=== PATIENT | female | born 1940 | race Caucasian/White ===

== ENCOUNTER 2023-12-06 11:36 | Emergency (ER) | payer MEDICARE, SELFPAY ==
--- NOTE | ~2023-12-06 | CT_ITS ---
EXAMINATION: CT HEAD WITHOUT CONTRAST CT CERVICAL SPINE WITHOUT CONTRAST CLINICAL INFORMATION: Head trauma. COMPARISON: None. TECHNIQUE: Contiguous axial imaging was performed from the skull base to vertex without intravenous administration of contrast. Contiguous axial imaging was performed from the upper chest through the skull base without intravenous administration of contrast. Coronal and sagittal reformats were obtained at the acquisition workstation. This CT examination was performed using dose optimization techniques as appropriate, variously including the following: *Automated exposure control *Adjustment of mA and/or kV according to patient size (this includes techniques or standardized protocols for targeted exams where dose is matched to indication/reason for exam; i.e. extremities or head) *Use of iterative reconstruction technique DLP: 879 mGy-cm FINDINGS: Head: There is no evidence of acute intracranial hemorrhage or edematous territorial infarction. Scattered hypoattenuation in the periventricular and deep white matter are consistent with moderate microangiopathy. [place]-white matter differentiation is preserved. Proportional prominence of the ventricles and sulcal spaces. No evidence for obstructive hydrocephalus. No abnormal mass effect or midline shift. No extra-axial fluid collections. Occipital scalp hematoma. No displaced calvarial fracture. The mastoid air cells and paranasal sinuses are clear.. Bilateral lens extraction Cervical Spine: The atlantooccipital and atlantoaxial articulations remain well aligned. No evidence of acute compression deformity or traumatic subluxation. Severe multilevel cervical spondylosis with intervertebral disc height loss, osteophyte complexes and facet/uncal hypertrophy leading to various degrees of neural foraminal encroachment and central canal stenosis. 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 Very prominent posterior longitudinal ligament calcifications leading to anterior spinal canal indentation. Of note, CT is insensitive for evaluation of the central spinal canal in the absence of intrathecal contrast. No prevertebral soft tissue thickening. The thyroid gland and remaining cervical soft tissues are normal in appearance. Few upper lobe nodule as, largest measuring 5 mm in the right apex with internal cystic changes (11:206). CT/CT cervical spine wo IV con IMPRESSION: 1. Occipital scalp hematoma without evidence of acute intracranial hemorrhage or edematous territorial infarction. 2. No acute cervical spinal fractures or malalignment. 3. 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 Consider further evaluation with an MRI of the cervical spine to correlate for myelopathy as clinically warranted. 4. Few upper lobe pulmonary nodules, largest measuring 5 mm. According to the UPDATED 2017 Fleischner Society recommendations, the advised follow-up imaging for multiple solid nodules measuring up to 6-8 mm is follow-up CT at 3 to 6 months.
[2023-12-06 11:44] VITALS: BP 137/78; BP 142/69; PULSE 57; PULSE 75; RESP 16; TEMP 36.8; O2SAT 97; O2SAT 98; BMI 22.9
--- NOTE | 2023-12-06 11:50 | PC.NURSE ---
biba from home d/t unwitnessed fall. pt was ambulating w/o use of assistive device and slipped on a wooden floor. +headstrike, -loc +coumadin. EMS noticed large hematoma to occipital region but not witnessed by this RN at this time d/t pt being in c-collar and spine immobilization needs to be in place at this time. pt alert and oriented x 3 - unaware on what year it is. states the year is 2013. otherwise pt has no complaints aside from 5/10 BULLARD. denies dizziness/lightheadedness/change in vision. pt seems to be in no apparent distress. no sob/wob noted. respirations even/unlabored. plan of care ongoing. call nielsen placed within reach.
[2023-12-06 12:07] LABS: MANUAL DIFF FLAG NO
--- NOTE | 2023-12-06 12:09 | ED_ITS ---
HPI - Fall General Chief Complaint: Fall Stated Complaint: FALL,HEMATOME ON FACE,ON COUMADIN PER EMS Time Seen by Provider: 12/06/23 11:42 Source: patient and EMS Mode of arrival: EMS Limitations: no limitations History of Present Illness ED Provider: WERO GALLAGHER Narrative: 83 yo female with PMH of DM, afib on coumadin who lives with her presents with c/o trip and fall at home hitting back of head on side of tub. States she slipped had no preceding symptoms and did not have LOC. She got right up. Patient on arrival knows it is November but initially confused on but corrected, knows where she is and who the president is. She denies any injury other than contusion to the head MD complaint: fall Onset (ago): minute(s) ([employer] ENGINE[employer]) Fall from: standing Fall witnessed: no Place fall occurred: home Loss of consciousness: none Prolonged down time: no Symptoms prior to fall: none Context: tripped/slipped Location of injury: head Severity: mild Quality: aching Associated symptoms (after fall): headache Related Data Allergies Allergy/AdvReac Type Severity Reaction Status Date / Time Iodinated Contrast Media AdvReac Abdominal Verified 12/06/23 11:45 [Contrast Dye] Pain Review of Systems 2 Review of Systems: Constitutional : No Fever, No Chills, No Fatigue ENT/Mouth : No sore throat, No Rhinorrhea Eyes: No Eye Pain, No Swelling, No Redness Cardiovascular : No Chest Pain, No SOB, No Dyspnea on Exertion Respiratory : No Cough, No Sputum Gastrointestinal : No Nausea, No Vomiting, No Diarrhea, No abdominal Pain Genitourinary : No Dysuria, No Urinary Frequency, No Hematuria, Musculoskeletal : No joint pain, No Myalgias, No Joint Swelling Skin : No Skin Lesions, No rash Neuro : No Weakness, No Numbness, No Dizziness, positive Headache Psych : No Anxiety/Panic, No Depression Heme/Lymph: No Bruising, No Bleeding,No Lymphadenopathy All other systems reviewed and are negative [facility] Past Medical History Attestation statement: The following information was validated with the patient. Source: old records reviewed Medical History Diabetes Afib Social History Social History (Updated 12/06/23 @ 12:15 by Gwendolyn Kramer DO) Patient Tobacco Use Status: Never used Tobacco Smoked in Last 30 Days: No Use of substances other than those prescribed or required for medical reasons: No Advance Directives: No Advance Directives Information Provided: No Do you have a plan to hurt others: No Plan Physical Exam 2 Vital Signs: Vital Signs: Last Vital Signs Temp 97.6 F 12/06/23 12:54 Pulse 60 12/06/23 12:54 Resp 16 12/06/23 12:54 BP 117/57 L 12/06/23 12:54 Pulse Ox 98 12/06/23 12:54 O2 Del Method Room Air 12/06/23 12:54 BMI result Body Mass Index 22.9 Appearance: Alert. Oriented X3 initially confused on year. No acute distress. Eyes: Pupils equal, round and reactive to light. ENT: Pharynx normal. no blood in nose or ears, hematoma to occiput Neck: Normal inspection. Neck supple. CVS: Normal heart rate and rhythm. Pulses normal. Respiratory: No respiratory distress. Breath sounds normal. Abdomen: Soft and nontender. Skin: Skin warm and dry. Normal skin color. Normal skin turgor. Extremities: No lower extremity edema. No calf ttp Neuro: Oriented X 3. No motor deficit. No sensory deficit. Course Course Course Narrative: also notes trip and fall Medical Decision Making Medical Decision Making [facility] Narrative: 83 yo female with PMH of DM and afib on coumadin here with c/o mechanical trip and fall at this time denies LOC states she got right up will need basic labs, CT head/cspine. Will continue to monitor and evaluate for any signs of neuro decompensation and work up for ICH. She denies prodrome and states this was a trip and fall Differential Diagnosis Differential Diagnoses: The differential diagnosis associated with the presentation includes head injury, ICH, fall Admission/Observation Consideration of admission/observation: Escalation of care including admission/observation considered at baseline per has early dementia and dates are hard for her labs reassuring mild bump in glucose INR 1.6 no myelopathy symptoms Lab Data [facility] Lab Attestation statement: I reviewed the patient's lab results. 12/06/23 12:04 12/06/23 12:04 Labs: Lab Results 12/06/23 Range/Units 12:04 WBC 6.2 (4.8-10.8) X10*3/uL RBC 3.76 L (4.20-5.50) X10*6/uL Hgb 12.0 (12.0-16.0) g/dl Hct 34.4 L (37.0-47.0) % MCV 91.5 (80.0-98.0) fL MCH 31.9 (27.0-33.0) pg MCHC 34.9 (31.0-35.0) g/dl RDW 12.3 (11.0-16.0) % Plt Count 182 (160-400) X10*3/uL MPV 9.1 L (9.4-12.3) fL Immature Gran % (Auto) 0.3 (0.0-0.4) % Neut % (Auto) 76.0 H (45-73) % Lymph % (Auto) 14.2 L (20-40) % [place] % (Auto) 8.2 (2-11) % Eos % (Auto) 0.8 (0-4) % Baso % (Auto) 0.5 (0-2) % Lymph # (Auto) 0.9 L (1.2-4.9) X10*3/uL [place] # (Auto) 0.5 (0.1-1.2) X10*3/uL Eos # (Auto) 0.1 (0.0-0.4) X10*3/uL Baso # (Auto) 0.0 (0.0-0.2) X10*3/uL Abs Immat Gran (auto) 0.02 (0.00-0.03) X10*3/uL Absolute Neuts (auto) 4.7 (2.0-8.3) x10*3/uL Absolute Nucleated RBC 0.000 (0.0-0.012) X10*3/uL Nucleated RBC % (auto) 0.0 (0.0-0.2) /100WBC PT 19.1 H (11.1-13.3) SEC INR 1.6 H (0.9-1.1) Sodium 140 (135-145) mmol/L Potassium 4.3 (3.3-5.1) mmol/L Chloride 103 (96-108) mmol/L Carbon Dioxide 28 (22-29) mmol/L Anion Gap 13 (12-20) BUN 25 H (9-16) mg/dL Creatinine 0.88 (0.5-1.4) mg/dL Estim Creat Clear Calc 39.6 Estimated GFR > 60 Random Glucose 326 H (60-115) mg/dL Calcium 9.0 (8.4-10.2) mg/dL Independent Interpretation I performed an independent interpretation of an: CT Scan (no trauma) Radiology Impression Discussion of test interpretation with radiology: I have reviewed the radiologist's reading. Independent Historian Clinical information obtained from an independent historian. History obtained from or confirmed by: EMS Discharge Plan Discharge Clinical Impression: Head injury Qualifiers: Encounter type: initial encounter Qualified Code(s): S09.90XA - Unspecified injury of head, initial encounter Hematoma of scalp Qualifiers: Encounter type: initial encounter Qualified Code(s): S00.03XA - Contusion of scalp, initial encounter Patient Disposition: Home, Self-Care Instructions: Head Injury (ED), Contusion in Adults (ED) Additional Instructions: INR 1.6 touch base with doctor tomorrow about coumadin level nonspecific nodules seen on CT scan of lung repeat CT scan of lung in 3 to 6 months notify your doctor no skull fracture or bleeding in the brain noted on exam return for worsening pain, confusion, vomiting or any other concerns. CT/CT cervical spine wo IV con IMPRESSION: 1. Occipital scalp hematoma without evidence of acute intracranial hemorrhage or edematous territorial infarction. 2. No acute cervical spinal fractures or malalignment. 3. 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 Consider further evaluation with an MRI of the cervical spine to correlate for myelopathy as clinically warranted. 4. Few upper lobe pulmonary nodules, largest measuring 5 mm. According to the UPDATED 2017 Fleischner Society recommendations, the advised follow-up imaging for multiple solid nodules measuring up to 6-8 mm is follow-up CT at 3 to 6 months. Print Language: Italian
[2023-12-06 12:10] LABS: Basophils Percent Auto 0.5 % (0-2); Eosinophils Absolute Auto 0.1 X10*3/uL (0.0-0.4); Eosinophils Percent Auto 0.8 % (0-4); Hematocrit 34.4 % (37.0-47.0); Imm Gran Abs Auto 0.02 X10*3/uL (0.00-0.03); Imm Gran Pct Auto 0.3 % (0.0-0.4); Lymphocytes Absolute Auto 0.9 X10*3/uL (1.2-4.9); Lymphocytes Percent Auto 14.2 % (20-40); Mean Corpuscular HGB Conc 34.9 g/dl (31.0-35.0); Mean Corpuscular Hemoglobin 31.9 pg (27.0-33.0); Mean Corpuscular Volume 91.5 fL (80.0-98.0); Mean Platelet Volume 9.1 fL (9.4-12.3); Monocytes Absolute Auto 0.5 X10*3/uL (0.1-1.2); Monocytes Percent Auto 8.2 % (2-11); Neutrophils Absolute Auto 4.7 x10*3/uL (2.0-8.3); Platelet Count 182 X10*3/uL (160-400); Red Blood Count 3.76 X10*6/uL (4.20-5.50); Red Cell Distribution Width 12.3 % (11.0-16.0); White Blood Count 6.2 X10*3/uL (4.8-10.8)
[2023-12-06 12:21] LABS: INTERNATIONAL NORM RATIO 1.6 (0.9-1.1); Prothrombin Time 19.1 SEC (11.1-13.3)
[2023-12-06 12:23] LABS: Anion Gap 13 (12-20); Blood Urea Nitrogen 25 mg/dL (9-16); Carbon Dioxide 28 mmol/L (22-29); Chloride 103 mmol/L (96-108); Creatinine Clr Calc Pharmacy 39.6; Estimated Glomerular Filt Rate > 60; Glucose Random 326 mg/dL (60-115); Potassium 4.3 mmol/L (3.3-5.1); Sodium 140 mmol/L (135-145)
[2023-12-06 12:54] VITALS: BP 117/57; PULSE 60; RESP 16; TEMP 36.4; O2SAT 98
[2023-12-06 14:15] VITALS: BP 130/87; PULSE 60; RESP 14; O2SAT 98
[2023-12-06 14:28] VITALS: BP 130/87; PULSE 60; RESP 14; TEMP 36.4; O2SAT 98
== END 2023-12-06 14:29 | disposition home or self-care (01) ==
PROVIDERS: Emergency Provider Emergency Medicine
DX: S00.03XA Contusion of scalp, initial encounter (principal); R51.9 Headache, unspecified; M54.2 Cervicalgia; W01.10XA Fall on same level from slipping, tripping and stumbling with subsequent striking against unspecified object, initial encounter; Y93.9 Activity, unspecified; Y92.002 Bathroom of unspecified non-institutional (private) residence as the place of occurrence of the external cause; Y99.8 Other external cause status; Z79.899 Other long term (current) drug therapy
CPT/HCPCS: 36415; 70450; 72125; 80048; 85025; 85610; 99284

== ENCOUNTER 2024-04-22 10:02 | Emergency (ER) | payer MEDICARE, SELFPAY ==
--- NOTE | 2024-04-22 10:29 | ECG_ITS ---
Test Reason : TACHY Blood Pressure : / mmHG Vent. Rate : 069 BPM Atrial Rate : 107 BPM P-R Int : 000 ms QRS Dur : 170 ms QT Int : 470 ms P-R-T Axes : 000 270 082 degrees QTc Int : 503 ms Ventricular-paced rhythm with premature ventricular or aberrantly conducted complexes Abnormal ECG No previous ECGs available Referred By: Generic ED Physician Electronically Signed By:CHON LIZARRAGA MD
[2024-04-22 10:30] VITALS: BP 144/73; BP 156/87; PULSE 69; PULSE 71; RESP 14; TEMP 36.8; O2SAT 100; O2SAT 99; BMI 29.4
[2024-04-22 10:34] VITALS: BP 144/73; PULSE 69; RESP 14; TEMP 36.8; O2SAT 99
--- NOTE | 2024-04-22 10:37 | MHC.EDTECH ---
EKG complete. Patient tolerated very well. Patient resting. Patient states she is comfortable. Call nielsen placed within reach.
[2024-04-22 10:53] LABS: MANUAL DIFF FLAG NO
[2024-04-22 10:59] LABS: Basophils Percent Auto 0.6 % (0-2); Eosinophils Absolute Auto 0.1 X10*3/uL (0.0-0.4); Eosinophils Percent Auto 1.3 % (0-4); Hematocrit 34.8 % (37.0-47.0); Hemoglobin 11.7 g/dl (12.0-16.0); Imm Gran Abs Auto 0.04 X10*3/uL (0.00-0.03); Imm Gran Pct Auto 0.6 % (0.0-0.4); Lymphocytes Absolute Auto 0.9 X10*3/uL (1.2-4.9); Lymphocytes Percent Auto 12.3 % (20-40); Mean Corpuscular HGB Conc 33.6 g/dl (31.0-35.0); Mean Corpuscular Hemoglobin 31.4 pg (27.0-33.0); Mean Corpuscular Volume 93.3 fL (80.0-98.0); Mean Platelet Volume 8.8 fL (9.4-12.3); Monocytes Absolute Auto 0.4 X10*3/uL (0.1-1.2); Monocytes Percent Auto 6.1 % (2-11); Neutrophils Absolute Auto 5.6 x10*3/uL (2.0-8.3); Neutrophils Percent Auto 79.1 % (45-73); Platelet Count 182 X10*3/uL (160-400); Red Blood Count 3.73 X10*6/uL (4.20-5.50); Red Cell Distribution Width 13.2 % (11.0-16.0)
--- NOTE | 2024-04-22 11:10 | ED.ARRPALP ---
HPI - Arrhythmia/Palpitations General Chief Complaint: Arrhythmia/Palpitations Stated Complaint: TACHY/BULLARD/N PER EMS Time Seen by Provider: 04/22/24 11:08 Source: EMS Mode of arrival: EMS Limitations: other History of Present Illness HPI narrative: 84-year-old with advanced dementia very limited historian had a pacemaker placed on March 28 who presents emergency department after noted to have a burning sensation in her chest and a blood pressure that was elevated. Patient was also reported to have a heart rate in the 110s patient's heart rate has been in the 70s for AMS and here patient is a very poor historian has no complaints on arrival was sent for x-ray and labs which have all resulted and are normal. Related Data Allergies Allergy/AdvReac Type Severity Reaction Status Date / Time Iodinated Contrast Media AdvReac Abdominal Verified 04/22/24 10:32 [Contrast Dye] Pain Review of Systems Review of Systems: Review of systems: General: Patient denies any fever chills recent illness or falls Musculoskeletal: Denies back pain or body aches or other injuries HEENT: denies headache, runny nose, ear pain Respiratory: denies shortness of breath, cough Cardiovascular: no chest pain or palpitations : denies dysuria, frequency Abdomen: no nausea vomiting denies abdominal pain Extremities: no swelling, no pain Skin: no diaphoresis Yes all other systems are reviewed and are negative [facility] Past Medical History Medical History Diabetes Afib Social History Social History (Updated 12/06/23 @ 12:15 by Gwendolyn Kramer DO) Patient Tobacco Use Status: Never used Tobacco Smoked in Last 30 Days: No Use of substances other than those prescribed or required for medical reasons: No Advance Directives: No Advance Directives Information Provided: Yes Do you have a plan to hurt others: No Plan Physical Exam Vital Signs: Vital Signs: Last Vital Signs Temp 98 F 04/22/24 13:06 Pulse 70 04/22/24 13:06 Resp 10 L 04/22/24 13:06 BP 116/68 04/22/24 13:06 Pulse Ox 98 04/22/24 13:06 O2 Del Method Room Air 04/22/24 13:06 BMI result Body Mass Index 29.4 General: Well-appearing well-nourished in no signs of distress HEENT: Normocephalic atraumatic Neck: No signs of JVD, no masses no tenderness or lymphadenopathy Cardiovascular: Regular rate and rhythm Respiratory: Clear to auscultation bilaterally Abdomen: Soft nontender no masses Extremities: Normal pedal pulses no signs of edema Skin: Dry warm no rashes Back: No tenderness full ROM Course Course Course Narrative: The pacer was interrogated by [employer] rep. Apparently was under since the patient's settings were changed x-ray and labs all look okay we are still waiting on the 2nd troponin at this time I do feel the patient will be able to go home. Reevaluation(s) Reevaluation #1: 1351 Labs are okay I will send home. Medical Decision Making Medical Decision Making [facility] Narrative: We will check labs and XR Differential Diagnosis Differential Diagnoses: The differential diagnosis associated with the presentation includes Arrhythmia dyspnea weakness dehydration electrolyte abnormality Lab Data 04/22/24 10:50 04/22/24 10:50 Labs: Lab Results 04/22/24 04/22/24 Range/Units 10:50 13:05 WBC 7.0 (4.8-10.8) X10*3/uL RBC 3.73 L (4.20-5.50) X10*6/uL Hgb 11.7 L (12.0-16.0) g/dl Hct 34.8 L (37.0-47.0) % MCV 93.3 (80.0-98.0) fL MCH 31.4 (27.0-33.0) pg MCHC 33.6 (31.0-35.0) g/dl RDW 13.2 (11.0-16.0) % Plt Count 182 (160-400) X10*3/uL MPV 8.8 L (9.4-12.3) fL Immature Gran % (Auto) 0.6 H (0.0-0.4) % Neut % (Auto) 79.1 H (45-73) % Lymph % (Auto) 12.3 L (20-40) % [place] % (Auto) 6.1 (2-11) % Eos % (Auto) 1.3 (0-4) % Baso % (Auto) 0.6 (0-2) % Lymph # (Auto) 0.9 L (1.2-4.9) X10*3/uL [place] # (Auto) 0.4 (0.1-1.2) X10*3/uL Eos # (Auto) 0.1 (0.0-0.4) X10*3/uL Baso # (Auto) 0.0 (0.0-0.2) X10*3/uL Abs Immat Gran (auto) 0.04 H (0.00-0.03) X10*3/uL Absolute Neuts (auto) 5.6 (2.0-8.3) x10*3/uL Absolute Nucleated RBC 0.000 (0.0-0.012) X10*3/uL Nucleated RBC % (auto) 0.0 (0.0-0.2) /100WBC Sodium 140 (135-145) mmol/L Potassium 4.4 (3.3-5.1) mmol/L Chloride 105 (96-108) mmol/L Carbon Dioxide 24 (22-29) mmol/L Anion Gap 15 (12-20) BUN 25 H (9-16) mg/dL Creatinine 0.84 (0.5-1.4) mg/dL Estim Creat Clear Calc 40.8 Estimated GFR > 60 Random Glucose 175 H (60-115) mg/dL Calcium 9.2 (8.4-10.2) mg/dL Troponin I High Sens 10.8 14.0 (<3.5-17.0) ng/L Discharge Plan Discharge Clinical Impression: Palpitations Patient Disposition: Home, Self-Care Instructions: Heart Palpitations (DC) Additional Instructions: You were seen today for palpitations. The setting on your pacemaker were changed. You also had XR and labs checked. Please call to follow up with your doctor Print Language: Mozambican
--- NOTE | 2024-04-22 11:29 | PC.NURSE ---
Pt. needs a pacemaker interrogation. Pacemaker is the [employer] brand. Call was made to customer service for the company. They took the pt.'s information, [facility] [place] and said that a rep. will be in touch to come out for an interrogation.
[2024-04-22 12:05] LABS: Anion Gap 15 (12-20); Blood Urea Nitrogen 25 mg/dL (9-16); Calcium 9.2 mg/dL (8.4-10.2); Carbon Dioxide 24 mmol/L (22-29); Chloride 105 mmol/L (96-108); Creatinine Clr Calc Pharmacy 40.8; Estimated Glomerular Filt Rate > 60; Glucose Random 175 mg/dL (60-115); Potassium 4.4 mmol/L (3.3-5.1); Sodium 140 mmol/L (135-145)
[2024-04-22 12:10] LABS: Troponin-I High Sensitivity 10.8 ng/L (<3.5-17.0)
--- NOTE | 2024-04-22 12:40 | PC.NURSE ---
Sha from [employer] called. States that he will be at [facility] by 1:30 to interrogate pt.'s pacemaker.
[2024-04-22 13:06] VITALS: BP 116/68; PULSE 70; RESP 10; TEMP 36.6; O2SAT 98
[2024-04-22 14:28] VITALS: BP 125/66; PULSE 71; RESP 15; TEMP 36.8; O2SAT 98
== END 2024-04-22 14:38 | disposition home or self-care (01) ==
PROVIDERS: Emergency Provider Student in an Organized Health Care Education/Training Program; PCP Internal Medicine Geriatric Medicine
DX: R00.2 Palpitations (principal); R00.0 Tachycardia, unspecified; E11.9 Type 2 diabetes mellitus without complications; I48.91 Unspecified atrial fibrillation; Z95.0 Presence of cardiac pacemaker
CPT/HCPCS: 36415; 80048; 84484; 85025; 93005; 99284; 99285

== ENCOUNTER → 2024-04-22 10:29 | Outpatient (BNV) | payer MEDICARE, MEDICAID, SELFPAY | PROVIDERS: Emergency Provider Student in an Organized Health Care Education/Training Program; PCP Internal Medicine Geriatric Medicine; Visit Provider Internal Medicine Cardiovascular Disease | DX: R94.31 Abnormal electrocardiogram [ECG] [EKG] (principal) | CPT/HCPCS: 93010 ==

== ENCOUNTER 2025-01-29 23:42 | Emergency (ER) | payer MEDICARE, SELFPAY ==
--- NOTE | 2025-01-29 | ECG_ITS ---
Test Reason : CP Blood Pressure : */* mmHG Vent. Rate : 65 BPM Atrial Rate : 65 BPM P-R Int : 176 ms QRS Dur : 182 ms QT Int : 482 ms P-R-T Axes : * 254 85 degrees QTcB Int : 501 ms AV dual-paced rhythm Abnormal ECG When compared with ECG of 22-Apr-2024 10:24, No significant changes seen Referred By: Generic ED Physician Electronically Signed By: Abelino Joaquin
[2025-01-29 23:50] VITALS: BP 136/70; BP 137/70; PULSE 69; PULSE 98; RESP 19; TEMP 37.1; O2SAT 96; O2SAT 98; BMI 25.4
[2025-01-30] VITALS: BP 140/67; PULSE 69; RESP 15; O2SAT 97
--- NOTE | 2025-01-30 | PC.NURSE ---
pt biba from home c/o left sided chest pain radiating to left side of back x 1 hr [employer]. pt reports associated nausea. denies any episodes of vomiting/sob/diaphoresis. hx afib (+warfarin), pacemaker in place. 324 ASA and 0.4mg sublingual nitro administered w/ some effectiveness. hx dementia. upon ED arrival - pt mostly alert and oriented. confused at times. pleasant. vss and up to date. nsr - a-paced on the air sampling and monitoring. 20gIV in the left AC via EMS - patent/intact. additional 18gIV placed in the right AC - labs obtained/sent to lab. ekg obtained by tech. pt also reports feeling unwell and extra sleepy x 4 days. denies any urinary sx/fevers/chills. pt on RA w/o difficulty. no sob/wob noted. respirations even/unlabored. plan of care ongoing. call nielsen placed within reach.
[2025-01-30 00:04] LABS: MANUAL DIFF FLAG NO
[2025-01-30 00:07] LABS: Hematocrit 30.2 % (37.0-47.0); Hemoglobin 10.2 g/dl (12.0-16.0); Imm Gran Abs Auto 0.03 X10*3/uL (0.00-0.03); Imm Gran Pct Auto 0.4 % (0.0-0.4); Lymphocytes Absolute Auto 0.5 X10*3/uL (1.2-4.9); Mean Corpuscular HGB Conc 33.8 g/dl (31.0-35.0); Mean Corpuscular Hemoglobin 31.1 pg (27.0-33.0); Mean Corpuscular Volume 92.1 fL (80.0-98.0); NRBC Abs Auto 0.000 X10*3/uL (0.0-0.012); NRBC Pct Auto 0.0 /100WBC (0.0-0.2); Platelet Count 181 X10*3/uL (160-400); Red Blood Count 3.28 X10*6/uL (4.20-5.50); White Blood Count 7.0 X10*3/uL (4.8-10.8)
[2025-01-30 00:14] LABS: INTERNATIONAL NORM RATIO 4.3 (0.9-1.1); Prothrombin Time 48.9 SEC (10.9-12.4)
--- NOTE | 2025-01-30 00:14 | ED.CHESTPAIN ---
HPI - Chest Pain General Chief Complaint: Chest Pain Stated Complaint: Chest Pain radiate to the back Time Seen by Provider: 01/30/25 00:14 Source: patient Mode of arrival: ambulatory Limitations: no limitations History of Present Illness ED Provider: HPI narrative: Patient's history of atrial fibrillation status post pacemaker which was placed about 10 years ago your just got the battery change in 07/13 been having discomfort at the pacemaker site for last few days got worse earlier today feeling the pain at around the pacemaker going to the back no syncope episode no palpitation for last 4 days patient is also not feeling well no fever no chills does have some nausea no vomiting no urinary symptom no abdominal pain Related Data Allergies Allergy/AdvReac Type Severity Reaction Status Date / Time Iodinated Contrast Media AdvReac Abdominal Verified 01/29/25 23:51 (Contrast Dye) Pain Review of Systems Review of Systems: Yes all other systems are reviewed and are negative [facility] Past Medical History Medical History Diabetes Afib Social History Social History Patient Tobacco Use Status: Never used Tobacco Smoked in Last 30 Days: No Use of substances other than those prescribed or required for medical reasons: No Advance Directives: No Advance Directives Information Provided: Yes Do you have a plan to hurt others: No Plan Physical Exam Vital Signs: Vital Signs: Last Vital Signs Temp 99.2 F 01/30/25 00:37 Pulse 69 01/30/25 00:37 Resp 17 01/30/25 00:37 BP 140/67 H 01/30/25 00:37 Pulse Ox 97 01/30/25 00:37 O2 Del Method Room Air 01/30/25 00:37 BMI result Body Mass Index 25.4 Appearance: Alert. Oriented X3. No acute distress. Eyes: No pallor or icterus ENT: Pharynx normal. Oral Mucosa moist Neck: Normal inspection. Neck supple. CVS: Normal heart rate and rhythm. Pulses normal. No murmur rub or gallop tenderness at the pacemaker site Respiratory: No respiratory distress. Equal air entry bilateral, no wheezing/rales/rhonchi Abdomen: Soft and nontender. Bowel sounds are present, no mass palpable, no CVA tenderness Skin: Skin warm and dry. Normal skin color. Normal skin turgor. Extremities: No lower extremity edema. No calf tenderness Neuro: Oriented X 3. No motor deficit. 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 01/29/25 23:59 01/29/25 23:59 Labs: Lab Results 01/29/25 01/30/25 01/30/25 Range/Units 23:59 00:41 01:43 WBC 7.0 (4.8-10.8) X10*3/uL RBC 3.28 L (4.20-5.50) X10*6/uL Hgb 10.2 L (12.0-16.0) g/dl Hct 30.2 L (37.0-47.0) % MCV 92.1 (80.0-98.0) fL MCH 31.1 (27.0-33.0) pg MCHC 33.8 (31.0-35.0) g/dl RDW 14.6 (11.0-16.0) % Plt Count 181 (160-400) X10*3/uL MPV 9.0 L (9.4-12.3) fL Immature Gran % (Auto) 0.4 (0.0-0.4) % Neut % (Auto) 79.6 H (45-73) % Lymph % (Auto) 7.1 L (20-40) % [place] % (Auto) 11.4 H (2-11) % Eos % (Auto) 1.1 (0-4) % Baso % (Auto) 0.4 (0-2) % Lymph # (Auto) 0.5 L (1.2-4.9) X10*3/uL [place] # (Auto) 0.8 (0.1-1.2) X10*3/uL Eos # (Auto) 0.1 (0.0-0.4) X10*3/uL Baso # (Auto) 0.0 (0.0-0.2) X10*3/uL Abs Immat Gran (auto) 0.03 (0.00-0.03) X10*3/uL Absolute Neuts (auto) 5.6 (2.0-8.3) x10*3/uL Absolute Nucleated RBC 0.000 (0.0-0.012) X10*3/uL Nucleated RBC % (auto) 0.0 (0.0-0.2) /100WBC PT 48.9 H (10.9-12.4) SEC INR 4.3 H D (0.9-1.1) APTT 51.5 H (26.7-34.1) SEC Sodium 142 (135-145) mmol/L Potassium 4.0 (3.3-5.1) mmol/L Chloride 105 (96-108) mmol/L Carbon Dioxide 27 (22-29) mmol/L Anion Gap 14 (12-20) BUN 24 H (9-16) mg/dL Creatinine 0.94 (0.5-1.4) mg/dL Estim Creat Clear Calc 40.2 Estimated GFR 57 Random Glucose 190 H (60-115) mg/dL Calcium 9.0 (8.4-10.2) mg/dL Magnesium 1.6 (1.6-2.6) mg/dL Total Bilirubin 0.6 (0.0-1.0) mg/dL AST 34 H (5-31) U/L ALT 22 (0-31) U/L Alkaline Phosphatase 94 (39-117) U/L Troponin I High Sens 30.1 H D 28.6 H (<3.5-17.0) ng/L B-Natriuretic Peptide 243 H (<100) pg/mL Total Protein 6.6 (6.5-8.0) g/dL Albumin 4.3 (3.5-5.0) g/dL Urine Color Yellow Urine Appearance Clear Urine pH 5.5 (5.0-9.0) Ur Specific [place] 1.015 (1.005-1.025) Urine Protein 100 (2+) H (Neg-Trace) mg/dL Urine Glucose (UA) Negative (Negative) mg/dL Urine Ketones Negative (Negative) mg/dL Urine Blood Trace H (Negative) Urine Nitrite Negative (Negative) Ur Leukocyte Esterase Trace H (Negative) Urine RBC 6-10 H (0-2) /HPF Urine WBC 0-5 (0-5) /HPF Ur Squamous Epith Cells 0-2 (0-2) /HPF Urine Bacteria None Seen (None Seen) Hyaline Casts 0-2 (0-2) /LPF Independent Interpretation I performed an independent interpretation of an: EKG Interpretation: Pacemaker beats ventricular rate of 65 beats per minute no acute ST-T changes no acute ischemia Discharge Plan Discharge Clinical Impression: Pacemaker syndrome Patient Disposition: Home, Self-Care Instructions: Chest Wall Pain (ED), Pacemaker (DC) Additional Instructions: Your pain in the left side of the chest is from the pacemaker Take Tylenol for pain as needed Follow up with your PCP/cardiogram Print Language: Serbian
[2025-01-30 00:17] LABS: Partial Thromboplastin Time 51.5 SEC (26.7-34.1)
[2025-01-30 00:19] LABS: Alanine Aminotransferase 22 U/L (0-31); Albumin Level 4.3 g/dL (3.5-5.0); Alkaline Phosphatase 94 U/L (39-117); Anion Gap 14 (12-20); Aspartate Amino Transferase 34 U/L (5-31); Blood Urea Nitrogen 24 mg/dL (9-16); Calcium 9.0 mg/dL (8.4-10.2); Carbon Dioxide 27 mmol/L (22-29); Chloride 105 mmol/L (96-108); Creatinine Clr Calc Pharmacy 40.2; Estimated Glomerular Filt Rate 57; Magnesium 1.6 mg/dL (1.6-2.6); Potassium 4.0 mmol/L (3.3-5.1); Sodium 142 mmol/L (135-145); Total Protein 6.6 g/dL (6.5-8.0)
[2025-01-30 00:24] LABS: B Type Natriuretic Peptide 243 pg/mL (<100); Troponin-I High Sensitivity 30.1 ng/L (<3.5-17.0)
[2025-01-30 00:37] VITALS: BP 140/67; PULSE 69; RESP 17; TEMP 37.3; O2SAT 97
--- NOTE | 2025-01-30 00:41 | PC.NURSE ---
1:1 assist OOB d/t unsteady gait. pt assisted to the restroom. urine specimen utilized/sent to lab. pt seemingly warm to the touch - rectal temp obtained displaying 99.2. otherwise vss and up to date. nsr on the residential monitor - a-paced. pt remains on RA w/o difficulty. no sob/wob noted. respirations even/unlabored. remains bedside for support. plan of care ongoing. call nielsen placed within reach.
[2025-01-30 00:48] LABS: Appearance Urine Clear; Glucose Urine UA Negative (Negative); PH 5.5 (5.0-9.0); Specific Gravity - Urine 1.015 (1.005-1.025); UMIC TRIGGER UACC YES
[2025-01-30 02:06] LABS: Troponin-I High Sensitivity 28.6 ng/L (<3.5-17.0)
[2025-01-30 02:26] VITALS: BP 117/58; PULSE 70; RESP 13; TEMP 36.9; O2SAT 95
[2025-01-30 02:28] VITALS: BP 117/58; PULSE 70; RESP 13; TEMP 36.9; O2SAT 95
== END 2025-01-30 02:42 | disposition home or self-care (01) ==
PROVIDERS: Emergency Provider Internal Medicine
DX: R07.9 Chest pain, unspecified (principal); Z95.0 Presence of cardiac pacemaker; I48.91 Unspecified atrial fibrillation
CPT/HCPCS: 36415; 80053; 81001; 83735; 83880; 84484; 85025; 85610; 85730; 93005; 99283; 99285

== ENCOUNTER → 2025-01-29 23:53 | Outpatient (BNV) | payer MEDICARE, SELFPAY | PROVIDERS: Emergency Provider Internal Medicine; Visit Provider Internal Medicine Cardiovascular Disease | DX: R94.31 Abnormal electrocardiogram [ECG] [EKG] (principal); R07.9 Chest pain, unspecified | CPT/HCPCS: 93010 ==

== ENCOUNTER 2025-06-02 18:42 | Emergency (ER) | payer MEDICARE, MEDICAID, SELFPAY ==
--- OUTSIDE RECORDS SUMMARY | 2024-09-30 06:10 | XMS_ITS ---
Author Organization - [facility] Address [address] [place] [address] Care Team Providers Care Java Analyst Name Role Phone Danni Rodgers Unavailable [phone] BLADE LOPEZ Unavailable [phone] REASON FOR VISIT *Initial Care Plan Encounters Encounter Location Date Provider Diagnosis - [facility] [address] [place] [address] 09/30/2024 BLADE LOPEZ Plan Of Treatment No Information Procedure Notes * Category Sub-Category Detail Notes RN Interventions Initial RN intervent ions via MICROBIOLOGY DIRECTOR onboarding note Onboarding visit documentation reviewed to form today's care plan: . Based on chart review, the following iss ues were identified:: . Care Plan established for ea ch focus issues outlined in the MICROBIOLOGY DIRECTOR onboarding note:: . Community Providers PCP information updated in D MARBELLA, as needed: . Specialist information updated in DASH, as needed: . Pharmacy information updated in eCW and DASH, as needed: . RPM Did MICROBIOLOGY DIRECTOR order RPM?: . DME/Supplies Did MICROBIOLOGY DIRECTOR order DME/Supplies?: . ACP Forms Did MICROBIOLOGY DIRECTOR request ACP forms?: . Care Coordination Did MICROBIOLOGY DIRECTOR request any other care coordination?: . PERS Did MICROBIOLOGY DIRECTOR order PERS?: . RN Summary/Recommendations: General:Heal th Twist Packer:MICROBIOLOGY DIRECTOR:PEC:[place]:RN: License Verification Did you verify that you are licensed to practice in the member's state?: . Progress Notes * Jessica WORKMANDOB:1940 ( 85 yo F)Acc No.[id number]:09/30/2024 Patient: Jessica STEPHENSON Provider: JEFFREY CASTAÑEDA :1940 A ge:84 Y S ex:Female Date:09/30/2024 Address:[address], [address] , [id number] Subjective: * Chief Complaints: * 1 . *Initial Care Plan. * Medical History: Objective: * Vitals: Assessment: Plan: * Treatment: * Procedures: * *RN Interventions: Initial RN interventions via MICROBIOLOGY DIRECTOR onboarding note O nboarding visit documentation reviewed to form today's care plan . B ased on chart review, the following issues were identified: . C are Plan established for each focus issues outlined in the MICROBIOLOGY DIRECTOR onboarding note: . Community Providers P CP information updated in DASH, as needed?. S pecialist information updated in DASH, as needed . P harmacy information updated in eCW and DASH, as needed . RPM D id MICROBIOLOGY DIRECTOR order RPM? . DME/Supplies D id MICROBIOLOGY DIRECTOR order DME/Supplies? . ACP Forms D id MICROBIOLOGY DIRECTOR request ACP forms? . Care Coordination D id MICROBIOLOGY DIRECTOR request any other care coordination??. PERS D id MICROBIOLOGY DIRECTOR order PERS? . RN Summary/Recommendations: General: Health Twist Packer: MICROBIOLOGY DIRECTOR: PEC: [place]: RN:. License Verification D id you verify that you are licensed to practice in the member's state? . Care Plan: * Problems: * Billing Information: * Visit Code: * Procedure Codes: Care Plan Details* * Electronic signature of JEFFREY DUMONT RA on 06/02/2025 at 10:54 PM EST Sign off status: Pending * Provider: JEFFREY CASTAÑEDA Date: 0 09/30/2024 Generated for Branden ramirez/Norman/Edil on: 1 08/03/2024 10:54 PM EST
--- OUTSIDE RECORDS SUMMARY | 2025-05-28 23:59 | XMS_ITS | Continuity of Care Document ---
Author Organization [facility] Address [address] [place] [address]- Care Team Providers Care Strategic Partnership Manager Name Role Phone Dagoberto VALENCIA, Michaela Pulido Primary Care Physician [phone] Encounter [facility] Date(s): 04/28/25 - 05/28/25 [facility] [place] [address] [place] [address]- Encounter Type: Triage Allergies, Adverse Reactions, Alerts Substance Criticality Severity Reaction Reaction Severity Status clindamycin diarrhea and c. diff Active penicillin V potassium 1 Unable to assess criticality Persistent Moderate Tongue swelling Active donepezil Diarrhea Active iodinated radiocontrast dyes Allergy to IVP dye. Allergy to IVP dye. Active Demerol HCl Active Adhesive Bandage Act alex Latex Active 1swollen tongue Immunizations Given and Recorded Vaccine Date Status Refusal Reason influenza virus vaccine, inactivated 04/11/25 Heriberto rded influenza virus vaccine, inactivated 03/16/22 Heriberto rded influenza virus vaccine, inactivated 02/26/20 Heriberto rded influenza virus vaccine, inactivated 03/27/19 Heriberto rded influenza virus vaccine, inactivated 04/30/18 Give n influenza virus vaccine, inactivated 1 04/05/17 Re corded influenza virus vaccine, inactivated 9/14/16 Heriberto rded influenza virus vaccine, inactivated 03/10/11 Heriberto rded influenza virus vaccine, inactivated 04/26/10 Heriberto rded influenza virus vaccine, inactivated 02/06/09 Heriberto rded tetanus-diphtheria toxoids (Td) 12/18/23 Given SARS-CoV-2(COVID-19)mRNA-LNP vac([id number]) 05/24/23 Recorded RSV vaccine preF3, recombinant 2 05/09/23 Recorded RSV vaccine preF3, recombinant 05/09/23 Recorded [id number] 12y+ bivalent booster vax 03/16/22 Recorded SARS-CoV-2 mRNA ([id number]) vax 10/06/21 Recorded SARS-CoV-2 (COVID-19) mRNA BNT-162b2 vac 04/13/21 Recorded SARS-CoV-2 (COVID-19) mRNA BNT-162b2 vac 07/29/20 Recorded SARS-CoV-2 (COVID-19) mRNA BNT-162b2 vac 07/08/20 Recorded zoster vaccine, inactivated 12/22/20 Recorded zoster vaccine, inactivated 04/06/20 Recorded pneumococcal 13-valent vaccine 08/28/14 Recorded tetanus/diphtheria/pertussis, acel(Tdap) 08/27/13 Recorded Pneumovax 23 (oldterm) 06/19/08 Recorded 1Result Comment: [05/02/2017] [facility] 2Result Comment: done at [facility] Johny Zhong Medications acetaminophen 325 mg oral tablet 650 mg, 2, tablet, By Mouth, 2 times a day, # 112 tablet, Refills 2, Tot. Refills 2, Maintenance, 04/04/25 10:33:00 AM EDT, Route to Pharmacy Electronically, [facility], Partial fill upon patient request if the prescription is for a schedule II opioid drug., 172, cm, 03/20/25 13:27:00 EDT, Height, 66.8, kg, 03/03/25 17:00:00 EDT, Dry Weight Start Date: 04/04/25 Status: Ordered Medication Dispense Status: Completed Quantity: 112.0 Unit: tablet Total Allowed Fills: 3 Fills Dispensed: 0 Acidophilus Probiotic Blend oral capsule 1 capsule, By Mouth, Daily, # 28 capsule, 9 Refills, Maintenance, 03/04/25 10:14:00 PM EDT, [facility]; [facility], Partial fill upon patient request if the prescription is for a schedule II opioid drug., 1 capsule By Mouth Daily, 172, cm, 03/03/25 17:00:00 EDT, Height, 66.8, kg, 03/03/25 17:00:00 EDT, Dry Weight Start Date: 03/04/25 Status: Ordered Medication Dispense Status: Completed Quantity: 28.0 Unit: capsule Total Allowed Fills: 10 Fills Dispensed: 0 amiodarone 200 mg oral tablet 200 mg, 1, tablet, By Mouth, Daily, # 30 tablet, Refills 11, Tot. Refills 11, Maintenance, 09/18/24 3:33:00 PM EDT, Route to Pharmacy Electronically, [facility], replaces sotalol, 148, cm, 09/18/24 11:37:00 EDT, Height, 55, kg, 09/05/23 22:24:00 EDT, Dry Weight Start Date: 09/18/24 Status: Ordered Medication Dispense Status: Completed Quantity: 30.0 Unit: tablet Total Allowed Fills: 12 Fills Dispensed: 0 bifidobacterium-lactobacillus oral capsule 1 capsule, By Mouth, Daily, # 28 capsule, 5 Refills, Maintenance, 09/09/24 9:06:00 AM EDT, Capsule, [facility], Partial fill upon patient request if the prescription is for a schedule II opioid drug., 1 capsule By Mouth Daily, 148, cm, 07/03/24 14:04:00 EST, Height, 55, kg, 09/05/23 22:24:00 EDT, Dry Weight Start Date: 09/09/24 Status: Ordered Medication Dispense Status: Completed Quantity: 28.0 Unit: capsule Total Allowed Fills: 6 Fills Dispensed: 0 bumetanide 1 mg oral tablet 0.5 mg, 0.5, tablet, By Mouth, Daily, for 30 days, # 90 tablet, Refills 3, Tot. Refills 3, Physician Stop 12/08/25 4:11:00 PM EDT, 08/10/25 4:11:00 PM EST, Route to Pharmacy Electronically, [facility]/pharmacy #[id number], 152, cm, 02/15/25 0:36:00 EDT, Height, 68.14, kg, 02/15/25 0:36:00 EDT, Dry Weight Start Date: 08/10/25 Stop Date: 12/08/25 Status: Ordered Medication Dispense Status: Completed Quantity: 90.0 Unit: tablet Total Allowed Fills: 4 Fills Dispensed: 0 buPROPion 300 mg/24 hours (XL) oral tablet, extended release 1 tablet, By Mouth, Daily, # 28 tablet, 5 Refills, Maintenance, 02/28/25 9:54:00 AM EDT, [facility]/pharmacy #[id number], 152, cm, 02/24/25 9:38:00 EDT, Height, 68.14, kg, 02/15/25 0:36:00 EDT, Dry Weight Start Date: 02/28/25 Status: Ordered Medication Dispense Status: Completed Quantity: 28.0 Unit: tablet Total Allowed Fills: 6 Fills Dispensed: 0 busPIRone 5 mg oral tablet 1, tablet, By Mouth, 2 times a day, # 56 tablet, Refills 5, Tot. Refills 5, Maintenance, 02/28/25 9:54:00 AM EDT, Route to Pharmacy Electronically, [facility]/pharmacy #[id number], 152, cm, 02/24/25 9:38:00 EDT, Height, 68.14, kg, 02/15/25 0:36:00 EDT, Dry Weight Start Date: 02/28/25 Status: Ordered Medication Dispense Status: Completed Quantity: 56.0 Unit: tablet Total Allowed Fills: 6 Fills Dispensed: 0 diclofenac 1% topical gel See Instructions, APPLY 2 GRAMS TOPICALLY 4 TIMES A DAY DO NOT EXCEED 8 GRAMS/DAY/SINGLE JOINT OF UPPER EXTREMITIES, # 100 Gm, 1 Refills, [id number], 13, APPLY 2 GRAMS TOPICALLY 4 TIMES A DAY DONOT EXCEED 8 GRAMS/DAY/SINGLE JOINT OF UPPER EXTREMITIES, 152, cm, 05/19/21 11:27:00 EST, Height, 64.1, kg, 07/03/20 17:25:00 EST, Dry Weight Start Date: 07/02/21 Status: Ordered Medication Dispense Status: Completed Quantity: 100.0 Unit: g Total Allowed Fills: 1 Fills Dispensed: 0 escitalopram 10 mg oral tablet 1 tablet = 10 mg, By Mouth, Daily, # 28 tablet, 3 Refills, Maintenance, 05/27/25 10:57:00 PM EST, Tablet, [facility], Partial fill upon patient request if the prescription is for a schedule II opioid drug., 172, cm, 03/20/25 13:27:00 EDT, Height, 66.8, kg, 03/03/25 17:00:00 EDT, Dry Weight Start Date: 05/27/25 Status: Ordered Medication Dispense Status: Completed Quantity: 28.0 Unit: tablet Total Allowed Fills: 4 Fills Dispensed: 0 Feraheme 30 mg/mL intravenous solution = 510 mg, IV Infusion, Every 7 days, infused over at least 15 minutes, second dose in 3 to 8 days. To be given in Infusion., # 17 mL, 1 Refills, Maintenance, 02/04/25 2:55:00 AM EDT, Partial fill uponpatient request if the prescription is for a schedule II opioid drug. Start Date: 02/04/25 Status: Ordered Medication Dispense Status: Completed Quantity: 17.0 Unit: mL Total Allowed Fills: 2 Fills Dispensed: 0 ferrous sulfate (as elemental iron) 45 mg oral tablet, extended release 1 tablet = 45 mg, By Mouth, Daily, No refills, # 28 tablet, 9 Refills, Maintenance, 03/04/25 10:14:00 PM EDT, ER Tablet, [facility], Partial fill upon patient request if the prescription is for a schedule II opioid drug., 172, cm, 03/03/25 17:00:00 EDT, Height, 66.8, kg, 03/03/25 17:00:00 EDT, Dry Weight Start Date: 03/04/25 Status: Ordered Medication Dispense Status: Completed Quantity: 28.0 Unit: tablet Total Allowed Fills: 10 Fills Dispensed: 0 Fish Oil 1000 mg oral capsule See Instructions, TAKE 1 CAPSULE BY MOUTH 2 TIMES DAILY BEFORE BREAKFAST AND DINNER., # 56 capsule,5 Refills, Maintenance, 04/04/25 10:33:00 AM EDT, [facility], 172, cm, 03/20/25 13:27:00 EDT, Height, 66.8, kg, 03/03/25 17:00:00 EDT, Dry Weight Start Date: 04/04/25 Status: Ordered Medication Dispense Status: Completed Quantity: 56.0 Unit: capsule Total Allowed Fills: 6 Fills Dispensed: 0 glimepiride 1 mg oral tablet 1 tablet, By Mouth, Daily, # 30 tablet, 5 Refills, Maintenance, 05/26/25 12:25:00 PM [facility], 172, cm, 03/20/25 13:27:00 EDT, Height, 66.8, kg, 03/03/25 17:00:00 EDT, Dry Weight Start Date: 05/26/25 Status: Ordered Medication Dispense Status: Completed Quantity: 30.0 Unit: tablet Total Allowed Fills: 6 Fills Dispensed: 0 lidocaine 5% topical film PLEASE SEE ATTACHED FOR DETAILED DIRECTIONS Start Date: 03/18/25 Status: Ordered Medication Dispense Status: Completed Total Allowed Fills: 1 Fills Dispensed: 0 memantine 21 mg oral capsule, extended release See Instructions, TAKE (1) CAPSULE BY MOUTH EVERY DAY, # 28 capsule, 5 Refills, Maintenance, 01/03/25 11:46:00 AM EDT, [facility], 148, cm, 12/25/24 15:14:00 EDT, Height, 55, kg, 09/05/23 22:24:00 EDT, Dry Weight Start Date: 01/03/25 Status: Ordered Medication Dispense Status: Completed Quantity: 28.0 Unit: capsule Total Allowed Fills: 6 Fills Dispensed: 0 metFORMIN 1000 mg oral tablet See Instructions, 1/2 tablet every monring and 1 tablet By Mouth Daily with supper, # 42 tablet, 5 Refills, Maintenance, 05/26/25 12:25:00 PM [facility], 172, cm, 03/20/25 13:27:00 EDT, Height, 66.8, kg, 03/03/25 17:00:00 EDT, Dry Weight Start Date: 05/26/25 Status: Ordered Medication Dispense Status: Completed Quantity: 42.0 Unit: tablet Total Allowed Fills: 6 Fills Dispensed: 0 Nitrostat 0.4 mg sublingual tablet 1 tablet = 0.4 mg, Sublingual, Every 5 minutes, PRN for chest pain, # 100 tablet, 11 Refills, Maintenance, 05/13/24 1:46:00 PM EST, Tablet, [facility]/pharmacy #[id number], Partial fill upon patient request if the prescription is for a schedule II opioid drug., 148, cm, 05/13/24 12:58:00 EST, Height, 55, kg, 09/05/23 22:24:00 EDT, Dry Weight Start Date: 05/13/24 Status: Ordered Medication Dispense Status: Completed Quantity: 100.0 Unit: tablet Total Allowed Fills: 12 Fills Dispensed: 0 omeprazole 40 mg oral enteric coated capsule 1 capsule = 40 mg, By Mouth, Daily, PRN Control of Stomach Acid, for delivery in bubble pack, # 28 capsule, 5 Refills, Maintenance, 02/10/23 2:24:00 PM EDT, EC Capsule, [facility], Partial fill upon patient request if the prescription is for a schedule II opioid drug., 152, cm, 02/09/23 9:50:00 EDT, Height Start Date: 02/10/23 Status: Ordered Medication Dispense Status: Completed Quantity: 28.0 Unit: capsule Total Allowed Fills: 6 Fills Dispensed: 0 One Touch Delica Lancets See Instructions, # 100 each, Refills 3, Tot. Refills 3, Maintenance, 1 box = 100 lancets Sig: Use to test once daily and as needed for type 2 diabetes mellitus. E11.9, 02/14/22 3:28:00 PM EDT, Supply, 152, cm, 11/25/21 11:21:00 EDT, Height, 64.1, kg, 07/03/20 17:25:00 EST, Dry Weight Start Date: 02/14/22 Status: Ordered Medication Dispense Status: Completed Quantity: 100.0 Unit: each Total Allowed Fills: 4 Fills Dispensed: 0 One Touch Ultra 2 Glucose Meter See Instructions, # 1 each, Refills 1, Tot. Refills 1, Maintenance, DX E11.9 . Test BS 2 x a day, 12/13/21 5:26:00 PM EDT, Supply, 152, cm, 11/25/21 11:21:00 EDT, Height, 64.1, kg, 07/03/20 17:25:00 EST, Dry Weight Start Date: 12/13/21 Status: Ordered Medication Dispense Status: Completed Quantity: 1.0 Unit: each Total Allowed Fills: 2 Fills Dispensed: 0 ONE TOUCH ULTRA BLUE TEST STRP ONE TOUCH ULTRA BLUE TEST STRP, See Instructions, # 100 Unknown, 1 Refills, Maintenance, TEST BLOODGLUCOSE DAILY DX: E 11.9:, 10/08/24 7:12:00 PM EDT, 148, cm, 09/18/24 11:37:00 EDT, Height, 55, kg, 09/05/23 22:24:00 EDT, Dry Weight Start Date: 10/08/24 Status: Ordered Medication Dispense Status: Completed Quantity: 100.0 Unit: Unknown Total Allowed Fills: 1 Fills Dispensed: 0 rivastigmine 9.5 mg/24 hr transdermal film, extended release 1 patch, Topically, Daily, # 30 patch, 5 Refills, Maintenance, 08/06/24 2:50:00 PM EST, [facility]/pharmacy#[id number], 0, 1 patch Topically Daily, 148, cm, 07/03/24 14:04:00 EST, Height, 55, kg, 09/05/23 22:24:00 EDT, Dry Weight Start Date: 08/06/24 Status: Ordered Medication Dispense Status: Completed Quantity: 30.0 Unit: patch Total Allowed Fills: 6 Fills Dispensed: 0 Senior women's multivitamin Senior women's multivitamin, 1, tablet, By Mouth, Daily, # 28 tablet, Refills 5, Tot. Refills 5, Maintenance, Cancel vitamin B complex, 09/22/23 5:16:00 AM EDT, Supply, 144, cm, 09/21/23 9:51:00 EDT, Height, 55, kg, 09/05/23 22:24:00 EDT, Dry Weight Start Date: 09/22/23 Status: Ordered Medication Dispense Status: Completed Quantity: 28.0 Unit: tablet Total Allowed Fills: 6 Fills Dispensed: 0 simvastatin 10 mg oral tablet 1, tablet, By Mouth, Daily at bedtime, # 28 Unknown, Refills 9, Tot. Refills 9, Maintenance, 03/04/25 10:14:00 PM EDT, Route to Pharmacy Electronically, [facility], 172, cm, 03/03/25 17:00:00 EDT, Height, 66.8, kg, 03/03/25 17:00:00 EDT, Dry Weight Start Date: 03/04/25 Status: Ordered Medication Dispense Status: Completed Quantity: 28.0 Unit: Unknown Total Allowed Fills: 10 Fills Dispensed: 0 triamcinolone 0.1% topical cream 1 application, Topically, 2 times a day, PRN Rash, apply a thin film to affected area, # 60 Gm, 1 Refills, Maintenance, 07/03/24 3:04:00 PM EST, Cream, [facility]/pharmacy #[id number], Partial fill upon patient request if the prescription is for a schedule II opioid drug., 1 application Topically 2 times a day,[place] N:Rash,Instr:apply a thin film ; to affected area, 148, cm, 07/03/24 14:04:00 EST, Height, 55, kg, 09/05/23 22:24:00 EDT, Dry Weight Start Date: 07/03/24 Status: Ordered Medication Dispense Status: Completed Quantity: 60.0 Unit: g Total Allowed Fills: 2 Fills Dispensed: 0 Vitamin C 250 mg oral tablet 1 tablet, By Mouth, Daily, # 28 tablet, 9 Refills, Maintenance, 03/04/25 10:14:00 PM EDT, [facility], 172, cm, 03/03/25 17:00:00 EDT, Height, 66.8, kg, 03/03/25 17:00:00 EDT, Dry Weight Start Date: 03/04/25 Status: Ordered Medication Dispense Status: Completed Quantity: 28.0 Unit: tablet Total Allowed Fills: 10 Fills Dispensed: 0 Vitamin D3 1000 unit soft gel Vitamin D3 1000 unit soft gel, See Instructions, # 8 capsule, Refills 5, Tot. Refills 5, Maintenance, take 1 cap leonila Monday and , 02/28/25 9:54:00 AM EDT, Supply, 152, cm, 02/24/25 9:38:00 EDT, Height, 68.14, kg, 02/15/25 0:36:00 EDT, Dry Weight Start Date: 02/28/25 Status: Ordered Medication Dispense Status: Completed Quantity: 8.0 Unit: capsule Total Allowed Fills: 6 Fills Dispensed: 0 warfarin 2.5 mg oral tablet See Instructions, take 1/2 to 1 tablet By Mouth Daily as directed by the coumadin clinic (replaces 5 mg tabs), # 30 tablet, 5 Refills, Maintenance, 05/09/25 3:15:00 PM EST, Tablet, [facility], Partial fill upon patient request if the prescription is for a schedule II opioid drug., 172, cm, 03/20/25 13:27:00 EDT, Height, 66.8, kg, 03/03/25 17:00:00 EDT, Dry Weight Start Date: 05/09/25 Status: Ordered Medication Dispense Status: Completed Quantity: 30.0 Unit: tablet Total Allowed Fills: 6 Fills Dispensed: 0 warfarin 5 mg oral tablet 1.5 tablet, By Mouth, Daily, DIRECTED BY CLINIC AND INR LEVEL., # 45 tablet, 5 Refills, Maintenance, 12/27/24 11:56:00 PM EDT, [facility], 148, cm, 12/25/24 15:14:00 EDT, Height, 55, kg, 09/05/23 22:24:00 EDT, Dry Weight Start Date: 12/27/24 Status: Ordered Medication Dispense Status: Completed Quantity: 45.0 Unit: tablet Total Allowed Fills: 1 Fills Dispensed: 0 Problem List Condition Confirmation Course Effective Dates Status H ealth Status Informant Anemia Confirmed Active Generalized weakness Confirmed Active Atrial flutter Confirmed Active Basal cell carcinoma of skin of trunk Confirmed Active Cholelithiasis Confirmed Active Cardiomyopathy Confirmed Active Carpal tunnel syndrome Confirmed Active Chronic kidney disease, stage III (moderate) Confirmed Active Diarrhea Confirmed Active Diabetic nephropathy Confirmed Active Diverticulosis Confirmed Active Anticoagulated Confirmed Active Requires assistance with activities of daily living (ADL) Confirmed Active Frail elderly Confirmed Active Esophageal reflux Confirmed Active Generalized anxiety disorder Confirmed Active Heart failure with mildly reduced ejection fraction Confirmed Active (HFpEF) heart failure with preserved ejection fraction Confirmed Active Hypertension Confirmed Active Hypomagnesemia Confirmed Active Iron deficiency anemia Confirmed Active Nephrolithiasis Confirmed Active Low back pain Confirmed Active Depression, major, in remission Confirmed Active Obstructive sleep apnea Confirmed Active Onychomycosis Confirmed Active Osteopenia of hip Confirmed Active Atrial fibrillation Confirmed Active Hyperlipidemia Confirmed Active Scoliosis of thoracolumbar spine Confirmed Active SSS s/p PPM Confirmed Active Tricuspid regurgitation Confirmed Active Type 2 diabetes with nephropathy Confirmed Active Vascular dementia Confirmed Active Social History Social History Type Response Smoking Status Never smoker entered on: 03/09/15 Sexual Orientation Self described orien tation: ; Straight or heterosexual Sex Female Sex Representation Female (finding) Implantable Device List Procedure Provider Procedure Date Device Type Site Battery Change Pacemaker Single/Dual/Biv Dylon Turner MD 03/28/24 Unknown Chest Device Identifier Serial Number Lot or Batch Number Manufacturing Date Expiration Date Distinct Identification Code MRI Safety Implantable Status Assigning Authority Unknown [id number] Unknown Unknown 03/18/25 Unknown Unknown Active Unknown Patient Care team information Care Team Personnel Name: Sally Rodriguez RN Position: [facility] RN Member Role: Primary Care Nurse Name: Earlene Mclain RN Position: [facility] SN RN Member Role: Primary Care Nurse Name: Michaela Arenas MD Position: [facility] Physician - Primary Care Member Role: PCP Address: [address] [place] [address] Telecom: Name: Jared Negrete RN Position: [facility] RN Member Role: Primary Care Nurse Care Team Related Persons Name: LAMONT WORKMAN Name: TAMIKA WORKMAN Insurance Providers Guarantor name: JUVENAL WORKMAN Health Plan Information #: 1 Payer: MEDICARE B Payer Identifier: Member Number: [id number] Group Number: Subscriber Identifier: NA Relationship to Subscriber: self Coverage Type: NA Coverage Verification Date: NA Telecom: Address: Health Plan Information #: 2 Payer: [employer] SECONDARY ONLY Payer Identifier: NA Member Number: [id number] Group Number: Subscriber Identifier: NA Relationship to Subscriber: self Coverage Type: Medicare Other Coverage Verification Date: Telecom: Address:
--- NOTE | ~2025-06-02 | CT_ITS ---
CLINICAL HISTORY: biliary obstruction, pain, elevated bili CT abdomen and pelvis with contrast Comparison: None provided Findings: There is a partially visualized gyxav-gt-wtakrvmx sized right pleural effusion. There is a small left pleural effusion. There is mild bibasilar atelectasis. There is mild cardiomegaly and small pericardial effusion. There is cholelithiasis. Gallbladder appears otherwise normal. There is no biliary duct dilation. No focal hepatic lesion is seen. The pancreas, spleen, and adrenal glands are unremarkable. There are bilateral nonobstructing renal stones measuring up to 10 mm in the right kidney. There are a few bilateral renal cysts. There is a small amount of ascites. There is diffuse body wall edema. There is edema in the mesentery and retroperitoneal fat. There is diverticulosis in the left hemicolon. There is a moderate amount of stool in the colon. The gastrointestinal tract is otherwise unremarkable. The aorta is normal in diameter. No enlarged lymph nodes are seen. The uterus and ovaries are atrophic as expected. The psoas muscles appear enlarged hwyx-pbwjhno-hxbt-right. There are several small hyperdense foci within both iliopsoas muscles suspicious for foci of contrast extravasation. There is a small left retroperitoneal hematoma posterolateral to the left psoas. There is a small hematoma in the distal left iliopsoas muscle with active extravasation anterior to the left hip. There are few small curvilinear hyperdensities in the distal right iliopsoas possibly also active extravasation. There is no acute fracture or suspicious lytic or sclerotic lesion. There are degenerative changes throughout the lumbar spine. The bones appear demineralized. IMPRESSION: 1. Small hematoma with active extravasation in the distal left iliopsoas anterior to the left hip. There are also possible small foci of active extravasation in the distal right iliopsoas. 2. Enlargement of the psoas muscles bilaterally with several small hyperdense foci suspicious for intramuscular hematomas with foci of contrast extravasation. There is a small retroperitoneal hematoma posterolateral to the left psoas. 3. Small amount of ascites and diffuse body wall and mesenteric edema. 4. Partially visualized npvas-aa-gkjxnked right pleural effusion and small left pleural effusion. 5. Cholelithiasis. 6. Bilateral nonobstructing renal stones. 7. Additional findings as above. This document has been electronically signed by: Juan David Ritchie MD on 06/02/2025 23:01:12
--- NOTE | ~2025-06-02 | XR_ITS ---
CLINICAL HISTORY: trauma 3 views left knee Comparison: None provided Findings: There is no fracture or dislocation. Evaluation for an effusion is limited by obliquity of the lateral view. 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 There appears to be subcutaneous edema. There is arterial calcification. Impression: No acute findings. This document has been electronically signed by: Juan David Ritchie MD on 06/02/2025 21:53:15
--- NOTE | ~2025-06-02 | XR_ITS ---
CLINICAL HISTORY: effusion captured on CT cervical spine 1 view chest x-ray. Comparison: CT/SR - ABDOMEN ABD_PELVIS_IV_CONTRAST (ADULT) - 06/02/25 22:[address]/SR - CT CERVICAL SPINE WO IV CON - 06/02/25 20:42 EST Findings: Hazy opacity in the right lower lung is due to a memyf-hi-fvhqlbha sized layering effusion in correlation with the CTs. The small left pleural effusion seen on the CT of the abdomen and pelvis is not visualized on the AP radiograph. There is mild right basilar atelectasis. There appears to be pulmonary vascular congestion. Enlargement of the cardiac silhouette is due to mild cardiomegaly and small pericardial effusion in correlation with the CT. Pacemaker leads are in the right atrium and right ventricle. IMPRESSION: Findings as above. This document has been electronically signed by: Juan David Ritchie MD on 06/02/2025 22:47:03
--- NOTE | ~2025-06-02 | CT_ITS ---
CLINICAL HISTORY: trauma CT cervical spine without contrast Comparison: None provided Findings: The alignment of the cervical spine is normal. There is no fracture. There is multilevel degenerative disc disease. 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 There is multilevel facet and uncovertebral joint osteoarthritis with associated neuroforaminal stenoses. There is a partially visualized layering right pleural effusion. IMPRESSION: 1. No evidence of cervical spine injury. 2. Cervical spondylosis. 3. Partially visualized right pleural effusion. This document has been electronically signed by: Juan David Ritchie MD on 06/02/2025 21:58:17
--- NOTE | ~2025-06-02 | XR_ITS ---
CLINICAL HISTORY: trauma 5 view, pelvis and left hip Comparison: None provided Findings: There is no fracture or dislocation. Hip joint spaces are preserved. There are degenerative changes in the lower lumbar spine. There is arterial calcification. IMPRESSION: No acute findings. This document has been electronically signed by: Juan David Ritchie MD on 06/02/2025 21:55:24
--- NOTE | ~2025-06-02 | CT_ITS ---
CLINICAL HISTORY: trauma, AMS CT head without contrast Comparison: CT/HI/SR - CT HEAD WITHOUT IV CONTRAST - 12/06/23 12:30 EDT Findings: Streak artifact from dental restorations obscure a portion of the cerebellum and brainstem. There is no acute intracranial hemorrhage. Ventricles are within normal limits in size. No mass effect or midline shift is present. The jackson-white matter differentiation appears normal. There is generalized cerebral atrophy. Hypoattenuation in the periventricular white matter is consistent with chronic small vessel ischemic disease. The visualized portions of the orbits, paranasal sinuses, and mastoids are unremarkable. No fractures are identified. IMPRESSION: No acute intracranial abnormality. This document has been electronically signed by: Juan David Ritchie MD on 06/02/2025 22:01:23
[2025-06-02 18:52] VITALS: BP 150/82; BP 159/77; PULSE 100; PULSE 76; RESP 18; TEMP 36.4; O2SAT 100; O2SAT 97; BMI 28.6
--- NOTE | 2025-06-02 19:37 | PC.NURSE ---
Pts reporting pt c/o suddenly today, also reports pt has had multiple falls just one last wk Pt reporting severe left hip and leg pain Pt changed into gown, purewick placed on pt Due to pain and pt ok with the cutting of pants. Boosted in bed for comfort Plan of care ongoing.
--- NOTE | 2025-06-02 20:41 | PC.NURSE ---
Pt with radiology Plan of care ongoing.
--- NOTE | 2025-06-02 21:01 | ED.GENADULT ---
HPI - General Adult General Chief complaint: General Medical Stated complaint: L Hip pain, unkn origin 03/28, fall x1wk, -thinner Time Seen by Provider: 06/02/25 20:05 Source: family Limitations: other ( dementia) History of Present Illness ED Provider: Martien Marshall PA-C HPI narrative: 85-year-old female with a history of advanced dementia, DM, hypertension, hyperlipidemia, afib status post pacer placement greater than 10 years ago, with recent replacement June of 2024 on Coumadin, iron deficiency anemia who presents after a fall 9 days ago. Per patient's she fell, this is her 1st medical assessment. They do have VNA services to the home that 10 to a chronic wound she has on the right lower extremity. The patient has become unable to ambulate, she seems to be complaining of primarily left hip to distal thigh pain. The patient did strike her head at the time of the fall. The states she seems more distraught since the fall. Related Data Home Medications ?Medication ?Instructions ?Recorded ?Confirmed Lactobacillus acidophilus 500 500 mmu cells PO DAILY 06/03/25 06/03/25 million cell tablet acetaminophen 325 mg tablet 650 mg PO BID 06/03/25 06/03/25 amiodarone 200 mg tablet 200 mg PO DAILY 06/03/25 06/03/25 ascorbic acid (vitamin C) 250 mg 250 mg PO DAILY 06/03/25 06/03/25 tablet (Vitamin C) bumetanide 0.5 mg tablet 0.5 mg PO DAILY 06/03/25 06/03/25 bupropion HCl 300 mg 24 hr tablet, 300 mg PO DAILY 06/03/25 06/03/25 extended release buspirone 5 mg tablet 5 mg PO BID 06/03/25 06/03/25 escitalopram oxalate 5 mg tablet 5 mg PO DAILY 06/03/25 06/03/25 glimepiride 1 mg tablet 1 mg PO DAILY 06/03/25 06/03/25 memantine 21 mg capsule 21 mg PO DAILY 06/03/25 06/03/25 sprinkle,extended release 24hr metformin 1,000 mg tablet 1,000 mg PO DIRECTED 06/03/25 06/03/25 metformin 500 mg tablet 500 mg PO DIRECTED 06/03/25 06/03/25 omega 5-gez-psj-fish oil 1,000 mg 1 cap PO BID 06/03/25 06/03/25 (120 mg-180 mg) capsule (Fish Oil) simvastatin 10 mg tablet 10 mg PO BEDTIME 06/03/25 06/03/25 Allergies Allergy/AdvReac Type Severity Reaction Status Date / Time Latex, Natural Rubber Allergy Unknown Verified 06/02/25 18:56 Iodinated Contrast Media AdvReac Abdominal Verified 06/02/25 18:56 (Contrast Dye) Pain Review of Systems Review of Systems: Unable to of obtain secondary to advanced dementia Yes all other systems are reviewed and are negative [facility] Past Medical History Attestation statement: The following information was validated with the patient. Medical History Diabetes Afib Social History Social History Patient Tobacco Use Status: Never used Tobacco Smoked in Last 30 Days: No Use of substances other than those prescribed or required for medical reasons: No Advance Directives: Yes Advance Directives Information Provided: No Advance Directives on File: No Physical Exam ED Vital Signs: Vital Signs - 24 hr 06/02/25 18:52 06/02/25 21:39 06/02/25 22:27 Temperature 97.6 F 97.8 F Pulse Rate 76 69 Respiratory Rate 18 20 18 Blood Pressure 159/77 H 102/53 L Pulse Oximetry 97 92 Oxygen Delivery Method Room Air Room Air 06/03/25 00:01 06/03/25 04:57 Temperature 98.1 F Pulse Rate 70 60 Respiratory Rate 18 12 Blood Pressure 119/64 117/65 Pulse Oximetry 97 97 Oxygen Delivery Method Room Air BMI result Body Mass Index 28.6 Const Other: awake Orientation/consciousness: oriented to person Resp Effort & Inspection: normal respiratory effort Cardio Other: pitting edema noted GI Other: ventral hernia noted on exam, abdomen is soft, nontender no guarding Back/Spine/Pelvis Other: no ecchymosis over the back or the left flank Skin Other: warm dry no rash Neuro General: oriented to person, no focal motor deficits and CN's II-XI intact bilaterally Extrem Other: old ecchymosis noted along lateral aspect of distal thigh in relation to the knee, she is unwilling to flex or extend either knee, I can do so actively. There was no bruising in relation to the left hip or flank region. she is also not having palpable pain over the left hip. Psych Other: cooperative, Course Reevaluation(s) Reevaluation #1: initial imaging and labs ordered are returning, they are capturing a partial right pleural effusion on the cervical spine imaging, we will obtain a dedicated chest x-ray., and the patient has a an elevation in her total bilirubin, I will fractionate. The patient's denies that she has been actively vomiting or complaining of belly pain, although she has had poor oral intake. Her abdominal exam is benign, she is not a reliable historian, I am scanning her abdomen and pelvis as well........ Reevaluation #2: evidence of active bleeding left iliopsoas, she also has a small left retroperitoneal hematoma in relation to the iliopsoas, she also has bleeding on the right, I am assuming she will likely be a trauma consult, I will reach out to Dr. Gregory who is the surgeon on-call. Reevaluation #3: Time: 02:38 Date: 06/03/25 Provider: BRYAN Park Patient in physician observation for case management needs. No acute events reported overnight.? No current issues or complaints. VS stable. Patient is pending placement at facility/pending PT/CM eval. Will continue to monitor. Time: 02:38 Consultations Consultation #1: Per Dr. Gregory..... he advises that I reach out to vascular Dr. Calvillo Time: 23:30 Consultation #2: per Dr. Calvillo ..... He reviewed the imaging and the case, he feels there was no active extravasation, that it is an over-read on radiology's part. He thinks it does not make sense given her fall occurred 9 days ago. He does not feel she requires hospital admission. He verbalized that I should be relayed this information to my attending, which of course I have had discussion with them. My attending and I have decided to reverse the patient, she will be held for PT case management, I am going to repeat her H&H at around 5:00 a.m., if anything changes, I will admit her and reach back out to Dr. Calvillo...we are also reversing her warfarin, givivng kcentra and vitK Time: 23:45 Consultation #3: per Dr. Calvillo..... She will be transferred given this is trauma in origin, as we expected earlier on in the evening.... Reaching out to [facility] trauma Per Dr. Vegas [facility] trauma...... I actually spoke with Dr. Pritchett from the ED, the patient will be an ED to ED transfer with trauma consulting upon arrival Time: 05:01 Medications Administered Discontinued Medications Generic Name Dose Route Start Last Admin Trade Name Freq PRN Reason Stop Dose Admin Acetaminophen 1,000 mg in 100 mls @ 400 mls/hr 06/02/25 21:34 06/02/25 22:00 Ofirmev IV 06/02/25 21:48 Infused ONCE ONE Infusion Magnesium Sulfate 2 gm in 50 mls @ 150 mls/hr 06/02/25 21:35 06/02/25 23:11 Magnesium Sulfate/H2o IV 06/02/25 21:54 Infused ONCE ONE Infusion Prothrombin Complex Concent ( 60 mls @ 480 mls/hr 06/03/25 01:09 06/03/25 02:06 Human) 1,500 unit/ IV IV 06/03/25 01:16 Infused Miscellaneous Supplies .Q8M ONE Infusion Phytonadione 10 mg/ Sodium 51 mls @ 51 mls/hr 06/03/25 01:09 06/03/25 02:14 Chloride IV 06/03/25 02:08 51 mls/hr ONCE ONE Administration Iohexol 85 ml 06/02/25 22:06 06/02/25 22:19 Iohexol 350 Mg/Ml 100 Ml Infus..Btl IV 06/02/25 22:07 85 ml ONCE ONE Administration Morphine Sulfate 4 mg 06/02/25 21:34 06/02/25 21:39 Morphine Sulfate 4 Mg/Ml Cartridge IVPUSH 06/02/25 21:35 4 mg ONCE ONE Administration Protocol Morphine Sulfate 4 mg 06/02/25 23:39 06/03/25 00:05 Morphine Sulfate 4 Mg/Ml Cartridge IVPUSH 06/02/25 23:40 4 mg ONCE ONE Administration Protocol Medical Decision Making Medical Decision Making MDM Narrative: 85-year-old female with a history of advanced dementia, DM, hypertension, hyperlipidemia, afib status post pacer placement greater than 10 years ago, with recent replacement June of 2024 on Coumadin, iron deficiency anemia who presents after a fall 9 days ago. Per patient's she fell, this is her 1st medical assessment. They do have VNA services to the home that 10 to a chronic wound she has on the right lower extremity. The patient has become unable to ambulate, she seems to be complaining of primarily left hip to distal thigh pain. The patient did strike her head at the time of the fall. The states she seems more distraught since the fall. problem: Advanced dementia, diabetes, anticoagulation History: Per patient's I have considered the following differential diagnoses: Fracture, dislocation, intracranial hemorrhage, cervical spine injury, contusion Plan: The patient is anticoagulated never had imaging, I am most concerned for potential hip or femoral fracture given distribution of her discomfort. We will be scanning her head and neck, hip pelvis and knee. Giving Tylenol and morphine for her pain. If there was no acute injury, she likely we will be held for PT case management given inability to ambulate secondary to her pain. We will screen basic labs in the event that she did sustain an acute injury and requires further intervention. I have independently reviewed the following tests: Labs: No leukocytosis, trending anemia but is stable, we will obtain a guaiac, H&H 10.2 and 30.2 January of this year, it is now 9.5 and 29.5, new elevation in bilirubin T bili 1.7 we will fractionate, direct bili 0.9, magnesium subtly low at 1.5, alkaline phosphatase 176 no additional electrolyte abnormalities.... INR 3.0........... repeat H&H 8.5 and 26.4, X-ray hip pelvis:Findings: There is no fracture or dislocation. Hip joint spaces are preserved. There are degenerative changes in the lower lumbar spine. There is arterial calcification. IMPRESSION: No acute findings. X-ray left knee:Findings: There is no fracture or dislocation. Evaluation for an effusion is limited by obliquity of the lateral view. 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 There appears to be subcutaneous edema. There is arterial calcification. Impression: No acute findings. CT brain:Findings: Streak artifact from dental restorations obscure a portion of the cerebellum and brainstem. There is no acute intracranial hemorrhage. Ventricles are within normal limits in size. No mass effect or midline shift is present. The jackson-white matter differentiation appears normal. There is generalized cerebral atrophy. Hypoattenuation in the periventricular white matter is consistent with chronic small vessel ischemic disease. The visualized portions of the orbits, paranasal sinuses, and mastoids are unremarkable. No fractures are identified. IMPRESSION: No acute intracranial abnormality. CT cervical spine:IMPRESSION: 1. No evidence of cervical spine injury. 2. Cervical spondylosis. 3. Partially visualized right pleural effusion. Adding dedicated chest x-ray chest x-ray:Findings: Hazy opacity in the right lower lung is due to a [id number]-zh-[id number] sized layering effusion in correlation with the CTs. The small left pleural effusion seen on the CT of the abdomen and pelvis is not visualized on the AP radiograph. There is mild right basilar atelectasis. There appears to be pulmonary vascular congestion. Enlargement of the cardiac silhouette is due to mild cardiomegaly and small pericardial effusion in correlation with the CT. Pacemaker leads are in the right atrium and right ventricle. IMPRESSION: Findings as above. CT abdomen and pelvis:IMPRESSION: 1. Small hematoma with active extravasation in the distal left iliopsoas anterior to the left hip. There are also possible small foci of active extravasation in the distal right iliopsoas. 2. Enlargement of the psoas muscles bilaterally with several small hyperdense foci suspicious for intramuscular hematomas with foci of contrast extravasation. There is a small retroperitoneal hematoma posterolateral to the left psoas. 3. Small amount of ascites and diffuse body wall and mesenteric edema. 4. Partially visualized putfm-nu-nusmplsh right pleural effusion and small left pleural effusion. 5. Cholelithiasis. 6. Bilateral nonobstructing renal stones. 7. Additional findings as above....... Adding INR reaching out to surgery Differential Diagnosis Differential Diagnoses: The differential diagnosis associated with the presentation includes see MDM Admission/Observation Consideration of admission/observation: Escalation of care including admission/observation considered likely transfer for trauma consult Consult Healthcare Provider Management of the patient was discussed with: [employer] Lab Data [facility] Lab Attestation statement: I reviewed the patient's lab results. 06/03/25 04:46 06/02/25 21:12 Labs: Lab Results 06/02/25 06/02/25 06/02/25 Range/Units 21:12 21:20 23:09 WBC 6.2 (4.8-10.8) X10*3/uL RBC 3.04 L (4.20-5.50) X10*6/uL Hgb 9.5 L (12.0-16.0) g/dl Hct 29.5 L (37.0-47.0) % MCV 97.0 (80.0-98.0) fL MCH 31.3 (27.0-33.0) pg MCHC 32.2 (31.0-35.0) g/dl RDW 15.2 (11.0-16.0) % Plt Count 146 L (160-400) X10*3/uL MPV 9.5 (9.4-12.3) fL Immature Gran % (Auto) 0.5 H (0.0-0.4) % Neut % (Auto) 84.8 H (45-73) % Lymph % (Auto) 7.1 L (20-40) % [place] % (Auto) 6.8 (2-11) % Eos % (Auto) 0.3 (0-4) % Baso % (Auto) 0.5 (0-2) % Lymph # (Auto) 0.4 L (1.2-4.9) X10*3/uL [place] # (Auto) 0.4 (0.1-1.2) X10*3/uL Eos # (Auto) 0.0 (0.0-0.4) X10*3/uL Baso # (Auto) 0.0 (0.0-0.2) X10*3/uL Abs Immat Gran (auto) 0.03 (0.00-0.03) X10*3/uL Absolute Neuts (auto) 5.3 (2.0-8.3) x10*3/uL Absolute Nucleated RBC 0.000 (0.0-0.012) X10*3/uL Nucleated RBC % (auto) 0.0 (0.0-0.2) /100WBC PT (11.2-13.5) SEC INR (0.9-1.1) Sodium 141 (135-145) mmol/L Potassium 4.1 (3.3-5.1) mmol/L Chloride 104 (96-108) mmol/L Carbon Dioxide 24 (22-29) mmol/L Anion Gap 17 (12-20) BUN 34 H (9-16) mg/dL Creatinine 0.91 (0.5-1.4) mg/dL Estim Creat Clear Calc 36.5 Estimated GFR 59 Random Glucose 171 H (60-115) mg/dL Calcium 9.1 (8.4-10.2) mg/dL Magnesium 1.5 L (1.6-2.6) mg/dL Total Bilirubin 1.7 H (0.0-1.0) mg/dL Direct Bilirubin 0.9 H (0.0-0.5) mg/dL AST 30 (5-31) U/L ALT 12 (0-31) U/L Alkaline Phosphatase 176 H (39-117) U/L Total Protein 6.5 (6.5-8.0) g/dL Albumin 4.2 (3.5-5.0) g/dL Urine Color Yellow Urine Appearance Clear Urine pH 7.0 (5.0-9.0) Ur Specific Isabella 1.015 (1.005-1.025) Urine Protein 30 (1+) H (Neg-Trace) mg/dL Urine Glucose (UA) Negative (Negative) mg/dL Urine Ketones Trace (Negative) mg/dL Urine Blood Small (1+) H (Negative) Urine Nitrite Negative (Negative) Ur Leukocyte Esterase Trace H (Negative) Urine RBC 11-20 H (0-2) /HPF Urine WBC 0-5 (0-5) /HPF Ur Squamous Epith Cells 0-2 (0-2) /HPF Urine Bacteria None Seen (None Seen) Hyaline Casts 0-2 (0-2) /LPF Stool Occult Blood NEGATIVE (NEGATIVE) 06/02/25 06/03/25 Range/Units 23:43 04:46 WBC (4.8-10.8) X10*3/uL RBC (4.20-5.50) X10*6/uL Hgb 8.5 L (12.0-16.0) g/dl Hct 26.4 L (37.0-47.0) % MCV (80.0-98.0) fL MCH (27.0-33.0) pg MCHC (31.0-35.0) g/dl RDW (11.0-16.0) % Plt Count (160-400) X10*3/uL MPV (9.4-12.3) fL Immature Gran % (Auto) (0.0-0.4) % Neut % (Auto) (45-73) % Lymph % (Auto) (20-40) % [place] % (Auto) (2-11) % Eos % (Auto) (0-4) % Baso % (Auto) (0-2) % Lymph # (Auto) (1.2-4.9) X10*3/uL [place] # (Auto) (0.1-1.2) X10*3/uL Eos # (Auto) (0.0-0.4) X10*3/uL Baso # (Auto) (0.0-0.2) X10*3/uL Abs Immat Gran (auto) (0.00-0.03) X10*3/uL Absolute Neuts (auto) (2.0-8.3) x10*3/uL Absolute Nucleated RBC (0.0-0.012) X10*3/uL Nucleated RBC % (auto) (0.0-0.2) /100WBC PT 36.0 H (11.2-13.5) SEC INR 3.0 H (0.9-1.1) Sodium (135-145) mmol/L Potassium (3.3-5.1) mmol/L Chloride (96-108) mmol/L Carbon Dioxide (22-29) mmol/L Anion Gap (12-20) BUN (9-16) mg/dL Creatinine (0.5-1.4) mg/dL Estim Creat Clear Calc Estimated GFR Random Glucose (60-115) mg/dL Calcium (8.4-10.2) mg/dL Magnesium (1.6-2.6) mg/dL Total Bilirubin (0.0-1.0) mg/dL Direct Bilirubin (0.0-0.5) mg/dL AST (5-31) U/L ALT (0-31) U/L Alkaline Phosphatase (39-117) U/L Total Protein (6.5-8.0) g/dL Albumin (3.5-5.0) g/dL Urine Color Urine Appearance Urine pH (5.0-9.0) Ur Specific Isabella (1.005-1.025) Urine Protein (Neg-Trace) mg/dL Urine Glucose (UA) (Negative) mg/dL Urine Ketones (Negative) mg/dL Urine Blood (Negative) Urine Nitrite (Negative) Ur Leukocyte Esterase (Negative) Urine RBC (0-2) /HPF Urine WBC (0-5) /HPF Ur Squamous Epith Cells (0-2) /HPF Urine Bacteria (None Seen) Hyaline Casts (0-2) /LPF Stool Occult Blood (NEGATIVE) Radiology Impression Discussion of test interpretation with radiology: I have reviewed the radiologist's reading. Critical Care Time Critical Care Time Critical Care Time: Yes Total Critical Care Time: 45 Attestation: I Martine Marshall PA-C have personally performed 45 minutes of critical care time not including lines and procedures; concern for active extravasation need to reverse anticoagulation, hypomagnesemia need for IV magnesium repletion, consults to surgery and vascular surgery Discharge Plan Discharge Clinical Impression: Hematoma of left iliopsoas muscle, Hematoma of right iliopsoas muscle, Traumatic retroperitoneal hematoma, Anemia Patient Disposition: er [facility] Hospital Transfer Details: Need for trauma consult, and advanced level of care Prescriptions: No Action buspirone 5 mg Tablet 5 mg PO BID metformin 500 mg Tablet 500 mg PO DIRECTED Rx Instructions: daily with breakfast acetaminophen 325 mg Tablet 650 mg PO BID amiodarone 200 mg Tablet 200 mg PO DAILY simvastatin 10 mg Tablet 10 mg PO BEDTIME glimepiride 1 mg Tablet 1 mg PO DAILY ascorbic acid (vitamin C) [Vitamin C] 250 mg Tablet 250 mg PO DAILY metformin 1,000 mg Tablet 1,000 mg PO DIRECTED Rx Instructions: daily with dinner bumetanide 0.5 mg Tablet 0.5 mg PO DAILY bupropion HCl 300 mg Tablet Extended Release 24 Hr 300 mg PO DAILY escitalopram oxalate 5 mg Tablet 5 mg PO DAILY Lactobacillus acidophilus [Acidophilus] 500 million cell Tablet 500 mmu cells PO DAILY omega 2-wkb-bye-fish oil [Fish Oil] 1,000 (120-180) mg Capsule 1 cap PO BID memantine 21 mg Capsule,Sprinkle,Er 24hr 21 mg PO DAILY Referrals: Michaela Arenas MD [Primary Care Provider, Internal Medicine] Print Language: Iranian
[2025-06-02 21:18] LABS: Hematocrit 29.5 % (37.0-47.0); Hemoglobin 9.5 g/dl (12.0-16.0); Imm Gran Abs Auto 0.03 X10*3/uL (0.00-0.03); Imm Gran Pct Auto 0.5 % (0.0-0.4); Lymphocytes Absolute Auto 0.4 X10*3/uL (1.2-4.9); MANUAL DIFF FLAG NO; Mean Corpuscular HGB Conc 32.2 g/dl (31.0-35.0); Mean Corpuscular Hemoglobin 31.3 pg (27.0-33.0); Mean Corpuscular Volume 97.0 fL (80.0-98.0); NRBC Abs Auto 0.000 X10*3/uL (0.0-0.012); NRBC Pct Auto 0.0 /100WBC (0.0-0.2); Platelet Count 146 X10*3/uL (160-400); Red Blood Count 3.04 X10*6/uL (4.20-5.50); White Blood Count 6.2 X10*3/uL (4.8-10.8)
--- NOTE | 2025-06-02 21:22 | PC.NURSE ---
Pt back from radiology Pt straight cath, UA sent. Dieter placed on pt Plan of care ongoing.
[2025-06-02 21:29] LABS: Appearance Urine Clear; Glucose Urine UA Negative (Negative); PH 7.0 (5.0-9.0); Specific Gravity - Urine 1.015 (1.005-1.025); UMIC TRIGGER UACC YES
[2025-06-02 21:32] LABS: Alanine Aminotransferase 12 U/L (0-31); Albumin Level 4.2 g/dL (3.5-5.0); Alkaline Phosphatase 176 U/L (39-117); Anion Gap 17 (12-20); Aspartate Amino Transferase 30 U/L (5-31); Blood Urea Nitrogen 34 mg/dL (9-16); Calcium 9.1 mg/dL (8.4-10.2); Carbon Dioxide 24 mmol/L (22-29); Chloride 104 mmol/L (96-108); Creatinine Clr Calc Pharmacy 36.5; Estimated Glomerular Filt Rate 59; Magnesium 1.5 mg/dL (1.6-2.6); Potassium 4.1 mmol/L (3.3-5.1); Sodium 141 mmol/L (135-145); Total Protein 6.5 g/dL (6.5-8.0)
[2025-06-02 21:39] VITALS: RESP 20
[2025-06-02] MEDS: Magnesium Sulfate/H2O 2 GM/50 ML PIGGYBACK IV (21:44)
--- NOTE | 2025-06-02 21:46 | PC.NURSE ---
Pt medicated per aug Pt with radiology Plan of care ongoing
[2025-06-02] MEDS: iohexoL 350 MG/ML 100 ML INFUS..BTL 85 ML IV (22:19)
[2025-06-02 22:27] VITALS: BP 102/53; PULSE 69; RESP 18; TEMP 36.6; O2SAT 92
--- OUTSIDE RECORDS SUMMARY | 2025-06-02 22:54 | XMS_ITS | Patient Health Record ---
[facility] Organization [facility] Address [address] [place] [address] Care Team Providers Care Programmer Analyst Consultant Name Role Phone Michaela Arenas Primary Care Provider Lou Mccracken Unavailable [phone] Allergies Allergen (clinical drug ingredient) Drug/Non Drug Allergy documented on EMR Reaction Allergy Type Onset Date Status amoxicillin Amoxicillin Unknown Drug Allergy Act alex aspirin Aspirin Unknown Drug Allergy Active Adhesive Unknown Allergy Active Iodine Unknown Drug Allergy Active Results Component Value Reference Range Notes HEMOGLOBIN A1C (GLYCOHEMOGLO BIN) Reviewed date:11/21/2024 02:51:06 PM Interpretation: Performing Lab: Notes/Report: HEMOGLOBIN A1C % (HH) 7.0 Reason For Referral No Information Medications Medication SIG (Take, Route, Frequency, Duration) Notes Start Date End Date Status Bumetanide Active Furosemide 40 MG 1 tablet Orally Once a day; Duration: 30 day(s) Active Nitrofurantoin Activ e Warfarin Sodium 7.5 MG 1 tablet Orally Once a day; Duration: 30 day(s) Active dilTIAZem HCl 120 MG as directed Orally Not-Taking Glimepiride 4 MG 1/2 tablet with breakfast or the first main meal of the day Orally Once a day Active metFORMIN HCl 500 MG 1 tablet with a meal Orally twice a day Active Sotalol HCl 100mg twice daily Active Melatonin 5 MG 1 tablet in the evening Orally Once a day; Duration: 30 day(s) Active Simvastatin 10 MG Orally Once a day Active Super B Complex Acti ve Memory Maikel alhzeimers med pt unsure of name Active Fish Oil 2 tab Once a day Act alex Vitamin D Not-Taking Losartan Potassium 25 MG 1 tablet Orally Once a day; Duration: 30 day(s) Active Omeprazole 40 MG 1 capsule 30 minutes before morning meal Orally Once a day; Duration: 30 day(s) Not-Taking Immunizations Vaccine Route Administration Date Status Comme nts Influenza Unknown 02/18/2019 Administered Influenza Unknown 02/18/2020 Administered Influenza Unknown 03/19/2021 Administered Influenza Unknown 03/20/2023 Administered Influenza Unknown 02/18/2024 Administered Influenza Unknown 02/17/2025 Administered COVID-19 Pfizer BioNTech Vaccine Unknown 04/13/2021 Administered First Dose: 07/08/2020 Second Dose: 07/29/2020 Social History Tobacco Use: Social History Observation Description Date Details (start date - stop date) Never Smoker NA - NA Tobacco use other than smoking: Question Answer Notes Are you an other tobacco user? No Tobacco Control (Standard) Question Answer Notes Tobacco use: Nonsmoker Additional Findings: Tobacco non-user Current no nsmoker AUDIT-C (Standard) Question Answer Notes Did you have a drink containing alcohol in the p ast year? No Points 0 Interpretation Negative Problems Problem Type SNOMED Code ICD Code Onset Dates Problem Status W/U Status Risk Notes Problem Type II diabetes mellitus without complication (899491894) Type 2 diabetes mellitus without complication, without long-term current use of insulin (E11.9) Active confirmed Vital Signs Heart Rate 69 /min 06/07/2024 Blood pressure diastolic 76 mm Hg 04/09/2025 Height 2bz66rq in 04/09/2025 Blood pressure systolic 130 mm Hg 04/09/2025 Weight 124 lbs 04/09/2025 BMI 25.04 kg/m2 04/09/2025 Encounters Encounter Location Date Provider Diagnosis [facility] [address] 06/07/2024 Lou Perica Tinea unguium B35.1 ; Pain in left toe(s) M79.675 ; Pain in right toe(s) M79.674 and Type 2 diabetes mellitus without complication, without long-term current use of insulin E11.9 [facility] [address] 08/21/2024 Lou Perica Tinea unguium B35.1 ; Ingrown nail L60.0 ; Pain in left toe(s) M79.675 ; Pain in right toe(s) M79.674 and Type 2 diabetes mellitus without complication, without long-term current use of insulin E11.[address] [address] 11/08/2024 Lou Perica Tinea unguium B35.1 ; Pain in left toe(s) M79.675 ; Pain in right toe(s) M79.674 and Type 2 diabetes mellitus without complication, without long-term current use of insulin E11.[address] [address] 01/24/2025 Lou Perica Tinea unguium B35.1 ; Pain in left toe(s) M79.675 ; Pain in right toe(s) M79.674 and Type 2 diabetes mellitus without complication, without long-term current use of insulin E11.[address] [address] 04/09/2025 Lou Perica Tinea unguium B35.1 ; Pain in left toe(s) M79.675 ; Pain in right toe(s) M79.674 and Type 2 diabetes mellitus without complication, without long-term current use of insulin E11.[address] [address] 11/08/2024 Lou Perica Assessments Encounter Date Diagnosis (ICD Code) Assessment Notes Treatment Notes Treatment Clinical Notes Section Notes 06/07/2024 Tinea unguium (ICD-10 - B35.1) 08/21/2024 Tinea unguium (ICD-10 - B35.1) 08/21/2024 Ingrown nail (ICD-10 - L60.0) 11/08/2024 Tinea unguium (ICD-10 - B35.1) 11/08/2024 Pain in left toe(s) (ICD-10 - M79.675) 01/24/2025 Tinea unguium (ICD-10 - B35.1) 04/09/2025 Tinea unguium (ICD-10 - B35.1) 01/24/2025 Pain in left toe(s) (ICD-10 - M79.675) 04/09/2025 Pain in left toe(s) (ICD-10 - M79.675) 11/08/2024 Pain in right toe(s) (ICD-10 - M79.674) 08/21/2024 Pain in left toe(s) (ICD-10 - M79.675) 06/07/2024 Pain in left toe(s) (ICD-10 - M79.675) 06/07/2024 Pain in right toe(s) (ICD-10 - M79.674) 08/21/2024 Pain in right toe(s) (ICD-10 - M79.674) 04/09/2025 Pain in right toe(s) (ICD-10 - M79.674) 01/24/2025 Pain in right toe(s) (ICD-10 - M79.674) 11/08/2024 Type 2 diabetes mellitus without complication, without long-term current use of insulin (ICD-10 - E11.9) 01/24/2025 Type 2 diabetes mellitus without complication, without long-term current use of insulin (ICD-10 - E11.9) 04/09/2025 Type 2 diabetes mellitus without complication, without long-term current use of insulin (ICD-10 - E11.9) 08/21/2024 Type 2 diabetes mellitus without complication, without long-term current use of insulin (ICD-10 - E11.9) 06/07/2024 Type 2 diabetes mellitus without complication, without long-term current use of insulin (ICD-10 - E11.9) Plan Of Treatment Next Appt Details Provider Name:Lou covarrubias, 06/17/2025 01:30:00 PM, [address] [place], [address], Insurance Providers Payer Name Payer Address Payer Phone Subscriber Number Group Number Insured Name Patient Relationship to Insured Coverage Start Date Coverage End Date Medicare [employer] [address] [place] [address] [id number] Jessica Hubbard Self - patient is the insured [employer] [address] [place] [address] [id number] Jessica Hubbard Self - patient is the insured Medical (General) History Medical History History ICD Code Angina Anxiety Back,Hip,and Knee pain Cataracts Diabetic Heart disease High blood pressure Reflux ( GERD) Scarlet fever Stroke Warts Measles Chicken pox Bone implants/screws Transfusions Pacemaker dementia Alzheimers disease Surgical History Surgery Date(Month/Year) section 4 cardiac pacemeker 06/2020 Pacemaker replacement 03/25/24 Hospitalization History Reason Date(Month/Year) fell hit head 04/12 [facility]- heart- pacemaker needed to be check ed out
--- OUTSIDE RECORDS SUMMARY | 2025-06-02 22:55 | XMS_ITS | Patient Health Record ---
Author Organization - [facility] Practice Address [address] [place] [address] Care Team Providers Care Continuous Improvement Consultant Name Role Phone Danin Rodgers Unavailable [phone] JUSTO WATSON Unavailable [phone] BLADE LOPEZ Unavailable [phone] Ni Tanner Unavailable [phone] Allergies No Known Allergies Reason For Referral No Information Medications Medication SIG (Take, Route, Frequency, Duration) Notes Start Date End Date Status Memantine HCl ER 21 MG 1 capsule Orally Once a day Dementia Active Fish Oil 1000 MG 1 capsule Orally twice per day HLD Active Vitamin C 250 MG 1 tablet Orally Once a day supplement Active buPROPion HCl ER (XL) 300 MG 1 tablet in the morning Orally Once a day; Duration: 28 days Anxiety Active busPIRone HCl 5 MG 1 tablet Orally Twice a day; Duration: 28 days Anxiety Active Warfarin Sodium 7.5 MG 1 tablet Orally Once a day; Duration: [address] A. Fib. Active Bumetanide 1 MG Half Orally Once a day on Monday, Monday and Monday; Duration: 28 days HTN Active MiraLax 17 GM/SCOOP 1 scoop mixed with 8 ounces of fluid Orally Once a day As needed Constipation Active Simvastatin 10 MG 1 tablet in the evening Orally Once a day; Duration: 28 days HLD Active Vitamin D3 25 MCG (1000 UT) 1 tablet Orally Once a day on Mondays and Supplement Active Rivastigmine 9.5 MG/24HR APPLY 1 PATCH TOPICALLY DAILY Transdermal Once a day; Duration: 90 days Dementia Active Glimepiride 1 MG 1 tablet with breakfast or the first main meal of the day Orally Once a day; Duration: 28 days DM Active metFORMIN HCl 1000 MG 1 tablet with a meal Orally Once a day; Duration: 28 days DM Active Nitroglycerin 0.4 MG 1 tablet under the tongue and allow to dissolve as needed. Take every 5 minutes up to 3 times if chest pain persists Sublingual Three times a day; Duration: 30 days As needed chest pain Active Amiodarone HCl 200 MG 1 tablet Orally Once a day; Duration: 13 days Atrial Fibrillation Active Social History Tobacco Use: Social History Observation Description Date Details (start date - stop date) Never Smoker NA - NA Tobacco Control (Standard) Question Answer Notes Tobacco use: Nonsmoker AUDIT-C (Standard) Question Answer Notes Did you have a drink containing alcohol in the p ast year? 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 behavioral disturbance, psychotic disturbance, mood disturbance, or anxiety, unspecified dementia type (F03.A0) Active confirmed Problem History of cerebrovascular accident without residual deficits (202062052) History of CVA (cerebrovascular accident) (Z86.73) Active confirmed Problem Atrial fibrillation (41806322) Atrial fibrillation, unspecified type (I48.91) Active confirmed Problem Anxiety (77005558) Anxiety (F41.9) Active confi rmed Problem History of fall (865691257) History of fall (Z91.81) Active confirmed Problem Type II diabetes mellitus without complication (300167806) Type 2 diabetes mellitus without complication, without long-term current use of insulin (E11.9) Active confirmed Problem Essential hypertension (30570854) Essential hypertension (I10) Active confirmed Vital Signs Height-cm 152.4 cm 09/27/2024 BP = checks daily, stable results, SBPs 120-130's. BS = checks daily, today 186, yesterday 119, usually less than 200. Last A1C unknown. Weight-kg 54.43 kg 09/27/2024 BP = checks daily, stable results, SBPs 120-130's. BS = checks daily, today 186, yesterday 119, usually less than 200. Last A1C unknown. Height 5'0 in 09/27/2024 BP = checks daily, stable results, SBPs 120-130's. BS = checks daily, today 186, yesterday 119, usually less than 200. Last A1C unknown. Weight 120 lbs 09/27/2024 BP = checks daily, stable results, SBPs 120-130's. BS = checks daily, today 186, yesterday 119, usually less than 200. Last A1C unknown. BMI 23.43 kg/m2 09/27/2024 BP = checks daily, stable results, SBPs 120-130's. BS = checks daily, today 186, yesterday 119, usually less than 200. Last A1C unknown. Encounters Encounter Location Date Provider Diagnosis - [address] [address] 09/27/2024 BLADE LOPEZ Essential hypertensi on I10 ; Atrial fibrillation, unspecified type I48.91 ; Cardiac pacemaker Z95.0 ; Type 2 diabetes mellitus without complication, without long-term current use of insulin E11.9 ; Mild dementia without behavioral disturbance, psychotic disturbance, mood disturbance, or anxiety, unspecified dementia type F03.A0 ; History of CVA (cerebrovascular accident) Z86.73 ; Dyslipidemia E78.5 ; Anxiety F41.9 ; History of fall Z91.81 ; Mixed stress and urge urinary incontinence N39.46 and Primary osteoarthritis involving multiple joints M15.0 - [address] [address] 10/01/2024 BLADE LOPEZ - [address] [address] 01/01/2025 JUSTO WATSON [address] [address] 02/18/2025 JUSTO WATSON [facility] [address] [address] 10/01/2024 Ni Tanner Assessments Encounter Date Diagnosis (ICD Code) Assessment Notes Treatment Notes Treatment Clinical Notes Section Notes 09/27/2024 Essential hypertension (ICD-10 - I10) Patient condition is stable. Member reports checking her blood pressure daily with stable results. Advised member to avoid salty foods and dark sodas to prevent blood pressure elevations. Patient will continue current medications as listed above in verified medication list and continue care with prescribing provider. RN please inquire about BP RPM at next monthly call. Member prognosis related to the multiple diagnoses is good. 09/27/2024 Atrial fibrillation, unspecified type (ICD-10 - I48.91) Patient condition is stable. Member has pacemaker in place since about 11 years ago with recent battery replacement a few weeks ago. Reports pending evaluation with Specialist due to recent onset of pacemaker frequent firing episodes but denies any serious malfunction. Patient will continue current medications as listed above in verified medication list and continue care with prescribing provider Member prognosis related to the multiple diagnoses is good. 09/27/2024 Cardiac pacemaker (ICD-10 - Z95.0) Patient condition is stable. Member has pacemaker in place since about 11 years ago with recent battery replacement a few weeks ago. Reports pending evaluation with Specialist due to recent onset of pacemaker frequent firing episodes but denies any serious malfunction. Patient will continue current medications as listed above in verified medication list and continue care with prescribing provider Member prognosis related to the multiple diagnoses is good. 09/27/2024 Type 2 diabetes mellitus without complication, without long-term current use of insulin (ICD-10 - E11.9) Patient condition is stable. Member reports checking her sugars daily with stable results, most below 200 on a daily basis. Does not know her last A1C result. Advised member to continue monitoring and avoid carbohydrate foods like: Bread, potatoes, pasta and rice; which can increase sugars significantly. Patient will continue current medications as listed above in verified medication list and continue care with prescribing provider Member prognosis related to the multiple diagnoses is good. 09/27/2024 Mild dementia without behavioral disturbance, psychotic disturbance, mood disturbance, or anxiety, unspecified dementia type (ICD-10 - F03.A0) Patient condition is stable. Member is able to have a normal converstation and answer questions normally at this time. Reports occassional forgetfulness. Advised member and to maintain same daily routines and avoid new places or events to prevent severe confusion. Patient will continue current medications as listed above in verified medication list and continue care with prescribing provider Member prognosis related to the multiple diagnoses is good. 09/27/2024 History of CVA (cerebrovascular accident) (ICD-10 - Z86.73) Member prognosis related to the multiple diagnoses is good. 09/27/2024 Dyslipidemia (ICD-10 - E78.5) Patient condition is stable. Recommended to avoid fatty/processed foods in daily diet. Patient will continue current medications as listed above in verified medication list and continue care with prescribing provider Member prognosis related to the multiple diagnoses is good. 09/27/2024 Anxiety (ICD-10 - F41.9) Patient condition is stable on current regimen. Advised member on ways to reduce anxiety episodes using breathing techniques or other distractions. Patient will continue current medications as listed above in verified medication list and continue care with prescribing provider Member prognosis related to the multiple diagnoses is good. 09/27/2024 History of fall (ICD-10 - Z91.81) Fall risk precautions reviewed: Including wearing closed toe shoes with supportive shrimp peeling machine tender, removing rugs from walkways in home, turning lights on at night when waking to use bathroom, use of assistive devices. Member prognosis related to the multiple diagnoses is good. 09/27/2024 Mixed stress and urge urinary incontinence (ICD-10 - N39.46) Patient condition is stable. Patient will continue current medications as listed above in verified medication list and continue care with prescribing provider Member prognosis related to the multiple diagnoses is good. 09/27/2024 Primary osteoarthritis involving multiple joints (ICD-10 - M15.0) Patient condition is stable. Recommended alternating warm and cool compresses to affected joints as needed for pain. Patient will continue current medications as listed above in verified medication list and continue care with prescribing provider Member prognosis related to the multiple diagnoses is good. 01/01/2025 - Educated on 2 objectives based on the GUEST SERVICE AIDE/RN Care Plan - Caregiver/Membe r voiced understanding for the call and the support. 09/01 line reinforced. Plan Of Treatment No Information Insurance Providers Payer Name Payer Address Payer Phone Subscriber Number Group Number Insured Name Patient Relationship to Insured Coverage Start Date Coverage End Date Medicare of [employer] [address] [id number] Jessica Hubbard Self - patient is the insured Medical (General) History Medical History History ICD Code Essential hypertension I10 Atrial fibrillation, unspecified type I4 8.91 Cardiac pacemaker Z95.0 Type 2 diabetes mellitus wit hout complication, without long-term current use of insulin E11.9 Mild dementia without behavi oral disturbance, psychotic disturbance, mood disturbance, or anxiety, unspecified dementia type F03.A0 History of CVA (cerebrovascular accident ) Z86.73 Dyslipidemia E78.5 Anxiety F41.9 Chronic constipation K59.09 History of fall Z91.81 Mixed stress and urge urinary incontinen ce N39.46 Primary osteoarthritis involving multipl e joints M15.0 Surgical History Surgery Date(Month/Year) Pacemaker placement about 11 years ago Right knee replacement about 14 years ag o. Hospitalization History Reason Date(Month/Year) Palpitations due to pacemaker malfunctio n 02/2024
[2025-06-02 23:19] LABS: OBS Int Ctl Valid YES; OBS1 NEGATIVE (NEGATIVE)
[2025-06-03 00:01] VITALS: BP 119/64; PULSE 70; RESP 18; O2SAT 97
[2025-06-03 00:01] LABS: INTERNATIONAL NORM RATIO 3.0 (0.9-1.1); Prothrombin Time 36.0 SEC (11.2-13.5)
--- NOTE | 2025-06-03 01:19 | PC.NURSE ---
MD Linder at bedside speaking with and patient regarding new medication orders and risk vs benefit of discontinuing the pt's warfarin s/t increased falls. does not seem to fully understand the conversation and/or purpose of concern r/t use of warfarin. RN to medicate per MAR. Pt appears to be comfortable and is quiet with eyes closed when left alone, intermittently will cry out when RN at bedside. Comfort measures provided including but not limited to warm blanket and repositioning. PA reviewed plan with this RN; medication admin now and then repeat labs in the AM.
[2025-06-03 04:54] LABS: Hematocrit 26.4 % (37.0-47.0); Hemoglobin 8.5 g/dl (12.0-16.0)
[2025-06-03 04:57] VITALS: BP 117/65; PULSE 60; RESP 12; TEMP 36.7; O2SAT 97
[2025-06-03 06:40] VITALS: BP 124/61; PULSE 60; RESP 18; O2SAT 97
--- NOTE | 2025-06-03 07:06 | PC.NURSE ---
RN attempted to call [facility] to give nurse to nurse report on this patient however the nurse who answered the phone stated I just don't know who to give you to because we are in the middle of report . RN provided report to mariah castillo and aleksandar in order for them to attempt to outreach [facility] at a later time and/or if they call.
--- OUTSIDE RECORDS SUMMARY | 2025-07-21 19:00 | XMS_ITS | Clinical Summary ---
Author Organization Unknown Care Team Providers Care Supervisor [employer] Name Role Phone CARL FERMIN, RAMOS Unavailable Jo vailable PENDTAD INDUSTRIAL WORKERS, LARISA Unavailable Unavailable FECTEAU TEACHER INSTRUMENTAL, PEPITO Unavailable Unavailable MULU RN, RADHA Unavailable Unavailab salvador MCCLAIN PT, HERBIE Unavailable Unavail able READING OT, RANDALL Unavailable Unavailable SIGRID PT, GAIL Unavailable Unavailable Payers Payer Name Policy Type Policy Number Effective Date Expira tion Date MEDICARE.NGS.PDGM [id number] Problems Condition Name Condition Details Condition Category Status Onset Date Resolution Date Last Treatment Date Treating Clinician Comments VASCULAR DEMENTIA, UNSPECIFIED SEVERITY, WITH ANXIETY Active 03-16 00:00: 00 VASCULAR DEMENTIA, UNSPECIFIED SEVERITY, WITH MOOD DISTURB Active 03-16 00:00: 00 IRON DEFICIENCY ANEMIA, UNSPECIFIED Active 03-16 00:00: 00 PRESSURE ULCER OF RIGHT BUTTOCK, UNSPECIFIED STAGE Active 03-16 00:00: 00 PRESSURE ULCER OF LEFT BUTTOCK, UNSPECIFIED STAGE Active 03-16 00:00: 00 HYP HRT AND [...] OF ANTICOAGULAN TS Active 03-16 00:00: 00 [facility] (CURRENT) USE OF ORAL HYPOGLYCEMIC DRUGS Active [...] 2024-06 00:00: 00 03-25 00:00 :00 No [id number] Per instruc tions Per instructio ns (route: transderma l) Med Classific ation: Cognitive Disorder Therapy warfarin 5 mg tablet 03-11 00:00: 00 Yes [id number] BLOOD THINNER Per instruc tions DAILY Per instructio ns DAILY (route: oral) Med Classific ation: Hematolog ical Agents amiodarone 200 mg tablet 03-10 00:00: 00 Yes [id number] CHF 1 tablet DAILY 1 tablet DAILY (route: oral) Med Classific ation: Cardiovas cular Therapy Agents bupropion HCl XL 300 mg 24 hr tablet, extended release 03-10 00:00: 00 Yes [id number] DEMENTIA 1 tablet DAILY 1 tablet DAILY (route: oral) Med Classific ation: Central Nervous System Agents buspirone 5 mg tablet 03-10 00:00: 00 Yes [id number] ANXIETY 1 tablet 2 TIMES DAILY 1 tablet 2 TIMES DAILY (route: oral) Med Classific ation: Central Nervous System Agents glimepiride 1 mg tablet 03-10 00:00: 00 Yes [id number] DM 1 tablet DAILY 1 tablet DAILY (route: oral) Med Classific ation: Endocrine memantine 21 mg capsule sprinkle,ex tended release 24hr 03-10 00:00: 00 Yes [id number] DEMENTIA 1 capsule DAILY 1 capsule DAILY (route: oral) Med Classific ation: Cognitive Disorder Therapy metformin 1,000 mg tablet 03-10 00:00: 00 Yes [id number] DM 0.5 tablet DAILY 0.5 tablet DAILY (route: oral) Med Classific ation: Endocrine simvastatin 10 mg tablet 03-10 00:00: 00 Yes [id number] HIGH CHOLESTEROL 1 tablet DAILY 1 tablet DAILY (route: oral) Med Classific ation: Cardiovas cular Therapy Agents bumetanide 1 mg tablet 2024-06 00:00: 00 Yes [id number] FLUID RETENTION 0.5 mg DAILY 0.5 mg DAILY (route: oral) Med Classific ation: Cardiovas cular Therapy Agents Fish Oil 1,000 mg (120 mg-180 mg) capsule 2024-06 00:00: 00 Yes [id number] HEART 1 capsule 2 TIMES DAILY 1 capsule 2 TIMES DAILY (route: oral) Med Classific ation: Cardiovas cular Therapy Agents acetaminoph en 325 mg tablet 2024-06 00:00: 00 Yes [id number] pain 2 tablet EVERY 6 HOURS 2 [...] CONSULTING PHYSICIANS. RN TO OBSERVE AND ASSESS, INDUSTRIAL WORKERS/PARAMEDIC INSTRUCTOR TO OBSERVE FOR RISK FOR FALLS AND INSTRUCT IN FALL PREVENTION, HOME SAFETY, MEDICATION MANAGEMENT, INFECTION PREVENTION, AND NUTRITION MANAGEMENT. RN/INDUSTRIAL WORKERS/PARAMEDIC INSTRUCTOR NURSE MAY PERFORM O2 SATURATION LEVEL ON ADMISSION AND PRN FOR RN TO ASSESS/INDUSTRIAL WORKERS TO OBSERVE PATIENT, WITH NOTIFICATION TO THE PHYSICIAN IF SATURATION IS 90% IN THE ABSENCE OF MORE SPECIFIC PARAMETERS FROM THE PHYSICIAN. AGENCY MAY PERFORM A RESUMPTION OF CARE VISIT FOLLOWING ANY HOSPITAL ADMISSION. RN/INDUSTRIAL WORKERS/PARAMEDIC INSTRUCTOR TO MONITOR CO-MORBID CONDITIONS LISTED ON THE PLAN OF CARE AND ANY NEW CONDITIONS THAT PRESENT THEMSELVES DURING THIS EPISODE TO IDENTIFY CHANGES AND INTERVENE TO MINIMIZE COMPLICATIONS. [code = RN TO OBSERVE, ASSESS, EVALUATE, AND DEVELOP AN INDIVIDUALIZED PLAN OF CARE. AGENCY MAY ACCEPT ORDERS FROM CONSULTING PHYSICIANS. RN TO OBSERVE AND ASSESS, INDUSTRIAL WORKERS/PARAMEDIC INSTRUCTOR TO OBSERVE FOR RISK FOR FALLS AND INSTRUCT IN FALL PREVENTION, HOME SAFETY, MEDICATION MANAGEMENT, INFECTION PREVENTION, AND NUTRITION MANAGEMENT. RN/INDUSTRIAL WORKERS/PARAMEDIC INSTRUCTOR NURSE MAY PERFORM O2 SATURATION LEVEL ON ADMISSION AND PRN FOR RN TO ASSESS/INDUSTRIAL WORKERS TO OBSERVE PATIENT, WITH NOTIFICATION TO THE PHYSICIAN IF SATURATION IS 90% IN THE ABSENCE OF MORE SPECIFIC PARAMETERS FROM THE PHYSICIAN. AGENCY MAY PERFORM A RESUMPTION OF CARE VISIT FOLLOWING ANY HOSPITAL ADMISSION. RN/INDUSTRIAL WORKERS/PARAMEDIC INSTRUCTOR TO MONITOR CO-MORBID CONDITIONS LISTED ON THE PLAN OF CARE AND ANY NEW CONDITIONS THAT PRESENT THEMSELVES DURING THIS EPISODE TO IDENTIFY CHANGES AND INTERVENE TO MINIMIZE COMPLICATIONS.] Future Scheduled Test MEDICATION MANAGEMENT; RN/INDUSTRIAL WORKERS/PARAMEDIC INSTRUCTOR TO REVIEW MEDICATIONS FOR INTERACTIONS, EFFECTIVENESS OF DRUG THERAPY, AND SIGNS/SYMPTOMS OF ADVERSE REACTIONS. MAY INSTRUCT AND REINFORCE MEDICATION TEACHING RELATED TO THE USE OF MEDICATIONS, DOSAGE, FREQUENCY, PURPOSE, SIDE EFFECTS, AND TO REPORT COMPLICATIONS. [code = MEDICATION MANAGEMENT; RN/INDUSTRIAL WORKERS/PARAMEDIC INSTRUCTOR TO REVIEW MEDICATIONS FOR INTERACTIONS, EFFECTIVENESS OF DRUG THERAPY, AND SIGNS/SYMPTOMS OF ADVERSE REACTIONS. MAY INSTRUCT AND REINFORCE MEDICATION TEACHING RELATED TO THE USE OF MEDICATIONS, DOSAGE, FREQUENCY, PURPOSE, SIDE EFFECTS, AND TO REPORT COMPLICATIONS.] Future Scheduled Test RISK FOR H OSPITALIZATION; RN TO ASSESS/TEACH, PARAMEDIC INSTRUCTOR/INDUSTRIAL WORKERS TO OBSERVE/TEACH PATIENT/CAREGIVER ON RISK FOR HOSPITALIZATION/EMERGENCY ROOM VISITS, TEACH SIGNS AND SYMPTOMS THAT PUT PATIENT AT RISK, WHEN TO NOTIFY NURSE/PHYSICIAN OF COMPLICATIONS/DECLINE, AND WHEN TO CALL 911. [code = RISK FOR HOSPITALIZATION; RN TO ASSESS/TEACH, PARAMEDIC INSTRUCTOR/INDUSTRIAL WORKERS TO OBSERVE/TEACH PATIENT/CAREGIVER ON RISK FOR HOSPITALIZATION/EMERGENCY ROOM VISITS, TEACH SIGNS AND SYMPTOMS THAT PUT PATIENT AT RISK, WHEN TO NOTIFY NURSE/PHYSICIAN OF COMPLICATIONS/DECLINE, AND WHEN TO CALL 911.] Future Scheduled Test CARDIOVASC ULAR SYSTEM; RN TO ASSESS/TEACH, INDUSTRIAL WORKERS/PARAMEDIC INSTRUCTOR TO OBSERVE/TEACH RELATED TO ALTERED CARDIOVASCULAR STATUS TO MINIMIZE COMPLICATIONS AND REDUCE HOSPITALIZATION. [code = CARDIOVASCULAR SYSTEM; RN TO ASSESS/TEACH, INDUSTRIAL WORKERS/PARAMEDIC INSTRUCTOR TO OBSERVE/TEACH RELATED TO ALTERED CARDIOVASCULAR STATUS TO MINIMIZE COMPLICATIONS AND REDUCE HOSPITALIZATION.] Future Scheduled Test HEART FAIL URE; RN TO ASSESS/TEACH, INDUSTRIAL WORKERS/PARAMEDIC INSTRUCTOR TO OBSERVE/TEACH CARDIOPULMONARY SYSTEM TO IDENTIFY SIGNS [...] [code = HEART FAILURE; RN TO ASSESS/TEACH, INDUSTRIAL WORKERS/PARAMEDIC INSTRUCTOR TO OBSERVE/TEACH CARDIOPULMONARY SYSTEM TO IDENTIFY SIGNS [...] ARRHYTHMIA MANAGEMENT; RN TO ASSESS AND TEACH, INDUSTRIAL WORKERS/PARAMEDIC INSTRUCTOR TO OBSERVE AND TEACH WARNING SIGNS AND SYMPTOMS TO AVOID HOSPITALIZATION. [code = ARRHYTHMIA MANAGEMENT; RN TO ASSESS AND TEACH, INDUSTRIAL WORKERS/PARAMEDIC INSTRUCTOR TO OBSERVE AND TEACH WARNING SIGNS AND SYMPTOMS TO AVOID HOSPITALIZATION.] Future Scheduled Test SKIN INTEG RITY RN TO ASSESS AND TEACH, INDUSTRIAL WORKERS/PARAMEDIC INSTRUCTOR TO OBSERVE AND TEACH INTEGUMENTARY STATUS TO IDENTIFY CHANGES AND INTERVENE TO MINIMIZE COMPLICATIONS. PROVIDE SKILLED TEACHING OF GENERAL WOUND AND SKIN CARE AND PREVENTION RELATED TO ACTUAL ALTERED SKIN INTEGRITY [code = SKIN INTEGRITY RN TO ASSESS AND TEACH, INDUSTRIAL WORKERS/PARAMEDIC INSTRUCTOR TO OBSERVE AND TEACH INTEGUMENTARY STATUS TO IDENTIFY CHANGES AND INTERVENE TO MINIMIZE COMPLICATIONS. PROVIDE SKILLED TEACHING OF GENERAL WOUND AND SKIN CARE AND PREVENTION RELATED TO ACTUAL ALTERED SKIN INTEGRITY] Future Scheduled Test RN/INDUSTRIAL WORKERS/PARAMEDIC INSTRUCTOR TO PERFORM/TEACH PATIENT/CAREGIVER WOUND CARE TO BLOOD BLISTER TO RIGHT LATERAL CALF: CLEANSE WITH NORMAL SALINE, APPLY PROTECTIVE FOAM DRESSING CHANGE DRESSING WEEKLY AND PRN FOR SOILAGE OR DISPLACEMENT RN/INDUSTRIAL WORKERS/PARAMEDIC INSTRUCTOR TO PERFORM/TEACH PATIENT/CAREGIVER WOUND CARE TO BLOOD BLISTER TO LEFT SCALP CLEANSE WITH NORMAL SALINE, MONITOR FOR CHANGES IN SIZE, COLOR OR TURGOR, REPORT TO PRIMARY CARE [code = RN/INDUSTRIAL WORKERS/PARAMEDIC INSTRUCTOR TO PERFORM/TEACH PATIENT/CAREGIVER WOUND CARE TO BLOOD BLISTER TO RIGHT LATERAL CALF: CLEANSE WITH NORMAL SALINE, APPLY PROTECTIVE FOAM DRESSING CHANGE DRESSING WEEKLY AND PRN FOR SOILAGE OR DISPLACEMENT RN/INDUSTRIAL WORKERS/PARAMEDIC INSTRUCTOR TO PERFORM/TEACH PATIENT/CAREGIVER WOUND CARE TO BLOOD BLISTER TO LEFT SCALP CLEANSE WITH NORMAL SALINE, MONITOR FOR CHANGES IN SIZE, COLOR OR TURGOR, REPORT TO PRIMARY CARE] Future Scheduled Test PAIN MANAG EMENT; RN TO ASSESS AND TEACH, PARAMEDIC INSTRUCTOR/INDUSTRIAL WORKERS TO OBSERVE AND TEACH AND PROVIDE EDUCATION ON PAIN MANAGEMENT TECHNIQUES. [code = PAIN MANAGEMENT; RN TO ASSESS AND TEACH, PARAMEDIC INSTRUCTOR/INDUSTRIAL WORKERS TO OBSERVE AND TEACH AND PROVIDE EDUCATION ON PAIN MANAGEMENT TECHNIQUES.] Future Scheduled Test FALL REDUC TION MANAGEMENT; RN TO ASSESS AND OBSERVE, INDUSTRIAL WORKERS/PARAMEDIC INSTRUCTOR TO OBSERVE FALL RISK FACTORS AND EDUCATE PATIENT/CAREGIVER ON STRATEGIES TO MINIMIZE THE RISK OF FALLING. [code = FALL REDUCTION MANAGEMENT; RN TO ASSESS AND OBSERVE, INDUSTRIAL WORKERS/PARAMEDIC INSTRUCTOR TO OBSERVE FALL RISK FACTORS AND EDUCATE PATIENT/CAREGIVER ON STRATEGIES TO MINIMIZE THE RISK OF FALLING.] Future Scheduled Test DIABETES M ONITORING RN/PARAMEDIC INSTRUCTOR/INDUSTRIAL WORKERS TO MONITOR BLOOD SUGAR LOG FOR BLOOD SUGAR READINGS THAT ARE BEING CHECKED BY CAREGIVER DAILY. PATIENT THERAPEUTIC BLOOD SUGAR PARAMETERS ARE 80 - 200. REPORT BLOOD SUGARS OUT OF RANGE TO PHYSICIAN. NURSE MAY PERFORM FINGER STICK BLOOD GLUCOSE NEEDED FOR SIGNS AND SYMPTOMS OF HYPO AND HYPERGLYCEMIA. RN/PARAMEDIC INSTRUCTOR/INDUSTRIAL WORKERS TO MONITOR ADHERENCE OF CAREGIVER PERFORMING DIABETIC FOOT CARE AND MAY PERFORM DIABETIC FOOT CARE PRN. RN/PARAMEDIC INSTRUCTOR/INDUSTRIAL WORKERS TO MONITOR FOR ADHERENCE TO DIABETIC SELF-CARE AND MANAGEMENT INCLUDING MEDICATIONS. [code = DIABETES MONITORING RN/PARAMEDIC INSTRUCTOR/INDUSTRIAL WORKERS TO MONITOR BLOOD SUGAR LOG FOR BLOOD SUGAR READINGS THAT ARE BEING CHECKED BY CAREGIVER DAILY. PATIENT THERAPEUTIC BLOOD SUGAR PARAMETERS ARE 80 - 200. REPORT BLOOD SUGARS OUT OF RANGE TO PHYSICIAN. NURSE MAY PERFORM FINGER STICK BLOOD GLUCOSE NEEDED FOR SIGNS AND SYMPTOMS OF HYPO AND HYPERGLYCEMIA. RN/PARAMEDIC INSTRUCTOR/INDUSTRIAL WORKERS TO MONITOR ADHERENCE OF CAREGIVER PERFORMING DIABETIC FOOT CARE AND MAY PERFORM DIABETIC FOOT CARE PRN. RN/PARAMEDIC INSTRUCTOR/INDUSTRIAL WORKERS TO MONITOR FOR ADHERENCE TO DIABETIC SELF-CARE AND MANAGEMENT INCLUDING MEDICATIONS.] Future Scheduled Test GENITOURIN MAICOL MANAGEMENT; RN TO ASSESS AND TEACH, INDUSTRIAL WORKERS/PARAMEDIC INSTRUCTOR TO OBSERVE AND TEACH RELATED TO ALTERED GENITOURINARY STATUS TO MINIMIZE COMPLICATIONS AND REDUCE HOSPITALIZATION. [code = GENITOURINARY MANAGEMENT; RN TO ASSESS AND TEACH, INDUSTRIAL WORKERS/PARAMEDIC INSTRUCTOR TO OBSERVE AND TEACH RELATED TO ALTERED GENITOURINARY STATUS TO MINIMIZE COMPLICATIONS AND REDUCE HOSPITALIZATION.] Future Scheduled Test URINARY TR ACT INFECTION MANAGEMENT; RN/PARAMEDIC INSTRUCTOR/INDUSTRIAL WORKERS TO PROVIDE SKILLED TEACHING AND SELF- CARE MANAGEMENT RELATED TO UTI TO MINIMIZE COMPLICATIONS AND REDUCE THE RISK OF HOSPITALIZATION. [code = URINARY TRACT INFECTION MANAGEMENT; RN/PARAMEDIC INSTRUCTOR/INDUSTRIAL WORKERS TO PROVIDE SKILLED TEACHING AND SELF- CARE MANAGEMENT RELATED TO UTI TO MINIMIZE COMPLICATIONS AND REDUCE THE RISK OF HOSPITALIZATION.] Future Scheduled Test URINARY MO LECULAR TESTING PROTOCOL UP TO 2 PRN RN/INDUSTRIAL WORKERS/PARAMEDIC INSTRUCTOR VISITS MAY BE PERFORMED FOR S/S OF UTI. RN TO ASSESS, INDUSTRIAL WORKERS/PARAMEDIC INSTRUCTOR TO OBSERVE INITIATION OF UTI PROTOCOL. RN/PARAMEDIC INSTRUCTOR/INDUSTRIAL WORKERS TO INSTRUCT PATIENT AND/OR CAREGIVER ON S/S OF UTI TO REPORT TO RN/PARAMEDIC INSTRUCTOR/INDUSTRIAL WORKERS IF NEW OR WORSENING SYMPTOMS. DRINK PLENTY OF WATER THROUGHOUT THE DAY TO MAINTAIN HYDRATION (UNLESS CONTRAINDICATED.) URINATE WHEN THE URGE IS FELT, DO NOT WAIT. WASH GENITALS DAILY. WIPE FROM FRONT TO BACK AFTER HAVING A BOWEL MOVEMENT. RN/PARAMEDIC INSTRUCTOR/INDUSTRIAL WORKERS TO OBTAIN URINE SPECIMEN FOR MOLECULAR URINE TESTING BY RN/PARAMEDIC INSTRUCTOR/INDUSTRIAL WORKERS TO OBTAIN URINE SPECIMEN FOR U/A WITH [...] MOLECULAR TESTING PROTOCOL UP TO 2 PRN RN/INDUSTRIAL WORKERS/PARAMEDIC INSTRUCTOR VISITS MAY BE PERFORMED FOR S/S OF UTI. RN TO ASSESS, INDUSTRIAL WORKERS/PARAMEDIC INSTRUCTOR TO OBSERVE INITIATION OF UTI PROTOCOL. RN/PARAMEDIC INSTRUCTOR/INDUSTRIAL WORKERS TO INSTRUCT PATIENT AND/OR CAREGIVER ON S/S OF UTI TO REPORT TO RN/PARAMEDIC INSTRUCTOR/INDUSTRIAL WORKERS IF NEW OR WORSENING SYMPTOMS. DRINK PLENTY OF WATER THROUGHOUT THE DAY TO MAINTAIN HYDRATION (UNLESS CONTRAINDICATED.) URINATE WHEN THE URGE IS FELT, DO NOT WAIT. WASH GENITALS DAILY. WIPE FROM FRONT TO BACK AFTER HAVING A BOWEL MOVEMENT. RN/PARAMEDIC INSTRUCTOR/INDUSTRIAL WORKERS TO OBTAIN URINE SPECIMEN FOR MOLECULAR URINE TESTING BY RN/PARAMEDIC INSTRUCTOR/INDUSTRIAL WORKERS TO OBTAIN URINE SPECIMEN FOR U/A WITH [...] Scheduled Test PRN VISITS ; NUMBER OF RN/INDUSTRIAL WORKERS/PARAMEDIC INSTRUCTOR VISITS: 2 RN/INDUSTRIAL WORKERS/PARAMEDIC INSTRUCTOR TO PERFORM: INR/URINARY MANAGEMENT FOR THE FOLLOWING REASONS: UTI, UNSTABLE INR [code = PRN VISITS; NUMBER OF RN/INDUSTRIAL WORKERS/PARAMEDIC INSTRUCTOR VISITS: 2 RN/INDUSTRIAL WORKERS/PARAMEDIC INSTRUCTOR TO PERFORM: INR/URINARY MANAGEMENT FOR THE FOLLOWING REASONS: UTI, UNSTABLE INR] Future Scheduled Test AGENCY MAY PERFORM A RESUMPTION OF CARE VISIT FOLLOWING ANY HOSPITAL ADMISSION. OT TO EVALUATE, OBSERVE / ASSESS, AND MONITOR, HEALTH COACH TO OBSERVE AND MONITOR, PROVIDE SKILLED THERAPEUTIC INTERVENTION, ACTIVITY, EDUCATION, AND TRAINING TO ADDRESS; BATHING/SHOWERING (OT/JESS) CHAIR TRANSFERS (OT/JESS) TOILET TRANSFER (OT/HEALTH COACH) BATH/SHOWER TRANSFER (OT/JESS) FLOOR RECOVERY (OT/JESS) POSTURAL CONTROL/BALANCE (OT/JESS) THERAPEUTIC EXERCISE (OT/HEALTH COACH) OT TO ASSESS / JESS TO MONITOR FOR HEART FAILURE EXACERBATION AND RECORD PATIENT REPORTED WEIGHT, AND NOTIFY THE PHYSICIAN AND/OR THE RN CLINICAL FIREWORKS ASSEMBLY SUPERVISOR FOR PHYSICIAN NOTIFICATION OF HF EXACERBATION (2LB WEIGHT GAIN IN 1 DAY, 5LBS IN A WEEK OR 5 LBS OVER BASELINE; INCREASED SOB, EDEMA, NEEDING MORE PILLOWS AT NIGHT, CRACKLES IN BASIS OF THE LUNGS OR PMI SHIFT). OT/JESS TO MONITOR FOR AND REPORT EARLY SIGNS OF ANTICOAGULANT TOXICITY TO THE PHYSICIAN AND/OR THE RN CLINICAL FIREWORKS ASSEMBLY SUPERVISOR FOR PHYSICIAN NOTIFICATION AND TO PROVIDE PATIENT/CAREGIVER EDUCATION ON ANTICOAGULANT THERAPY OT/JESS TO MONITOR AND EDUCATE ON OXYGEN SATURATION DURING ADLS/IADLS, NOTIFY PHYSICIAN AND/OR THE RN CLINICAL FIREWORKS ASSEMBLY SUPERVISOR FOR PHYSICIAN NOTIFICATION AND IF O2 SATS BELOW 90% AFTER 10 MIN OF REST. OT/HEALTH COACH MAY EDUCATE ON PAIN MANAGEMENT CLINICALLY INDICATED. OT / JESS TO IDENTIFY FALL RISK FACTORS; EDUCATE THE PATIENT/CAREGIVER ON WAYS TO REDUCE FALL RISK FACTORS AND ESTABLISH HOME EXERCISE PROGRAM TO MINIMIZE FALL RISK. MAY TEACH THE PATIENT FLOOR RECOVERY WHEN CLINICALLY APPROPRIATE. [code = AGENCY MAY PERFORM A RESUMPTION OF CARE VISIT FOLLOWING ANY HOSPITAL ADMISSION. OT TO EVALUATE, OBSERVE / ASSESS, AND MONITOR, HEALTH COACH TO OBSERVE AND MONITOR, PROVIDE SKILLED THERAPEUTIC INTERVENTION, ACTIVITY, EDUCATION, AND TRAINING TO ADDRESS; BATHING/SHOWERING (OT/JESS) CHAIR TRANSFERS (OT/HEALTH COACH) TOILET TRANSFER (OT/JESS) BATH/SHOWER TRANSFER (OT/HEALTH COACH) FLOOR RECOVERY (OT/HEALTH COACH) POSTURAL CONTROL/BALANCE (OT/HEALTH COACH) THERAPEUTIC EXERCISE (OT/HEALTH COACH) OT TO ASSESS / JESS TO MONITOR FOR HEART FAILURE EXACERBATION AND RECORD PATIENT REPORTED WEIGHT, AND NOTIFY THE PHYSICIAN AND/OR THE RN CLINICAL FIREWORKS ASSEMBLY SUPERVISOR FOR PHYSICIAN NOTIFICATION OF HF EXACERBATION (2LB WEIGHT GAIN IN 1 DAY, 5LBS IN A WEEK OR 5 LBS OVER BASELINE; INCREASED SOB, EDEMA, NEEDING MORE PILLOWS AT NIGHT, CRACKLES IN BASIS OF THE LUNGS OR PMI SHIFT). OT/JESS TO MONITOR FOR AND REPORT EARLY SIGNS OF ANTICOAGULANT TOXICITY TO THE PHYSICIAN AND/OR THE RN CLINICAL FIREWORKS ASSEMBLY SUPERVISOR FOR PHYSICIAN NOTIFICATION AND TO PROVIDE PATIENT/CAREGIVER EDUCATION ON ANTICOAGULANT THERAPY OT/JESS TO MONITOR AND EDUCATE ON OXYGEN SATURATION DURING ADLS/IADLS, NOTIFY PHYSICIAN AND/OR THE RN CLINICAL FIREWORKS ASSEMBLY SUPERVISOR FOR PHYSICIAN NOTIFICATION AND IF O2 SATS BELOW 90% AFTER 10 MIN OF REST. OT/HEALTH COACH MAY EDUCATE ON PAIN MANAGEMENT CLINICALLY INDICATED. OT / JESS TO IDENTIFY FALL RISK FACTORS; EDUCATE THE PATIENT/CAREGIVER ON WAYS TO REDUCE FALL RISK FACTORS AND ESTABLISH HOME EXERCISE PROGRAM TO MINIMIZE FALL RISK. MAY TEACH THE PATIENT FLOOR RECOVERY WHEN CLINICALLY APPROPRIATE.] Future Scheduled Test AGENCY MAY PERFORM A RESUMPTION OF CARE VISIT FOLLOWING ANY HOSPITAL ADMISSION. PT TO EVALUATE, OBSERVE / ASSESS, AND MONITOR, TEACHER INSTRUMENTAL TO OBSERVE AND MONITOR, PROVIDE SKILLED THERAPEUTIC INTERVENTION, ACTIVITY, EDUCATION, AND TRAINING TO ADDRESS; PT/TEACHER INSTRUMENTAL TO PROVIDE GAIT TRAINING FOR IMPROVED MOBILITY AND /OR TO NORMALIZE GAIT PATTERN NEUROMUSCULAR RE-EDUCATION / BALANCE / POSTURAL CONTROL (PT) THERAPEUTIC EXERCISES AND ESTABLISHING A HOME EXERCISE PROGRAM (PT/TEACHER INSTRUMENTAL) FLOOR RECOVERY (PT/TEACHER INSTRUMENTAL) SIT TO/FROM STAND TRANSFERS (PT/TEACHER INSTRUMENTAL) PT / TEACHER INSTRUMENTAL TO MONITOR AND EDUCATE ON OXYGEN SATURATION DURING ADLS/IADLS, NOTIFY PHYSICIAN AND/OR THE RN CLINICAL FIREWORKS ASSEMBLY SUPERVISOR FOR PHYSICIAN NOTIFICATION AND IF O2 SATS BELOW PHYSICIAN ORDERED PARAMETERS AFTER 10 MIN OF REST PT / TEACHER INSTRUMENTAL MAY EDUCATE ON PAIN MANAGEMENT CLINICALLY INDICATED, INCLUDING NON-PHARMACOLOGICAL PAIN REDUCTION TECHNIQUES AND USE OF CRYOTHERAPY OR HEAT UP TO 20 MIN AT A TIME FOR PAIN MANAGEMENT 3-5 TIMES PER DAY TO LE/KNEES PT/TEACHER INSTRUMENTAL TO IDENTIFY FALL RISK FACTORS; EDUCATE THE PATIENT/CAREGIVER ON WAYS TO REDUCE FALL RISK FACTORS AND ESTABLISH HOME EXERCISE PROGRAM TO MINIMIZE FALL RISK. MAY TEACH THE PATIENT FLOOR RECOVERY WHEN CLINICALLY APPROPRIATE PT / TEACHER INSTRUMENTAL TO EDUCATE ON HEART FAILURE SELF-MANAGEMENT [code = AGENCY MAY PERFORM A RESUMPTION OF CARE VISIT FOLLOWING ANY HOSPITAL ADMISSION. PT TO EVALUATE, OBSERVE / ASSESS, AND MONITOR, TEACHER INSTRUMENTAL TO OBSERVE AND MONITOR, PROVIDE SKILLED THERAPEUTIC INTERVENTION, ACTIVITY, EDUCATION, AND TRAINING TO ADDRESS; PT/TEACHER INSTRUMENTAL TO PROVIDE GAIT TRAINING FOR IMPROVED MOBILITY AND /OR TO NORMALIZE GAIT PATTERN NEUROMUSCULAR RE-EDUCATION / BALANCE / POSTURAL CONTROL (PT) THERAPEUTIC EXERCISES AND ESTABLISHING A HOME EXERCISE PROGRAM (PT/TEACHER INSTRUMENTAL) FLOOR RECOVERY (PT/TEACHER INSTRUMENTAL) SIT TO/FROM STAND TRANSFERS (PT/TEACHER INSTRUMENTAL) PT / TEACHER INSTRUMENTAL TO MONITOR AND EDUCATE ON OXYGEN SATURATION DURING ADLS/IADLS, NOTIFY PHYSICIAN AND/OR THE RN CLINICAL FIREWORKS ASSEMBLY SUPERVISOR FOR PHYSICIAN NOTIFICATION AND IF O2 SATS BELOW PHYSICIAN ORDERED PARAMETERS AFTER 10 MIN OF REST PT / TEACHER INSTRUMENTAL MAY EDUCATE ON PAIN MANAGEMENT CLINICALLY INDICATED, INCLUDING NON-PHARMACOLOGICAL PAIN REDUCTION TECHNIQUES AND USE OF CRYOTHERAPY OR HEAT UP TO 20 MIN AT A TIME FOR PAIN MANAGEMENT 3-5 TIMES PER DAY TO LE/KNEES PT/TEACHER INSTRUMENTAL TO IDENTIFY FALL RISK FACTORS; EDUCATE THE PATIENT/CAREGIVER ON WAYS TO REDUCE FALL RISK FACTORS AND ESTABLISH HOME EXERCISE PROGRAM TO MINIMIZE FALL RISK. MAY TEACH THE PATIENT FLOOR RECOVERY WHEN CLINICALLY APPROPRIATE PT / TEACHER INSTRUMENTAL TO EDUCATE ON HEART FAILURE SELF-MANAGEMENT] Goal [...] End Date/Time Encounter Type Admission Type Attending [facility] Care Department Encounter ID Discharge Date Discharge Status Discharge Condition Discharge Reason Percent Goals Met 2025-05-24 00:00:00 2025-07-22 00:00:00 Outpatient RECERTIFIC ATION [facility] [id number]
== END 2025-06-03 05:52 | disposition short-term general hospital (02) ==
PROVIDERS: Physician Assistant Medical; Emergency Provider Emergency Medicine; PCP Internal Medicine Geriatric Medicine
DX: S36.892A Contusion of other intra-abdominal organs, initial encounter (principal); S70.12XA Contusion of left thigh, initial encounter; S70.11XA Contusion of right thigh, initial encounter; W01.0XXA Fall on same level from slipping, tripping and stumbling without subsequent striking against object, initial encounter; D64.9 Anemia, unspecified; I10 Essential (primary) hypertension; E11.9 Type 2 diabetes mellitus without complications; E78.5 Hyperlipidemia, unspecified; I48.91 Unspecified atrial fibrillation; Y93.9 Activity, unspecified; Y92.019 Unspecified place in single-family (private) house as the place of occurrence of the external cause; Y99.9 Unspecified external cause status; Z79.84 Long term (current) use of oral hypoglycemic drugs; Z79.899 Other long term (current) drug therapy; Z79.01 Long term (current) use of anticoagulants; Z79.02 Long term (current) use of antithrombotics/antiplatelets
CPT/HCPCS: 36415; 70450; 71045; 72125; 73502; 73562; 74177; 80053; 81001; 82248; 82272; 83735; 85014; 85018; 85025; 85610; 96365; 96367; 96375; 96376; 99284; 99285; J0131; J2270; J3430; J3475; J7168; Q9967

== ENCOUNTER → 2025-06-02 20:11 | Outpatient (BNV) | payer MEDICARE, MEDICAID, SELFPAY | PROVIDERS: Emergency Provider Emergency Medicine; PCP Internal Medicine Geriatric Medicine; Visit Provider Radiology Diagnostic Radiology | DX: K80.20 Calculus of gallbladder without cholecystitis without obstruction (principal); N20.0 Calculus of kidney; R18.8 Other ascites; S70.02XA Contusion of left hip, initial encounter; R41.82 Altered mental status, unspecified; Z04.3 Encounter for examination and observation following other accident; J90 Pleural effusion, not elsewhere classified | CPT/HCPCS: 70450; 71045; 72125; 73502; 73562 ==

== ENCOUNTER 2025-06-06 07:19 | Outpatient (REF) | payer SELFPAY ==
--- OUTSIDE RECORDS SUMMARY | 2024-09-30 06:10 | XMS_ITS ---
Author Organization - [facility] Address [address] [place] [address] Care Team Providers Care Summons Server Name Role Phone Danni Rodgers Unavailable [phone] BLADE LOPEZ Unavailable [phone] REASON FOR VISIT *Initial Care Plan Encounters Encounter Location Date Provider Diagnosis - [facility] [address] [place] [address] 09/30/2024 BLADE LOPEZ Plan Of Treatment No Information Procedure Notes * Category Sub-Category Detail Notes RN Interventions Initial RN intervent ions via SENIOR EXECUTIVE COMPENSATION ANALYST onboarding note Onboarding visit documentation reviewed to form today's care plan: . Based on chart review, the following iss ues were identified:: . Care Plan established for ea ch focus issues outlined in the SENIOR EXECUTIVE COMPENSATION ANALYST onboarding note:: . Community Providers PCP information updated in D MARBELLA, as needed: . Specialist information updated in DASH, as needed: . Pharmacy information updated in eCW and DASH, as needed: . RPM Did SENIOR EXECUTIVE COMPENSATION ANALYST order RPM?: . DME/Supplies Did SENIOR EXECUTIVE COMPENSATION ANALYST order DME/Supplies?: . ACP Forms Did SENIOR EXECUTIVE COMPENSATION ANALYST request ACP forms?: . Care Coordination Did SENIOR EXECUTIVE COMPENSATION ANALYST request any other care coordination?: . PERS Did SENIOR EXECUTIVE COMPENSATION ANALYST order PERS?: . RN Summary/Recommendations: General:Heal th Development Professional:SENIOR EXECUTIVE COMPENSATION ANALYST:PEC:CA:RN: License Verification Did you verify that you are licensed to practice in the member's state?: . Progress Notes * Jessica WORKMANDOB:1940 ( 85 yo F)Acc No.[id number]:09/30/2024 Patient: Jessica STEPHENSON Provider: JEFFREY CASTAÑEDA :1940 A ge:84 Y S ex:Female Date:09/30/2024 Address:[address], [address] , [id number] Subjective: * Chief Complaints: * 1 . *Initial Care Plan. * Medical History: Objective: * Vitals: Assessment: Plan: * Treatment: * Procedures: * *RN Interventions: Initial RN interventions via SENIOR EXECUTIVE COMPENSATION ANALYST onboarding note O nboarding visit documentation reviewed to form today's care plan . B ased on chart review, the following issues were identified: . C are Plan established for each focus issues outlined in the SENIOR EXECUTIVE COMPENSATION ANALYST onboarding note: . Community Providers P CP information updated in DASH, as needed?. S pecialist information updated in DASH, as needed . P harmacy information updated in eCW and DASH, as needed . RPM D id SENIOR EXECUTIVE COMPENSATION ANALYST order RPM? . DME/Supplies D id SENIOR EXECUTIVE COMPENSATION ANALYST order DME/Supplies? . ACP Forms D id SENIOR EXECUTIVE COMPENSATION ANALYST request ACP forms? . Care Coordination D id SENIOR EXECUTIVE COMPENSATION ANALYST request any other care coordination??. PERS D id SENIOR EXECUTIVE COMPENSATION ANALYST order PERS? . RN Summary/Recommendations: General: Health Development Professional: SENIOR EXECUTIVE COMPENSATION ANALYST: PEC: [place]: RN:. License Verification D id you verify that you are licensed to practice in the member's state? . Care Plan: * Problems: * Billing Information: * Visit Code: * Procedure Codes: Care Plan Details* * Electronic signature of JEFFREY DUMONT RA on 06/06/2025 at 07:23 AM EST Sign off status: Pending * Provider: JEFFREY CASTAÑEDA Date: 0 09/30/2024 Generated for Branden ramirez/Norman/Edil on: 08/07/2024 07:23 AM EST
--- OUTSIDE RECORDS SUMMARY | 2025-06-04 23:59 | XMS_ITS | Continuity of Care Document ---
Author Organization [facility] Primary [facility] Address [address] [place] [address]- Care Team Providers Care Wrapping Machine Tender Name Role Phone Dagoberto VALENCIA, Michaela Pulido Primary Care Physician [phone] Encounter [facility] NBR [id number] Date(s): 05/05/25 - 06/04/25 [facility] [address] [place] [address]- Encounter Type: Triage Allergies, Adverse Reactions, Alerts Substance Criticality Severity Reaction Reaction Severity Status clindamycin diarrhea and c. diff Active donepezil Diarrhea Active iodinated radiocontrast dyes Allergy to IVP dye. Allergy to IVP dye. Active Demerol HCl Active penicillin V potassium 1 Unable to assess criticality Persistent Moderate Tongue swelling Active Adhesive Bandage Act alex Latex Active [...] rded tetanus-diphtheria toxoids (Td) 12/18/23 Given SARS-CoV-2(COVID-19)mRNA-LNP vac([id number]) 05/24/23 Recorded RSV vaccine preF3, recombinant 2 05/09/23 Recorded RSV vaccine preF3, recombinant 05/09/23 Recorded [id number]-[id number] 12y+ bivalent booster vax 03/16/22 Recorded SARS-CoV-2 mRNA ([id number]-[id number]) vax 10/06/21 Recorded SARS-CoV-2 (COVID-19) mRNA BNT-162b2 vac 04/13/21 Recorded SARS-CoV-2 (COVID-19) mRNA BNT-162b2 vac 07/29/20 Recorded SARS-CoV-2 (COVID-19) mRNA BNT-162b2 vac 07/08/20 Recorded zoster vaccine, inactivated 12/22/20 Recorded zoster vaccine, inactivated 04/06/20 Recorded pneumococcal 13-valent vaccine 08/28/14 Recorded tetanus/diphtheria/pertussis, acel(Tdap) 08/27/13 Recorded Pneumovax 23 (oldterm) 06/19/08 Recorded 1Result Comment: [05/02/2017] [facility] 2Result Comment: done at [facility] Johny Zhong Medications acetaminophen 325 mg oral [...] 4:11:00 PM EST, Route to Pharmacy Electronically, [facility]/pharmacy #[id number], 152, cm, 02/15/25 0:36:00 EDT, Height, 68.14, kg, 02/15/25 0:36:00 EDT, Dry Weight Start Date: 08/10/25 Stop Date: 12/08/25 Status: Ordered Medication Dispense Status: Completed Quantity: 90.0 Unit: tablet Total Allowed Fills: 4 Fills Dispensed: 0 buPROPion 300 mg/24 hours (XL) oral tablet, extended release 1 tablet, By Mouth, Daily, # 28 tablet, 5 Refills, Maintenance, 02/28/25 9:54:00 AM EDT, [facility]/pharmacy #[id number], 152, cm, 02/24/25 9:38:00 EDT, Height, [...] 9:54:00 AM EDT, Route to Pharmacy Electronically, [facility]/pharmacy #[id number], 152, cm, 02/24/25 9:38:00 EDT, Height, 68.14, kg, 02/15/25 0:36:00 EDT, Dry Weight Start Date: 02/28/25 Status: Ordered Medication Dispense Status: Completed Quantity: 56.0 Unit: tablet Total Allowed Fills: 6 Fills Dispensed: 0 diclofenac 1% topical gel See Instructions, APPLY 2 GRAMS TOPICALLY 4 TIMES A DAY DO NOT EXCEED 8 GRAMS/DAY/SINGLE JOINT OF UPPER EXTREMITIES, # 100 Gm, 1 Refills, [id number], 13, APPLY 2 GRAMS TOPICALLY 4 TIMES [...] Total Allowed Fills: 1 Fills Dispensed: 0 Mattress Mattress, See Instructions, # 1 each, Refills 0, Tot. Refills 0, Maintenance, DX: M19.90, Z74.1, I50.22. Use nightly to assist with elevating HOB, feet as needed, 06/02/25 9:15:00 AM EST, Supply Start Date: 06/02/25 Status: Ordered Medication Dispense Status: Completed Quantity: 1.0 Unit: each Total Allowed Fills: 1 Fills Dispensed: 0 Indications: Unspecified osteoarthritis, unspecified site; Need for assistance with personal care; Chronic systolic (congestive) heart failure; memantine 21 mg oral capsule, extended release [...] 5 Refills, Maintenance, 05/26/25 12:25:00 PM [facility], 172, cm, 03/20/25 13:27:00 EDT, Height, 66.8, kg, 03/03/25 17:00:00 EDT, Dry Weight Start Date: 05/26/25 Status: Ordered Medication Dispense Status: Completed Quantity: 42.0 Unit: tablet Total Allowed Fills: 6 Fills Dispensed: 0 mupirocin 2% topical ointment 1 application, Topically, 2 times a day, for 14 days, apply to affected skin, # 30 Gm, 0 Refills, Acute 06/12/25 4:59:00 PM EST, 05/29/25 4:59:00 PM EST, Ointment, [id number], Partial fill upon patient request if the prescription is for a schedule II opioid drug., 1 application Topically 2 times a day,x14 days,Instr:apply to affected skin, 172, cm, 05/29/25 16:28:00 EST, Height, 66.8, kg,03/03/25 17:00:00 EDT, Dry Weight Start Date: 05/29/25 Stop Date: 06/12/25 Status: Ordered Medication Dispense Status: Completed Quantity: 30.0 Unit: g Total Allowed Fills: 1 Fills Dispensed: 0 Indications: Unspecified open wound, right lower leg, initial encounter; Nitrostat 0.4 mg sublingual tablet 1 tablet = 0.4 mg, Sublingual, Every 5 minutes, PRN for chest pain, # 100 tablet, 11 Refills, Maintenance, 05/13/24 1:46:00 PM EST, Tablet, [id number], Partial fill upon patient request if the prescription is for a schedule II opioid drug., 148, cm, 05/13/24 12:58:00 EST, Height, 55, kg, 09/05/23 22:24:00 EDT, Dry Weight Start Date: 05/13/24 Status: Ordered Medication Dispense Status: Completed Quantity: 100.0 Unit: tablet Total Allowed Fills: 12 Fills Dispensed: 0 nystatin 528061 u/ml oral suspension 5 mL = 500,000 units, By Mouth, 4 times a day, for 7 days, swish and swallow, # 140 mL, 0 Refills, Acute 06/05/25 5:06:00 PM EST, 05/29/25 5:06:00 PM EST, Suspension, [facility]/pharm[facility] #[id number], Partial fillupon patient request if the prescription is for a schedule II opioid drug., 172, cm, 05/29/25 16:28:00 EST, Height, 66.8, kg, 03/03/25 17:00:00 EDT, Dry Weight Start Date: 05/29/25 Stop Date: 06/05/25 Status: Ordered Medication Dispense Status: Completed Quantity: 140.0 Unit: mL Total Allowed Fills: 1 Fills Dispensed: 0 Indications: Unspecified open wound, right lower leg, initial encounter; omeprazole 40 mg oral enteric coated capsule [...] 5 Refills, Maintenance, 08/06/24 2:50:00 PM EST, [facility]/pharmacy#[id number], 0, 1 patch Topically Daily, 148, cm, [...] Total Allowed Fills: 6 Fills Dispensed: 0 Shower Chair See Instructions, # 1 each, Maintenance, DX: M19.90, Z74.1. Use for safety whenever showering., 06/02/25 9:14:00 AM EST, Supply Start Date: 06/02/25 Status: Ordered Medication Dispense Status: Completed Quantity: 1.0 Unit: each Total Allowed Fills: 1 Fills Dispensed: 0 Indications: Unspecified osteoarthritis, unspecified site; Need for assistance with personal care; simvastatin 10 mg oral tablet 1, tablet, [...] Refills, Maintenance, 07/03/24 3:04:00 PM EST, Cream, [facility]/pharmacy #[id number], Partial fill upon patient request if the prescription is for a schedule II opioid drug., 1 application Topically 2 times a day,CT N:Rash,Instr:apply a thin film ; to affected [...] Active Depression, major, in remission Confirmed Active Obese class I Confirmed Active Obstructive sleep apnea Confirmed Active Onychomycosis Confirmed Active Osteoarthritis Confirmed Active Osteopenia of hip Confirmed Active [...] MRI Safety Implantable Status Assigning Authority Unknown [id number] Unknown Unknown 03/18/25 Unknown Unknown Active Unknown Patient Care team information Care Team Personnel Name: Sally Rodriguez RN Position: [facility] RN Member Role: Primary Care Nurse Name: Frankie Leon RN Position: [facility] RN Member Role: Primary Care Nurse Name: Earlene Mclain RN Position: [facility] RN Member Role: Primary Care Nurse Name: Michaela Arenas MD Position: [facility] Physician - Primary Care Member Role: PCP Address: [address] [place] [address] Telecom: Name: Jared Negrete RN Position: [facility] RN Member Role: Primary Care Nurse Care Team Related Persons Name: LAMONT WORKMAN Name: TAMIKA WORKMAN Insurance Providers Guarantor name: JUVENAL JACINTA Health Plan Information #: 1 Payer: MEDICARE B Payer Identifier: NA Member Number: [id number] Group Number: NA Subscriber Identifier: NA Relationship to Subscriber: self Coverage Type: NA Coverage Verification Date: NA Telecom: NA Address: Health [facility] Information #: 2 Payer: MEDEX SECONDARY ONLY Payer Identifier: NA Member Number: [id number] Group Number: [id number] Subscriber Identifier: NA Relationship to Subscriber: self Coverage Type: Medicare Other Coverage Verification Date: NA Telecom: NA Address: NA [facility] Plan Information #: 3 Payer[facility] Payer Identifier: GERRY Member Number: [id number] Group Number: [id number] Subscriber Identifier: GERRY Relationship to Subscriber: self Coverage Type: MEDICAID Coverage Verification Date: NA Telecom: NA Address: NA
--- OUTSIDE RECORDS SUMMARY | 2025-06-06 07:23 | XMS_ITS | Patient Health Record ---
Author Organization [facility] Address [address] [place] [address] Care Team Providers Care Patient Coordinator Name Role Phone Michaela Arenas Primary Care Provider Lou Mccracken Unavailable [phone] Allergies Allergen (clinical drug ingredient) Drug/Non Drug [...] Problem Type II diabetes mellitus without complication (226225904) Type 2 diabetes mellitus without complication, without long-term current use of insulin (E11.9) Active confirmed Vital Signs Heart Rate 69 /min 06/07/2024 Blood pressure diastolic 76 mm Hg 04/09/2025 Height [id number] in 04/09/2025 Blood pressure systolic 130 mm Hg 04/09/2025 Weight 124 lbs 04/09/2025 BMI 25.04 kg/m2 04/09/2025 Encounters Encounter Location Date Provider Diagnosis [facility] [address] 06/07/2024 Lou Perica Tinea unguium B35.1 ; Pain in left toe(s) M79.675 ; Pain in right toe(s) M79.674 and Type 2 diabetes mellitus without complication, without long-term current use of insulin E11.9 [facility] [address] 08/21/2024 Lou Perica Tinea unguium B35.1 ; Ingrown nail L60.0 ; Pain in left toe(s) M79.675 ; Pain in right toe(s) M79.674 and Type 2 diabetes mellitus without complication, without long-term current use of insulin E11.[address] [address] 11/08/2024 Lou Perica Tinea unguium B35.1 ; Pain in left toe(s) M79.675 ; Pain in right toe(s) M79.674 and Type 2 diabetes mellitus without complication, without long-term current use of insulin E11.[address] [address] 01/24/2025 Lou Perica Tinea unguium B35.1 ; Pain in left toe(s) M79.675 ; Pain in right toe(s) M79.674 and Type 2 diabetes mellitus without complication, without long-term current use of insulin E11.[address] [address] 04/09/2025 Lou Perica Tinea unguium B35.1 ; Pain in left toe(s) M79.675 ; Pain in right toe(s) M79.674 and Type 2 diabetes mellitus without complication, without long-term current use of insulin E11.[address] [address] 11/08/2024 Lou Perica Assessments Encounter Date Diagnosis [...] Provider Name:Lou covarrubias, 06/17/2025 01:30:00 PM, [address] [place], [address], Insurance Providers Payer Name Payer Address Payer Phone Subscriber Number Group Number Insured Name Patient Relationship to Insured Coverage Start Date Coverage End Date Medicare National [employer] [address] [place] [address] [id number] Jessica Hubbard Self - patient is the insured [facility] [employer] [address] [place] [address] [id number] Jessica Hubbard Self - patient is the [...]
--- OUTSIDE RECORDS SUMMARY | 2025-06-06 07:24 | XMS_ITS | Clinical Summary ---
Author Organization [facility] Address [address] [place] [address], [place] [address] Care Team Providers Care Ela Teacher Name Role Phone Michaela Arenas MD Primary Care Provider [phone] Medications bumetanide (BUMEX) 1 MG tablet Take 1 mg by mouth 1 (one) time each day Every Monday, Monday AND Monday. Active ferrous sulfate 325 (65 Fe) MG tablet Take 325 mg by mouth every other day Active glimepiride (AMARYL) 2 MG tablet Take 1 mg by mouth daily Active losartan (COZAAR) 50 MG tablet Take 50 mg by mouth 1 (one) time each day Active metFORMIN (GLUCOPHAGE) 1000 MG tablet Take 1,000 mg by mouth 2 (two) times a day with meals Active nitroglycerin (NITROSTAT) 0.[address] 0.4 mg under the tongue every 5 (five) minutes if needed for chest pain Call MD after 3 doses. Active omeprazole (PriLOSEC) [address] capsule Take 40 mg by mouth 1 (one) time each day Do not crush or chew. Active simvastatin (ZOCOR) 10 MG tablet Take 10 mg by mouth every night Active sotalol (BETAPACE) 160 MG tablet Take 320 mg by mouth 2 (two) times a day Active warfarin (COUMADIN) 7.5 MG tablet Take 7.5 mg by mouth 1 (one) time each day Every Monday and Monday. Active warfarin (COUMADIN) 5 MG tablet Take 5 mg by mouth 1 (one) time each day Monday thru Monday. Active Active Problems Problem Noted Date Diagnosed Date Diabetes mellitus 10/12/2020 Essential (primary) hypertension 10/09/2020 Family History Medical History Relation Comments Cancer Brother Diabetes Brother Heart disease Brother Cancer Father Pulmonary embolism Mother Relation Status Comments Brother Father Mother Social History Tobacco Use Types Packs/Day Years Used Date Smoking Tobacco: Never Smokeless Tobacco: Never Alcohol Use Standard Drinks/Week Comments Yes 0 (1 standard drink = 0.6 oz pur e alcohol) 1-2 per year Comments Unknown Sex and Gender Information Value Date Recorded Sex Assigned at Not on file Legal Sex Female 3:58 PM EDT Gender Identity Not on file Sexual Orientation Not on file Plan of Treatment Health Maintenance Due Date Last Done Comments Pneumococcal Vaccine: 50+ Ye ars (1 of 1 - PCV) 02/29/1992 Diabetes: Hemoglobin A1C 10/12/2020 Diabetes: Ophthalmology Exam 10/12/2020 Diabetes: Pedal Pulse Checked 10/12/2020 Diabetes: Sensory Foot Exam 10/12/2020 Diabetes: Visual Foot Exam 10/12/2020 Influenza Vaccine (#1) 2025 Hepatitis B Vaccine Aged Out No longe r eligible based on patient's age to complete this topic Insurance Medicare [facility] Care Teams Ela Teacher Relationship Specialty Start Date End Date Michaela Arenas MD [address] [address] PCP - General Internal Medicine 10/07/20
--- OUTSIDE RECORDS SUMMARY | 2025-06-06 07:24 | XMS_ITS | Patient Health Record ---
Author Organization - [facility] Address [address] [place] [address] Care Team Providers Care Medical Sociologist Name Role Phone Danni Rodgers Unavailable [phone] JUSTO WATSON Unavailable [phone] BLADE LOPEZ Unavailable [phone] Ni Tanner Unavailable [phone] Allergies No Known Allergies Reason For Referral [...] W/U Status Risk Notes Problem Primary osteoarthritis (297422364) Primary osteoarthritis involving multiple joints (M15.0) Active confirmed Problem Dyslipidemia (328356842) Dyslipidemia (E78.5) Active confirmed Problem Cardiac pacemaker (58488904) Cardiac pacemaker (Z95.0) Active confirmed Problem Mixed incontinence (132296042) Mixed stress and urge urinary incontinence (N39.46) Active confirmed Problem Mild dementia (disorder) (244758199244527) Mild dementia without behavioral disturbance, psychotic disturbance, mood disturbance, or anxiety, unspecified dementia type (F03.A0) Active confirmed Problem History of cerebrovascular accident without residual deficits (789472623) History of CVA (cerebrovascular accident) (Z86.73) Active confirmed Problem Atrial fibrillation (54035158) Atrial fibrillation, unspecified type (I48.91) Active confirmed Problem Anxiety (01687175) Anxiety (F41.9) Active confi rmed Problem History of fall (297085958) History of fall (Z91.81) Active confirmed Problem Type II diabetes mellitus without complication (179190560) Type 2 diabetes mellitus without complication, without long-term current use of insulin (E11.9) Active confirmed Problem Essential hypertension (38092808) Essential hypertension (I10) Active confirmed Vital Signs [...] Encounters Encounter Location Date Provider Diagnosis - [address] [address] 09/27/2024 BLADE LOPEZ Essential hypertensi on I10 [...] Primary osteoarthritis involving multiple joints M15.0 - [address] [address] 10/01/2024 BLADE LOPEZ - [address] [address] 01/01/2025 JUSTO WATSON [address] [address] 02/18/2025 JUSTO WATSON [facility] [address] [address] 10/01/2024 Ni Tanner Assessments Encounter Date Diagnosis [...] Including wearing closed toe shoes with supportive hand grinder, removing rugs from walkways in home, turning [...] Educated on 2 objectives based on the BOOM CAT OPERATOR/RN Care Plan - Caregiver/Membe r voiced understanding for the call and the support. 09/01 line reinforced. Plan Of Treatment No Information Insurance Providers Payer Name Payer Address Payer Phone Subscriber Number Group Number Insured Name Patient Relationship to Insured Coverage Start Date Coverage End Date Medicare of [place] [address] [phone] [id number] Jessica Hubbard Self - patient is the [...]
[2025-06-06 07:41] LABS: Hematocrit 23.2 % (37.0-47.0); Hemoglobin 7.5 g/dl (12.0-16.0); Imm Gran Abs Auto 0.05 X10*3/uL (0.00-0.03); Imm Gran Pct Auto 0.7 % (0.0-0.4); Lymphocytes Absolute Auto 0.5 X10*3/uL (1.2-4.9); Mean Corpuscular HGB Conc 32.3 g/dl (31.0-35.0); Mean Corpuscular Hemoglobin 32.1 pg (27.0-33.0); Mean Corpuscular Volume 99.1 fL (80.0-98.0); NRBC Abs Auto 0.100 X10*3/uL (0.0-0.012); Platelet Count 162 X10*3/uL (160-400); Red Blood Count 2.34 X10*6/uL (4.20-5.50); White Blood Count 6.8 X10*3/uL (4.8-10.8)
[2025-06-06 07:42] LABS: NRBC Pct Auto 1.5 /100WBC (0.0-0.2)
[2025-06-06 08:05] LABS: Alanine Aminotransferase 31 U/L (0-31); Albumin Level 4.0 g/dL (3.5-5.0); Alkaline Phosphatase 141 U/L (39-117); Anion Gap 17 (12-20); Aspartate Amino Transferase 66 U/L (5-31); Blood Urea Nitrogen 42 mg/dL (9-16); Calcium 8.9 mg/dL (8.4-10.2); Carbon Dioxide 23 mmol/L (22-29); Chloride 103 mmol/L (96-108); Estimated Glomerular Filt Rate 58; Potassium 4.2 mmol/L (3.3-5.1); Sodium 139 mmol/L (135-145); Total Protein 6.2 g/dL (6.5-8.0)
[2025-06-06 08:23] LABS: MANUAL DIFF FLAG SCAN
--- OUTSIDE RECORDS SUMMARY | 2025-07-21 19:00 | XMS_ITS | Clinical Summary ---
Author Organization Unknown Care Team Providers Care Ad Clerk Name Role Phone CARL VILLARREALTE, RAMOS Unavailable Jo vailable PENDTAD MOLD STRIPPER, LARISA Unavailable Unavailable FECTEAU WIRE MACHINE CUTTER, PEPITO Unavailable Unavailable MULU RN, RADHA Unavailable Unavailab salvador MCCLAIN PT, HERBIE Unavailable Unavail able READING OT, RANDALL Unavailable Unavailable SIGRID PT, GAIL Unavailable Unavailable Payers Payer Name Policy Type Policy Number Effective Date Expira tion Date MEDICARE.NGS.PDGM [id number] Problems Condition Name Condition Details Condition Category Status Onset Date Resolution Date Last Treatment Date Treating Clinician Comments UNKNOWN DIAGNOSIS Active 03-16 00:00: 00 VASCULAR DEMENTIA, UNSPECIFIED SEVERITY, WITH ANXIETY Active 03-16 00:00: 00 VASCULAR DEMENTIA, UNSPECIFIED SEVERITY, WITH MOOD DISTURB Active 03-16 00:00: 00 IRON DEFICIENCY ANEMIA, UNSPECIFIED Active 03-16 00:00: 00 HYP HRT AND CHR KDNY DIS W HRT FAIL AND STG 1-4/UNSP CHR KDNY Active 03-16 00:00: 00 CHRONIC COMBINED SYSTOLIC AND DIASTOLIC HRT FAIL Active 03-16 00:00: 00 TYPE 2 DIABETES MELLITUS W DIABETIC CHRONIC KIDNEY DISEASE Active 03-16 00:00: 00 CHRONIC KIDNEY DISEASE, STAGE 3 UNSPECIFIED Active 03-16 00:00: 00 ANEMIA IN CHRONIC KIDNEY DISEASE Active 03-16 00:00: 00 TYPE 2 DIABETES MELLITUS WITH DIABETIC NEUROPATHY, UNSP Active 03-16 00:00: 00 MAJOR DEPRESSIVE DISORDER, RECURRENT, IN REMISSION, UNSP Active 03-16 00:00: 00 GENERALIZED ANXIETY DISORDER Active 03-16 00:00: 00 VASCULAR DEMENTIA, UNSP SEVERITY, WITH OTHER BEH DISTURB Active 03-16 00:00: 00 OBSTRUCTIVE SLEEP APNEA (ADULT) (PEDIATRIC) Active 03-16 00:00: 00 NONRHEUMATIC TRICUSPID (VALVE) INSUFFICIENC Y Active 03-16 00:00: 00 SICK SINUS SYNDROME Active 03-16 00:00: 00 UNSPECIFIED ATRIAL FIBRILLATION Active 03-16 00:00: 00 HYPERLIPIDEM IA, UNSPECIFIED Active 03-16 00:00: 00 [facility] (CURRENT) USE OF ANTICOAGULAN TS Active 03-16 00:00: 00 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 Active 03-16 00:00: 00 PRESENCE OF CARDIAC PACEMAKER Active 03-16 00:00: 00 PRESENCE OF RIGHT ARTIFICIAL KNEE JOINT Active 03-16 00:00: 00 PERSONAL HISTORY OF OTHER MALIGNANT NEOPLASM OF SKIN Active 03-16 00:00: 00 PERSONAL HISTORY OF URINARY CALCULI Active 03-16 00:00: 00 Allergies, Adverse Reactions, Alerts Allergy Name Allergy Type Status Severity Reaction(s) Onset Date Inactive Date Treating Clinician Comments ......PENICI LLIN Propensity to adverse reactions Active 2024-06 15:22: 48 ADHESIVE SILK TAPE Propensity to adverse reactions Active 2024-06 15:22: 58 DEMEROL Propensity to adverse reactions Active 2024-06 15:23: 05 LATEX DRESSING Propensity to adverse reactions Active 2024-06 15:23: 12 CLINDAMYCIN Propensity to adverse reactions Active 2024-06 15:23: 36 DONEPEZIL Propensity to adverse reactions Active 2024-06 15:23: 44 IVP DYE, IODINE CONTAINING Propensity to adverse reactions Active 2024-06 15:23: 55 Medications Ordered Medication Name Filled Medication Name Start Date Stop Date Current Medication? Ordering Clinician Indication Dosage Frequency Signature (SIG) Comments Components rivastigmin e 9.5 mg/24 hour transdermal patch 2024-06 00:00: 00 03-25 00:00 :00 No [id number] Per instruc tions Per instructio ns (route: transderma l) Med Classific ation: Cognitive Disorder Therapy warfarin 5 mg tablet 03-11 00:00: 00 Yes [id number] BLOOD THINNER Per instruc tions DAILY Per instructio ns DAILY (route: oral) Med Classific ation: Hematolog ical Agents amiodarone 200 mg tablet 03-10 00:00: 00 Yes [id number] CHF 1 tablet DAILY 1 tablet DAILY (route: oral) Med Classific ation: Cardiovas cular Therapy Agents bupropion HCl XL 300 mg 24 hr tablet, extended release 03-10 00:00: 00 Yes [id number] DEMENTIA 1 tablet DAILY 1 tablet DAILY (route: oral) Med Classific ation: Central Nervous System Agents buspirone 5 mg tablet 03-10 00:00: 00 Yes [id number] ANXIETY 1 tablet 2 TIMES DAILY 1 tablet 2 TIMES DAILY (route: oral) Med Classific ation: Central Nervous System Agents glimepiride 1 mg tablet 03-10 00:00: 00 Yes [id number] DM 1 tablet DAILY 1 tablet DAILY (route: oral) Med Classific ation: Endocrine memantine 21 mg capsule sprinkle,ex tended release 24hr 03-10 00:00: 00 Yes [id number] DEMENTIA 1 capsule DAILY 1 capsule DAILY (route: oral) Med Classific ation: Cognitive Disorder Therapy metformin 1,000 mg tablet 03-10 00:00: 00 Yes [id number] DM 0.5 tablet DAILY 0.5 tablet DAILY (route: oral) Med Classific ation: Endocrine simvastatin 10 mg tablet 03-10 00:00: 00 Yes [id number] HIGH CHOLESTEROL 1 tablet DAILY 1 tablet DAILY (route: oral) Med Classific ation: Cardiovas cular Therapy Agents bumetanide 1 mg tablet 2024-06 00:00: 00 Yes [id number] FLUID RETENTION 0.5 mg DAILY 0.5 mg DAILY (route: oral) Med Classific ation: Cardiovas cular Therapy Agents Fish Oil 1,000 mg (120 mg-180 mg) capsule 2024-06 00:00: 00 Yes [id number] HEART 1 capsule 2 TIMES DAILY 1 capsule 2 TIMES DAILY (route: oral) Med Classific ation: Cardiovas cular Therapy Agents acetaminoph en 325 mg tablet 2024-06 008 00:00: 00 Yes [id number] pain 2 tablet EVERY 6 HOURS 2 tablet EVERY 6 HOURS (route: oral) Med Classific ation: Analgesic , Anti-infl ammatory or Antipyret ic Vital Signs Vital Name Observation Time Observation Value Commen ts Temperature 2025-05-30 16:45:00.000 98.3 [degF] Temperature 2025-05-30 12:27:00.000 98 [degF] Temperature 2025-05-26 10:50:00.000 97.9 [degF] Pulse 2025-05-30 16:45:00.000 74 /min Pulse 2025-05-30 12:27:00.000 60 /min Pulse 2025-05-27 09:41:00.000 60 /min Pulse 2025-05-26 10:50:00.000 68 /min O2 Saturation (%) 2025-05-30 12:27:00.000 98 % O2 Saturation (%) 2025-05-27 09:41:00.000 97 % O2 Saturation (%) 2025-05-26 10:50:00.000 97 % Respirations 2025-05-30 16:45:00.000 18 /min Respirations 2025-05-30 12:27:00.000 18 /min Respirations 2025-05-27 09:41:00.000 18 /min Respirations 2025-05-26 10:50:00.000 18 /min Weight (lbs) 2025-05-30 16:55:00.000 131 [lb_av] Weight (lbs) 2025-05-30 12:27:00.000 131 [lb_av] Weight (lbs) 2025-05-27 09:41:00.000 131.6 [lb_av] Weight (lbs) 2025-05-26 10:50:00.000 130 [lb_av] Systolic Blood Pressure 2025-05-30 16:45:00.000 122 mm [Hg] Systolic Blood Pressure 2025-05-30 12:27:00.000 130 mm [Hg] Systolic Blood Pressure 2025-05-27 09:41:00.000 121 mm [Hg] Systolic Blood Pressure 2025-05-26 10:50:00.000 122 mm [Hg] Diastolic Blood Pressure 2025-05-30 16:45:00.000 68 mm [Hg] Diastolic Blood Pressure 2025-05-30 12:27:00.000 62 mm [Hg] Diastolic Blood Pressure 2025-05-27 09:41:00.000 69 mm [Hg] Diastolic Blood Pressure 2025-05-26 10:50:00.000 64 mm [Hg] Plan of Treatment Planned Activity Planned Date Details Comments Future Scheduled Test RN TO OBSE RVE, ASSESS, EVALUATE, AND DEVELOP AN INDIVIDUALIZED PLAN OF CARE. AGENCY MAY ACCEPT ORDERS FROM CONSULTING PHYSICIANS. RN TO OBSERVE AND ASSESS, MOLD STRIPPER/CONTINUOUS LOFT OPERATOR TO OBSERVE FOR RISK FOR FALLS AND INSTRUCT IN FALL PREVENTION, HOME SAFETY, MEDICATION MANAGEMENT, INFECTION PREVENTION, AND NUTRITION MANAGEMENT. RN/MOLD STRIPPER/CONTINUOUS LOFT OPERATOR NURSE MAY PERFORM O2 SATURATION LEVEL ON ADMISSION AND PRN FOR RN TO ASSESS/MOLD STRIPPER TO OBSERVE PATIENT, WITH NOTIFICATION TO THE PHYSICIAN IF SATURATION IS 90% IN THE ABSENCE OF MORE SPECIFIC PARAMETERS FROM THE PHYSICIAN. AGENCY MAY PERFORM A RESUMPTION OF CARE VISIT FOLLOWING ANY HOSPITAL ADMISSION. RN/MOLD STRIPPER/CONTINUOUS LOFT OPERATOR TO MONITOR CO-MORBID CONDITIONS LISTED ON THE PLAN OF CARE AND ANY NEW CONDITIONS THAT PRESENT THEMSELVES DURING THIS EPISODE TO IDENTIFY CHANGES AND INTERVENE TO MINIMIZE COMPLICATIONS. [code = RN TO OBSERVE, ASSESS, EVALUATE, AND DEVELOP AN INDIVIDUALIZED PLAN OF CARE. AGENCY MAY ACCEPT ORDERS FROM CONSULTING PHYSICIANS. RN TO OBSERVE AND ASSESS, MOLD STRIPPER/CONTINUOUS LOFT OPERATOR TO OBSERVE FOR RISK FOR FALLS AND INSTRUCT IN FALL PREVENTION, HOME SAFETY, MEDICATION MANAGEMENT, INFECTION PREVENTION, AND NUTRITION MANAGEMENT. RN/MOLD STRIPPER/CONTINUOUS LOFT OPERATOR NURSE MAY PERFORM O2 SATURATION LEVEL ON ADMISSION AND PRN FOR RN TO ASSESS/MOLD STRIPPER TO OBSERVE PATIENT, WITH NOTIFICATION TO THE PHYSICIAN IF SATURATION IS 90% IN THE ABSENCE OF MORE SPECIFIC PARAMETERS FROM THE PHYSICIAN. AGENCY MAY PERFORM A RESUMPTION OF CARE VISIT FOLLOWING ANY HOSPITAL ADMISSION. RN/MOLD STRIPPER/CONTINUOUS LOFT OPERATOR TO MONITOR CO-MORBID CONDITIONS LISTED ON THE PLAN OF CARE AND ANY NEW CONDITIONS THAT PRESENT THEMSELVES DURING THIS EPISODE TO IDENTIFY CHANGES AND INTERVENE TO MINIMIZE COMPLICATIONS.] Future Scheduled Test MEDICATION MANAGEMENT; RN/MOLD STRIPPER/CONTINUOUS LOFT OPERATOR TO REVIEW MEDICATIONS FOR INTERACTIONS, EFFECTIVENESS OF DRUG THERAPY, AND SIGNS/SYMPTOMS OF ADVERSE REACTIONS. MAY INSTRUCT AND REINFORCE MEDICATION TEACHING RELATED TO THE USE OF MEDICATIONS, DOSAGE, FREQUENCY, PURPOSE, SIDE EFFECTS, AND TO REPORT COMPLICATIONS. [code = MEDICATION MANAGEMENT; RN/MOLD STRIPPER/CONTINUOUS LOFT OPERATOR TO REVIEW MEDICATIONS FOR INTERACTIONS, EFFECTIVENESS OF DRUG THERAPY, AND SIGNS/SYMPTOMS OF ADVERSE REACTIONS. MAY INSTRUCT AND REINFORCE MEDICATION TEACHING RELATED TO THE USE OF MEDICATIONS, DOSAGE, FREQUENCY, PURPOSE, SIDE EFFECTS, AND TO REPORT COMPLICATIONS.] Future Scheduled Test RISK FOR H OSPITALIZATION; RN TO ASSESS/TEACH, CONTINUOUS LOFT OPERATOR/MOLD STRIPPER TO OBSERVE/TEACH PATIENT/CAREGIVER ON RISK FOR HOSPITALIZATION/EMERGENCY ROOM VISITS, TEACH SIGNS AND SYMPTOMS THAT PUT PATIENT AT RISK, WHEN TO NOTIFY NURSE/PHYSICIAN OF COMPLICATIONS/DECLINE, AND WHEN TO CALL 911. [code = RISK FOR HOSPITALIZATION; RN TO ASSESS/TEACH, CONTINUOUS LOFT OPERATOR/MOLD STRIPPER TO OBSERVE/TEACH PATIENT/CAREGIVER ON RISK FOR HOSPITALIZATION/EMERGENCY ROOM VISITS, TEACH SIGNS AND SYMPTOMS THAT PUT PATIENT AT RISK, WHEN TO NOTIFY NURSE/PHYSICIAN OF COMPLICATIONS/DECLINE, AND WHEN TO CALL 911.] Future Scheduled Test CARDIOVASC ULAR SYSTEM; RN TO ASSESS/TEACH, MOLD STRIPPER/CONTINUOUS LOFT OPERATOR TO OBSERVE/TEACH RELATED TO ALTERED CARDIOVASCULAR STATUS TO MINIMIZE COMPLICATIONS AND REDUCE HOSPITALIZATION. [code = CARDIOVASCULAR SYSTEM; RN TO ASSESS/TEACH, MOLD STRIPPER/CONTINUOUS LOFT OPERATOR TO OBSERVE/TEACH RELATED TO ALTERED CARDIOVASCULAR STATUS TO MINIMIZE COMPLICATIONS AND REDUCE HOSPITALIZATION.] Future Scheduled Test HEART FAIL URE; RN TO ASSESS/TEACH, MOLD STRIPPER/CONTINUOUS LOFT OPERATOR TO OBSERVE/TEACH CARDIOPULMONARY SYSTEM TO IDENTIFY SIGNS OF DECOMPENSATION AND INTERVENE TO MINIMIZE THE SEVERITY OF FLUID OVERLOAD. OBSERVE PATIENT ABILITY TO MONITOR AND RECORD DAILY WEIGHTS AND VITAL SIGNS, INCLUDING PULSE AND BLOOD PRESSURE; RECORD PATIENT REPORTED WEIGHT, OR WEIGH PATIENT NEEDED. REPORT INCREASED EDEMA OR WEIGHT GAIN OF >2 LBS IN 1 DAY OR >5 LBS IN 1 WEEK OR 5LBS OR MORE OVER TARGET WEIGHT. [code = HEART FAILURE; RN TO ASSESS/TEACH, MOLD STRIPPER/CONTINUOUS LOFT OPERATOR TO OBSERVE/TEACH CARDIOPULMONARY SYSTEM TO IDENTIFY SIGNS OF DECOMPENSATION AND INTERVENE TO MINIMIZE THE SEVERITY OF FLUID OVERLOAD. OBSERVE PATIENT ABILITY TO MONITOR AND RECORD DAILY WEIGHTS AND VITAL SIGNS, INCLUDING PULSE AND BLOOD PRESSURE; RECORD PATIENT REPORTED WEIGHT, OR WEIGH PATIENT NEEDED. REPORT INCREASED EDEMA OR WEIGHT GAIN OF >2 LBS IN 1 DAY OR >5 LBS IN 1 WEEK OR 5LBS OR MORE OVER TARGET WEIGHT.] Future Scheduled Test ARRHYTHMIA MANAGEMENT; RN TO ASSESS AND TEACH, MOLD STRIPPER/CONTINUOUS LOFT OPERATOR TO OBSERVE AND TEACH WARNING SIGNS AND SYMPTOMS TO AVOID HOSPITALIZATION. [code = ARRHYTHMIA MANAGEMENT; RN TO ASSESS AND TEACH, MOLD STRIPPER/CONTINUOUS LOFT OPERATOR TO OBSERVE AND TEACH WARNING SIGNS AND SYMPTOMS TO AVOID HOSPITALIZATION.] Future Scheduled Test SKIN INTEG RITY RN TO ASSESS AND TEACH, MOLD STRIPPER/CONTINUOUS LOFT OPERATOR TO OBSERVE AND TEACH INTEGUMENTARY STATUS TO IDENTIFY CHANGES AND INTERVENE TO MINIMIZE COMPLICATIONS. PROVIDE SKILLED TEACHING OF GENERAL WOUND AND SKIN CARE AND PREVENTION RELATED TO ACTUAL ALTERED SKIN INTEGRITY [code = SKIN INTEGRITY RN TO ASSESS AND TEACH, MOLD STRIPPER/CONTINUOUS LOFT OPERATOR TO OBSERVE AND TEACH INTEGUMENTARY STATUS TO IDENTIFY CHANGES AND INTERVENE TO MINIMIZE COMPLICATIONS. PROVIDE SKILLED TEACHING OF GENERAL WOUND AND SKIN CARE AND PREVENTION RELATED TO ACTUAL ALTERED SKIN INTEGRITY] Future Scheduled Test RN/MOLD STRIPPER/CONTINUOUS LOFT OPERATOR TO PERFORM/TEACH PATIENT/CAREGIVER WOUND CARE TO BLOOD BLISTER TO RIGHT LATERAL CALF: CLEANSE WITH NORMAL SALINE, APPLY PROTECTIVE FOAM DRESSING CHANGE DRESSING WEEKLY AND PRN FOR SOILAGE OR DISPLACEMENT RN/MOLD STRIPPER/CONTINUOUS LOFT OPERATOR TO PERFORM/TEACH PATIENT/CAREGIVER WOUND CARE TO BLOOD BLISTER TO LEFT SCALP CLEANSE WITH NORMAL SALINE, MONITOR FOR CHANGES IN SIZE, COLOR OR TURGOR, REPORT TO PRIMARY CARE [code = RN/MOLD STRIPPER/CONTINUOUS LOFT OPERATOR TO PERFORM/TEACH PATIENT/CAREGIVER WOUND CARE TO BLOOD BLISTER TO RIGHT LATERAL CALF: CLEANSE WITH NORMAL SALINE, APPLY PROTECTIVE FOAM DRESSING CHANGE DRESSING WEEKLY AND PRN FOR SOILAGE OR DISPLACEMENT RN/MOLD STRIPPER/CONTINUOUS LOFT OPERATOR TO PERFORM/TEACH PATIENT/CAREGIVER WOUND CARE TO BLOOD BLISTER TO LEFT SCALP CLEANSE WITH NORMAL SALINE, MONITOR FOR CHANGES IN SIZE, COLOR OR TURGOR, REPORT TO PRIMARY CARE] Future Scheduled Test PAIN MANAG EMENT; RN TO ASSESS AND TEACH, CONTINUOUS LOFT OPERATOR/MOLD STRIPPER TO OBSERVE AND TEACH AND PROVIDE EDUCATION ON PAIN MANAGEMENT TECHNIQUES. [code = PAIN MANAGEMENT; RN TO ASSESS AND TEACH, CONTINUOUS LOFT OPERATOR/MOLD STRIPPER TO OBSERVE AND TEACH AND PROVIDE EDUCATION ON PAIN MANAGEMENT TECHNIQUES.] Future Scheduled Test FALL REDUC TION MANAGEMENT; RN TO ASSESS AND OBSERVE, MOLD STRIPPER/CONTINUOUS LOFT OPERATOR TO OBSERVE FALL RISK FACTORS AND EDUCATE PATIENT/CAREGIVER ON STRATEGIES TO MINIMIZE THE RISK OF FALLING. [code = FALL REDUCTION MANAGEMENT; RN TO ASSESS AND OBSERVE, MOLD STRIPPER/CONTINUOUS LOFT OPERATOR TO OBSERVE FALL RISK FACTORS AND EDUCATE PATIENT/CAREGIVER ON STRATEGIES TO MINIMIZE THE RISK OF FALLING.] Future Scheduled Test DIABETES M ONITORING RN/CONTINUOUS LOFT OPERATOR/MOLD STRIPPER TO MONITOR BLOOD SUGAR LOG FOR BLOOD SUGAR READINGS THAT ARE BEING CHECKED BY CAREGIVER DAILY. PATIENT THERAPEUTIC BLOOD SUGAR PARAMETERS ARE 80 - 200. REPORT BLOOD SUGARS OUT OF RANGE TO PHYSICIAN. NURSE MAY PERFORM FINGER STICK BLOOD GLUCOSE NEEDED FOR SIGNS AND SYMPTOMS OF HYPO AND HYPERGLYCEMIA. RN/CONTINUOUS LOFT OPERATOR/MOLD STRIPPER TO MONITOR ADHERENCE OF CAREGIVER PERFORMING DIABETIC FOOT CARE AND MAY PERFORM DIABETIC FOOT CARE PRN. RN/CONTINUOUS LOFT OPERATOR/MOLD STRIPPER TO MONITOR FOR ADHERENCE TO DIABETIC SELF-CARE AND MANAGEMENT INCLUDING MEDICATIONS. [code = DIABETES MONITORING RN/CONTINUOUS LOFT OPERATOR/MOLD STRIPPER TO MONITOR BLOOD SUGAR LOG FOR BLOOD SUGAR READINGS THAT ARE BEING CHECKED BY CAREGIVER DAILY. PATIENT THERAPEUTIC BLOOD SUGAR PARAMETERS ARE 80 - 200. REPORT BLOOD SUGARS OUT OF RANGE TO PHYSICIAN. NURSE MAY PERFORM FINGER STICK BLOOD GLUCOSE NEEDED FOR SIGNS AND SYMPTOMS OF HYPO AND HYPERGLYCEMIA. RN/CONTINUOUS LOFT OPERATOR/MOLD STRIPPER TO MONITOR ADHERENCE OF CAREGIVER PERFORMING DIABETIC FOOT CARE AND MAY PERFORM DIABETIC FOOT CARE PRN. RN/CONTINUOUS LOFT OPERATOR/MOLD STRIPPER TO MONITOR FOR ADHERENCE TO DIABETIC SELF-CARE AND MANAGEMENT INCLUDING MEDICATIONS.] Future Scheduled Test GENITOURIN MAICOL MANAGEMENT; RN TO ASSESS AND TEACH, MOLD STRIPPER/CONTINUOUS LOFT OPERATOR TO OBSERVE AND TEACH RELATED TO ALTERED GENITOURINARY STATUS TO MINIMIZE COMPLICATIONS AND REDUCE HOSPITALIZATION. [code = GENITOURINARY MANAGEMENT; RN TO ASSESS AND TEACH, MOLD STRIPPER/CONTINUOUS LOFT OPERATOR TO OBSERVE AND TEACH RELATED TO ALTERED GENITOURINARY STATUS TO MINIMIZE COMPLICATIONS AND REDUCE HOSPITALIZATION.] Future Scheduled Test URINARY TR ACT INFECTION MANAGEMENT; RN/CONTINUOUS LOFT OPERATOR/MOLD STRIPPER TO PROVIDE SKILLED TEACHING AND SELF- CARE MANAGEMENT RELATED TO UTI TO MINIMIZE COMPLICATIONS AND REDUCE THE RISK OF HOSPITALIZATION. [code = URINARY TRACT INFECTION MANAGEMENT; RN/CONTINUOUS LOFT OPERATOR/MOLD STRIPPER TO PROVIDE SKILLED TEACHING AND SELF- CARE MANAGEMENT RELATED TO UTI TO MINIMIZE COMPLICATIONS AND REDUCE THE RISK OF HOSPITALIZATION.] Future Scheduled Test URINARY MO LECULAR TESTING PROTOCOL UP TO 2 PRN RN/MOLD STRIPPER/CONTINUOUS LOFT OPERATOR VISITS MAY BE PERFORMED FOR S/S OF UTI. RN TO ASSESS, MOLD STRIPPER/CONTINUOUS LOFT OPERATOR TO OBSERVE INITIATION OF UTI PROTOCOL. RN/CONTINUOUS LOFT OPERATOR/MOLD STRIPPER TO INSTRUCT PATIENT AND/OR CAREGIVER ON S/S OF UTI TO REPORT TO RN/CONTINUOUS LOFT OPERATOR/MOLD STRIPPER IF NEW OR WORSENING SYMPTOMS. DRINK PLENTY OF WATER THROUGHOUT THE DAY TO MAINTAIN HYDRATION (UNLESS CONTRAINDICATED.) URINATE WHEN THE URGE IS FELT, DO NOT WAIT. WASH GENITALS DAILY. WIPE FROM FRONT TO BACK AFTER HAVING A BOWEL MOVEMENT. RN/CONTINUOUS LOFT OPERATOR/MOLD STRIPPER TO OBTAIN URINE SPECIMEN FOR MOLECULAR URINE TESTING BY RN/CONTINUOUS LOFT OPERATOR/MOLD STRIPPER TO OBTAIN URINE SPECIMEN FOR U/A WITH REFLEX TO UTI PANEL (MOLECULAR) VIA CLEAN CATCH URINE AND IF UNABLE TO OBTAIN MAY PERFORM AN IN AND OUT CATH. IF PATIENT HAS INDWELLING CATHETER MAY OBTAIN FROM SAMPLING PORT. INCLUDE ANTIBIOTIC/ANTIFUNGAL RESISTANCE TESTING INCLUDE URINALYSIS (ONLY FOR CLEAN CATCH/ IN AND OUT CATH) NOTIFY PROVIDER OF RESULTS AND OBTAIN FURTHER ORDERS. [code = URINARY MOLECULAR TESTING PROTOCOL UP TO 2 PRN RN/MOLD STRIPPER/CONTINUOUS LOFT OPERATOR VISITS MAY BE PERFORMED FOR S/S OF UTI. RN TO ASSESS, MOLD STRIPPER/CONTINUOUS LOFT OPERATOR TO OBSERVE INITIATION OF UTI PROTOCOL. RN/CONTINUOUS LOFT OPERATOR/MOLD STRIPPER TO INSTRUCT PATIENT AND/OR CAREGIVER ON S/S OF UTI TO REPORT TO RN/CONTINUOUS LOFT OPERATOR/MOLD STRIPPER IF NEW OR WORSENING SYMPTOMS. DRINK PLENTY OF WATER THROUGHOUT THE DAY TO MAINTAIN HYDRATION (UNLESS CONTRAINDICATED.) URINATE WHEN THE URGE IS FELT, DO NOT WAIT. WASH GENITALS DAILY. WIPE FROM FRONT TO BACK AFTER HAVING A BOWEL MOVEMENT. RN/CONTINUOUS LOFT OPERATOR/MOLD STRIPPER TO OBTAIN URINE SPECIMEN FOR MOLECULAR URINE TESTING BY RN/CONTINUOUS LOFT OPERATOR/MOLD STRIPPER TO OBTAIN URINE SPECIMEN FOR U/A WITH REFLEX TO UTI PANEL (MOLECULAR) VIA CLEAN CATCH URINE AND IF UNABLE TO OBTAIN MAY PERFORM AN IN AND OUT CATH. IF PATIENT HAS INDWELLING CATHETER MAY OBTAIN FROM SAMPLING PORT. INCLUDE ANTIBIOTIC/ANTIFUNGAL RESISTANCE TESTING INCLUDE URINALYSIS (ONLY FOR CLEAN CATCH/ IN AND OUT CATH) NOTIFY PROVIDER OF RESULTS AND OBTAIN FURTHER ORDERS.] Future Scheduled Test PRN VISITS ; NUMBER OF RN/MOLD STRIPPER/CONTINUOUS LOFT OPERATOR VISITS: 2 RN/MOLD STRIPPER/CONTINUOUS LOFT OPERATOR TO PERFORM: INR/URINARY MANAGEMENT FOR THE FOLLOWING REASONS: UTI, UNSTABLE INR [code = PRN VISITS; NUMBER OF RN/MOLD STRIPPER/CONTINUOUS LOFT OPERATOR VISITS: 2 RN/MOLD STRIPPER/CONTINUOUS LOFT OPERATOR TO PERFORM: INR/URINARY MANAGEMENT FOR THE FOLLOWING REASONS: UTI, UNSTABLE INR] Future Scheduled Test AGENCY MAY PERFORM A RESUMPTION OF CARE VISIT FOLLOWING ANY HOSPITAL ADMISSION. OT TO EVALUATE, OBSERVE / ASSESS, AND MONITOR, JESS TO OBSERVE AND MONITOR, PROVIDE SKILLED THERAPEUTIC INTERVENTION, ACTIVITY, EDUCATION, AND TRAINING TO ADDRESS; BATHING/SHOWERING (OT/KITCHEN FOOD SERVER) CHAIR TRANSFERS (OT/JESS) TOILET TRANSFER (OT/KITCHEN FOOD SERVER) BATH/SHOWER TRANSFER (OT/JESS) FLOOR RECOVERY (OT/JESS) POSTURAL CONTROL/BALANCE (OT/KITCHEN FOOD SERVER) THERAPEUTIC EXERCISE (OT/KITCHEN FOOD SERVER) OT TO ASSESS / JESS TO MONITOR FOR HEART FAILURE EXACERBATION AND RECORD PATIENT REPORTED WEIGHT, AND NOTIFY THE PHYSICIAN AND/OR THE RN CLINICAL LIFESTYLE CONSULTANT FOR PHYSICIAN NOTIFICATION OF HF EXACERBATION (2LB WEIGHT GAIN IN 1 DAY, 5LBS IN A WEEK OR 5 LBS OVER BASELINE; INCREASED SOB, EDEMA, NEEDING MORE PILLOWS AT NIGHT, CRACKLES IN BASIS OF THE LUNGS OR PMI SHIFT). OT/KITCHEN FOOD SERVER TO MONITOR FOR AND REPORT EARLY SIGNS OF ANTICOAGULANT TOXICITY TO THE PHYSICIAN AND/OR THE RN CLINICAL LIFESTYLE CONSULTANT FOR PHYSICIAN NOTIFICATION AND TO PROVIDE PATIENT/CAREGIVER EDUCATION ON ANTICOAGULANT THERAPY OT/KITCHEN FOOD SERVER TO MONITOR AND EDUCATE ON OXYGEN SATURATION DURING ADLS/IADLS, NOTIFY PHYSICIAN AND/OR THE RN CLINICAL LIFESTYLE CONSULTANT FOR PHYSICIAN NOTIFICATION AND IF O2 SATS BELOW 90% AFTER 10 MIN OF REST. OT/JESS MAY EDUCATE ON PAIN MANAGEMENT CLINICALLY INDICATED. OT / KITCHEN FOOD SERVER TO IDENTIFY FALL RISK FACTORS; EDUCATE THE PATIENT/CAREGIVER ON WAYS TO REDUCE FALL RISK FACTORS AND ESTABLISH HOME EXERCISE PROGRAM TO MINIMIZE FALL RISK. MAY TEACH THE PATIENT FLOOR RECOVERY WHEN CLINICALLY APPROPRIATE. [code = AGENCY MAY PERFORM A RESUMPTION OF CARE VISIT FOLLOWING ANY HOSPITAL ADMISSION. OT TO EVALUATE, OBSERVE / ASSESS, AND MONITOR, KITCHEN FOOD SERVER TO OBSERVE AND MONITOR, PROVIDE SKILLED THERAPEUTIC INTERVENTION, ACTIVITY, EDUCATION, AND TRAINING TO ADDRESS; BATHING/SHOWERING (OT/JESS) CHAIR TRANSFERS (OT/KITCHEN FOOD SERVER) TOILET TRANSFER (OT/KITCHEN FOOD SERVER) BATH/SHOWER TRANSFER (OT/JESS) FLOOR RECOVERY (OT/JESS) POSTURAL CONTROL/BALANCE (OT/KITCHEN FOOD SERVER) THERAPEUTIC EXERCISE (OT/KITCHEN FOOD SERVER) OT TO ASSESS / JESS TO MONITOR FOR HEART FAILURE EXACERBATION AND RECORD PATIENT REPORTED WEIGHT, AND NOTIFY THE PHYSICIAN AND/OR THE RN CLINICAL LIFESTYLE CONSULTANT FOR PHYSICIAN NOTIFICATION OF HF EXACERBATION (2LB WEIGHT GAIN IN 1 DAY, 5LBS IN A WEEK OR 5 LBS OVER BASELINE; INCREASED SOB, EDEMA, NEEDING MORE PILLOWS AT NIGHT, CRACKLES IN BASIS OF THE LUNGS OR PMI SHIFT). OT/JESS TO MONITOR FOR AND REPORT EARLY SIGNS OF ANTICOAGULANT TOXICITY TO THE PHYSICIAN AND/OR THE RN CLINICAL LIFESTYLE CONSULTANT FOR PHYSICIAN NOTIFICATION AND TO PROVIDE PATIENT/CAREGIVER EDUCATION ON ANTICOAGULANT THERAPY OT/JESS TO MONITOR AND EDUCATE ON OXYGEN SATURATION DURING ADLS/IADLS, NOTIFY PHYSICIAN AND/OR THE RN CLINICAL LIFESTYLE CONSULTANT FOR PHYSICIAN NOTIFICATION AND IF O2 SATS BELOW 90% AFTER 10 MIN OF REST. OT/KITCHEN FOOD SERVER MAY EDUCATE ON PAIN MANAGEMENT CLINICALLY INDICATED. OT / KITCHEN FOOD SERVER TO IDENTIFY FALL RISK FACTORS; EDUCATE THE PATIENT/CAREGIVER ON WAYS TO REDUCE FALL RISK FACTORS AND ESTABLISH HOME EXERCISE PROGRAM TO MINIMIZE FALL RISK. MAY TEACH THE PATIENT FLOOR RECOVERY WHEN CLINICALLY APPROPRIATE.] Future Scheduled Test AGENCY MAY PERFORM A RESUMPTION OF CARE VISIT FOLLOWING ANY HOSPITAL ADMISSION. PT TO EVALUATE, OBSERVE / ASSESS, AND MONITOR, WIRE MACHINE CUTTER TO OBSERVE AND MONITOR, PROVIDE SKILLED THERAPEUTIC INTERVENTION, ACTIVITY, EDUCATION, AND TRAINING TO ADDRESS; PT/WIRE MACHINE CUTTER TO PROVIDE GAIT TRAINING FOR IMPROVED MOBILITY AND /OR TO NORMALIZE GAIT PATTERN NEUROMUSCULAR RE-EDUCATION / BALANCE / POSTURAL CONTROL (PT) THERAPEUTIC EXERCISES AND ESTABLISHING A HOME EXERCISE PROGRAM (PT/WIRE MACHINE CUTTER) FLOOR RECOVERY (PT/WIRE MACHINE CUTTER) SIT TO/FROM STAND TRANSFERS (PT/WIRE MACHINE CUTTER) PT / WIRE MACHINE CUTTER TO MONITOR AND EDUCATE ON OXYGEN SATURATION DURING ADLS/IADLS, NOTIFY PHYSICIAN AND/OR THE RN CLINICAL LIFESTYLE CONSULTANT FOR PHYSICIAN NOTIFICATION AND IF O2 SATS BELOW PHYSICIAN ORDERED PARAMETERS AFTER 10 MIN OF REST PT / WIRE MACHINE CUTTER MAY EDUCATE ON PAIN MANAGEMENT CLINICALLY INDICATED, INCLUDING NON-PHARMACOLOGICAL PAIN REDUCTION TECHNIQUES AND USE OF CRYOTHERAPY OR HEAT UP TO 20 MIN AT A TIME FOR PAIN MANAGEMENT 3-5 TIMES PER DAY TO LE/KNEES PT/WIRE MACHINE CUTTER TO IDENTIFY FALL RISK FACTORS; EDUCATE THE PATIENT/CAREGIVER ON WAYS TO REDUCE FALL RISK FACTORS AND ESTABLISH HOME EXERCISE PROGRAM TO MINIMIZE FALL RISK. MAY TEACH THE PATIENT FLOOR RECOVERY WHEN CLINICALLY APPROPRIATE PT / WIRE MACHINE CUTTER TO EDUCATE ON HEART FAILURE SELF-MANAGEMENT [code = AGENCY MAY PERFORM A RESUMPTION OF CARE VISIT FOLLOWING ANY HOSPITAL ADMISSION. PT TO EVALUATE, OBSERVE / ASSESS, AND MONITOR, WIRE MACHINE CUTTER TO OBSERVE AND MONITOR, PROVIDE SKILLED THERAPEUTIC INTERVENTION, ACTIVITY, EDUCATION, AND TRAINING TO ADDRESS; PT/WIRE MACHINE CUTTER TO PROVIDE GAIT TRAINING FOR IMPROVED MOBILITY AND /OR TO NORMALIZE GAIT PATTERN NEUROMUSCULAR RE-EDUCATION / BALANCE / POSTURAL CONTROL (PT) THERAPEUTIC EXERCISES AND ESTABLISHING A HOME EXERCISE PROGRAM (PT/WIRE MACHINE CUTTER) FLOOR RECOVERY (PT/WIRE MACHINE CUTTER) SIT TO/FROM STAND TRANSFERS (PT/WIRE MACHINE CUTTER) PT / WIRE MACHINE CUTTER TO MONITOR AND EDUCATE ON OXYGEN SATURATION DURING ADLS/IADLS, NOTIFY PHYSICIAN AND/OR THE RN CLINICAL LIFESTYLE CONSULTANT FOR PHYSICIAN NOTIFICATION AND IF O2 SATS BELOW PHYSICIAN ORDERED PARAMETERS AFTER 10 MIN OF REST PT / WIRE MACHINE CUTTER MAY EDUCATE ON PAIN MANAGEMENT CLINICALLY INDICATED, INCLUDING NON-PHARMACOLOGICAL PAIN REDUCTION TECHNIQUES AND USE OF CRYOTHERAPY OR HEAT UP TO 20 MIN AT A TIME FOR PAIN MANAGEMENT 3-5 TIMES PER DAY TO LE/KNEES PT/WIRE MACHINE CUTTER TO IDENTIFY FALL RISK FACTORS; EDUCATE THE PATIENT/CAREGIVER ON WAYS TO REDUCE FALL RISK FACTORS AND ESTABLISH HOME EXERCISE PROGRAM TO MINIMIZE FALL RISK. MAY TEACH THE PATIENT FLOOR RECOVERY WHEN CLINICALLY APPROPRIATE PT / WIRE MACHINE CUTTER TO EDUCATE ON HEART FAILURE SELF-MANAGEMENT] Goal 2025-05-22 Patient Goal - NOT FALL Goal Patient Goal - N OT FALL, GET BETTER FROM UTI, GET INR IN CONTROL Goal Provider Goal - A PLAN OF CARE WILL BE ESTABLISHED THAT MEETS THE PATIENT S NEEDS. PATIENT WILL DEMONSTRATE OXYGEN SATURATION WITHIN NORMAL LIMITS OR PATIENT S OPTIMAL LEVEL ESTABLISHED BY THE PHYSICIAN THROUGHOUT CARE. CHANGES TO CO-MORBID CONDITIONS AND ANY NEW CONDITIONS WILL BE IDENTIFIED AND REPORTED TO THE PHYSICIAN. Goal Provider Goal - PATIENT/CAREGIVER TO VERBALIZE, AND CONSISTENTLY DEMONSTRATE EFFECTIVE, SAFE MANAGEMENT OF MEDICATION INCLUDING KNOWLEDGE OF EFFECTIVENESS, POTENTIAL SIDE EFFECTS AND DRUG REACTIONS AND WHEN TO CONTACT THE APPROPRIATE CARE PROVIDER. PATIENT/CAREGIVER WILL BE ABLE TO VERBALIZE UNDERSTANDING OF MEDICATION REGIMEN AND ACCURATELY TAKE MEDICATIONS PRESCRIBED WITHOUT ADVERSE EFFECTS BY EOE Goal Provider Goal - PATIENT/CAREGIVER WILL VERBALIZE UNDERSTANDING OF SIGNS AND SYMPTOMS THAT PUT THE PATIENT AT RISK FOR HOSPITALIZATION /EMERGENCY ROOM VISITS, WHEN TO NOTIFY NURSE/PHYSICIAN OF COMPLICATIONS/DECLINE AND WHEN TO CALL 911. Goal Provider Goal - PATIENT / CAREGIVER WILL VERBALIZE/DEMONSTRATE UNDERSTANDING OF MEASURES TO MANAGE ALTERED CARDIOVASCULAR STATUS BY EOE Goal Provider Goal - PATIENT / CAREGIVER WILL VERBALIZE/DEMONSTRATE AN ABILITY TO ADHERE TO SELF-MANAGEMENT OF HF TO MINIMIZE COMPLICATIONS AND AVOID HOSPITALIZATION BY END OF EPISODE. Goal Provider Goal - PATIENT / CAREGIVER WILL VERBALIZE/DEMONSTRATE AN ABILITY TO ADHERE TO SELF-MANAGEMENT OF HEART ARRHYTHMIA TO MINIMIZE COMPLICATIONS AND AVOID HOSPITALIZATION BY END OF EPISODE. Goal Provider Goal - CHANGES IN SKIN INTEGRITY STATUS WILL BE IDENTIFIED AND REPORTED TO THE PHYSICIAN FOR PROMPT INTERVENTION. PATIENT / CAREGIVER WILL VERBALIZE/DEMONSTRATE ADEQUATE KNOWLEDGE OF INTEGUMENTARY STATUS AND APPROPRIATE MEASURES TO PROMOTE SKIN INTEGRITY AND PREVENT INJURY BY EOE Goal Provider Goal - PATIENT / CAREGIVER WILL VERBALIZE/DEMONSTRATE ABILITY TO PERFORM WOUND CARE. WOUND STATUS WILL IMPROVE EVIDENCED BY A DECREASE IN SIZE, DRAINAGE, ABSENCE OF INFECTION, AND DECREASED PAIN BY EOE Goal Provider Goal - PATIENT / CAREGIVER WILL VERBALIZE / DEMONSTRATE UNDERSTANDING OF PAIN CONTROL MEASURES BY EOE Goal Provider Goal - PATIENT/CAREGIVER WILL VERBALIZE/DEMONSTRATE UNDERSTANDING OF FALL RISK FACTORS AND IMPLEMENT STRATEGIES TO MINIMIZE FALL RISK. PATIENT/CAREGIVER WILL VERBALIZE/DEMONSTRATE AN ABILITY TO ADHERE TO FALL REDUCTION SELF-MANAGEMENT AND LIFE-STYLE CHANGES BY EOE Goal Provider Goal - BLOOD SUGARS WILL REMAIN WITHIN ESTABLISHED RANGES AND DIABETES CONTROLLED THROUGHOUT EPISODE. Goal Provider Goal - PATIENT / CAREGIVER WILL VERBALIZE/DEMONSTRATE UNDERSTANDING OF MEASURES TO MANAGE ALTERED GENITOURINARY STATUS BY END OF EPISODE. Goal Provider Goal - PATIENT/CAREGIVER WILL VERBALIZE/DEMONSTRATE UNDERSTANDING OF CARE AND MANAGEMENT OF URINARY TRACT INFECTION BY EOE. Goal Provider Goal - PATIENT WILL DEMONSTRATE IMPROVEMENT IN S/S OF UTI TO AVOID HOSPITALIZATION. Goal Provider Goal - Goal Provider Goal - OT LTG: PATIENT WILL DEMONSTRATE IMPROVED ABILITY TO PERFORM BATHING/SHOWERING AND REDUCE CAREGIVER BURDEN FROM MOD A TO MIN A WITHIN 8 WEEKS. OT LTG: PATIENT WILL DEMONSTRATE IMPROVED ABILITY TO PERFORM CHAIR TRANSFERS TO REDUCE THE RISK OF SKIN BREAKDOWN AND IMPROVE PARTICIPATION IN ADLS FROM CGA TO IND WITHIN 8 WEEKS OT LTG: PATIENT WILL DEMONSTRATE IMPROVED ABILITY TO PERFORM TOILET TRANSFERS TO REDUCE FALL RISK AND RISK OF INCONTINENCE AND UTI DEVELOPMENT FROM CGA TO SUP WITHIN 8 WEEKS OT LTG: PATIENT WILL DEMONSTRATE IMPROVED ABILITY AND SAFETY TO PERFORM BATH/SHOWER TRANSFER FROM CGA TO SUP WITHIN 8 WEEKS OT LTG: CAREGIVER WILL DEMONSTRATE IMPROVED KNOWLEDGE OF FLOOR RECOVERY TO DECREASE THE RISK OF SKIN BREAKDOWN AND ADVERSE HEALTH OUTCOMES FROM UNABLE TO IND WITHIN 8 WEEKS. OT LTG: PATIENT WILL DEMONSTRATE IMPROVED POSTURAL CONTROL AND DECREASED FALL RISK EVIDENCED BY AN IMPROVEMENT IN FUNCTIONAL REACH SCORE FROM TO WITHIN 8 WEEKS IN ORDER TO DECREASE RISK OF FALLING OT LTG: PATIENT WILL DEMONSTRATE IMPROVED BUE MUSCLE STRENGTH EVIDENCED BY AN IMPROVEMENT IN MMT/FUNCTIONAL STRENGTH FROM 4/5 TO 4+/5 WITHIN 8 WEEKS IN ORDER TO INCREASE INDEPENDENCE WITH FUNCTIONAL TRANSFERS LTG OT: PATIENT S HEART FAILURE WILL REMAIN WELL CONTROLLED THROUGHOUT THE EPISODE OF CARE. OT GOAL: PATIENT WILL NOT EXHIBIT SIGNS AND SYMPTOMS OF ANTICOAGULANT TOXICITY THROUGHOUT THE EPISODE OF CARE. OT LTG: PATIENT WILL MAINTAIN OXYGEN SATURATION WITHIN PHYSICIAN ORDERED PARAMETERS THROUGHOUT THE EPISODE OF CARE. OT LTG: PATIENT WILL DEMONSTRATE UNDERSTANDING OF PAIN MANAGEMENT TECHNIQUES NEEDED DURING EPISODE OF CARE OT LTG: PATIENT/CAREGIVER WILL BE ABLE TO IMPLEMENT RECOMMENDATIONS SPECIFIC TO FALL REDUCTION FOR IMPROVED ADL/IADL COMPLETION AND HOME SAFETY BY END OF EPISODE. Goal Provider Goal - PT LTG: PATIENT WILL DEMONSTRATE REDUCED FALL RISK EVIDENCED BY IMPROVED SELF- SELECTED WALKING SPEED (SSWS CUT SCORE 0.6 TO 0.9 INDICATES MODERATE FALL RISK, 0.6 M/S INDICATES HIGH FALL RISK) FROM 0.6 M/SEC TO 1.0 M/SEC WITHIN 4 WEEKS PT LTG: PATIENT WILL DEMONSTRATE REDUCED FALL RISK EVIDENCED BY TUG TEST (CUT SCORE >11 SECONDS INDICATES INCREASED FALL RISK) IMPROVING FROM NOT TESTED TO 20 SECONDS WITHIN 4 WEEKS PT LTG: PATIENT WILL DEMONSTRATE INCREASED STRENGTH OF LE FROM 3/5 TO 4/5 WITHIN 4 WEEKS IN ORDER TO IMPROVE STABILITY DURING WEIGHTBEARING PT LTG: PATIENT WILL DEMONSTRATE IMPROVED ABILITY TO PERFORM FLOOR RECOVERY TO DECREASE THE RISK OF SKIN BREAKDOWN AND ADVERSE HEALTH OUTCOMES FROM UNABLE TO MIN ASSIST WITHIN 4 WEEKS PT STG: PATIENT WILL DEMONSTRATE IMPROVED ABILITY TO PERFORM SIT TO/FROM STAND TRANSFERS TO REDUCE THE RISK OF SKIN BREAKDOWN AND REDUCE FALL RISK FROM CGA TO INDEPENDENT WITHIN 4 WEEKS PT LTG: PATIENT WILL MAINTAIN OXYGEN SATURATION WITHIN PHYSICIAN ORDERED PARAMETERS THROUGHOUT EPISODE OF CARE. PT GOAL: PATIENT WILL DEMONSTRATE UNDERSTANDING OF PAIN MANAGEMENT TECHNIQUES EVIDENCED BY REDUCED PAIN IN KNEES FROM %+/10 TO 4/10 WITHIN 4 WEEKS PT LTG: PATIENT/CAREGIVER WILL DEMONSTRATE ADHERENCE TO FALL REDUCTION SELF-MANAGEMENT AND REDUCING FALL RISK FACTORS TO MINIMIZE FALL RISK BY END OF EPISODE . PT STG: PATIENT WILL BE ABLE TO WEIGH SELF PT LTG: PATIENT/CAREGIVER WILL BE ABLE TO IDENTIFY SIGNS OF EXACERBATION OF HEART FAILURE AND VERBALIZE / DEMONSTRATE HOW TO MANAGE SYMPTOMS AND HOW TO ADHERE TO HEART FAILURE SELF-MANAGEMENT AND LIFE-STYLE CHANGES BY END OF EPISODE. Encounters Start Date/Time End Date/Time Encounter Type Admission Type Attending [facility] Care Facility Care Department Encounter ID Discharge Date Discharge Status Discharge Condition Discharge Reason Percent Goals Met 2025-05-24 00:00:00 2025-07-22 00:00:00 Outpatient [facility] [id number]
--- OUTSIDE RECORDS SUMMARY | 2025-07-21 19:00 | XMS_ITS | Clinical Summary ---
Author Organization Unknown Care Team Providers Care Brush Worker Name Role Phone CARL VILLARREALTE, RAMOS Unavailable Jo vailable PENDTAD INSPECTOR PRODUCTION PLASTIC PARTS, LARISA Unavailable Unavailable FECTEAU SLEEVE FIXER, PEPITO Unavailable Unavailable MULU RN, RADHA Unavailable Unavailab salvador MCCLAIN PT, HERBIE Unavailable Unavail able READING OT, RANDALL Unavailable Unavailable SIGRID PT, GAIL Unavailable Unavailable Payers Payer Name Policy Type Policy Number Effective Date Expira tion Date MEDICARE.NGS.PDGM [id number] Problems Condition Name Condition Details Condition Category [...] HYPERLIPIDEM IA, UNSPECIFIED Active 03-16 00:00: 00 GROUP HOME (CURRENT) USE OF ANTICOAGULAN TS Active 03-16 00:00: 00 IT INTERN (CURRENT) USE OF ORAL HYPOGLYCEMIC DRUGS Active [...] 2024-06 00:00: 00 03-25 00:00 :00 No [id number] Per instruc tions Per instructio ns (route: transderma l) Med Classific ation: Cognitive Disorder Therapy warfarin 5 mg tablet 03-11 00:00: 00 Yes [id number] BLOOD THINNER Per instruc tions DAILY Per instructio ns DAILY (route: oral) Med Classific ation: Hematolog ical Agents amiodarone 200 mg tablet 03-10 00:00: 00 Yes [id number] CHF 1 tablet DAILY 1 tablet DAILY (route: oral) Med Classific ation: Cardiovas cular Therapy Agents bupropion HCl XL 300 mg 24 hr tablet, extended release 03-10 00:00: 00 Yes [id number] DEMENTIA 1 tablet DAILY 1 tablet DAILY (route: oral) Med Classific ation: Central Nervous System Agents buspirone 5 mg tablet 03-10 00:00: 00 Yes [id number] ANXIETY 1 tablet 2 TIMES DAILY 1 tablet 2 TIMES DAILY (route: oral) Med Classific ation: Central Nervous System Agents glimepiride 1 mg tablet 03-10 00:00: 00 Yes [id number] DM 1 tablet DAILY 1 tablet DAILY (route: oral) Med Classific ation: Endocrine memantine 21 mg capsule sprinkle,ex tended release 24hr 03-10 00:00: 00 Yes [id number] DEMENTIA 1 capsule DAILY 1 capsule DAILY (route: oral) Med Classific ation: Cognitive Disorder Therapy metformin 1,000 mg tablet 03-10 00:00: 00 Yes [id number] DM 0.5 tablet DAILY 0.5 tablet DAILY (route: oral) Med Classific ation: Endocrine simvastatin 10 mg tablet 03-10 00:00: 00 Yes [id number] HIGH CHOLESTEROL 1 tablet DAILY 1 tablet DAILY (route: oral) Med Classific ation: Cardiovas cular Therapy Agents bumetanide 1 mg tablet 2024-06 00:00: 00 Yes [id number] FLUID RETENTION 0.5 mg DAILY 0.5 mg DAILY (route: oral) Med Classific ation: Cardiovas cular Therapy Agents Fish Oil 1,000 mg (120 mg-180 mg) capsule 2024-06 00:00: 00 Yes [id number] HEART 1 capsule 2 TIMES DAILY 1 capsule 2 TIMES DAILY (route: oral) Med Classific ation: Cardiovas cular Therapy Agents acetaminoph en 325 mg tablet 2024-06 008 00:00: 00 Yes [id number] pain 2 tablet EVERY 6 HOURS 2 [...] CONSULTING PHYSICIANS. RN TO OBSERVE AND ASSESS, INSPECTOR PRODUCTION PLASTIC PARTS/SUB PRIOR TO OBSERVE FOR RISK FOR FALLS AND INSTRUCT IN FALL PREVENTION, HOME SAFETY, MEDICATION MANAGEMENT, INFECTION PREVENTION, AND NUTRITION MANAGEMENT. RN/INSPECTOR PRODUCTION PLASTIC PARTS/SUB PRIOR NURSE MAY PERFORM O2 SATURATION LEVEL ON ADMISSION AND PRN FOR RN TO ASSESS/INSPECTOR PRODUCTION PLASTIC PARTS TO OBSERVE PATIENT, WITH NOTIFICATION TO THE PHYSICIAN IF SATURATION IS 90% IN THE ABSENCE OF MORE SPECIFIC PARAMETERS FROM THE PHYSICIAN. AGENCY MAY PERFORM A RESUMPTION OF CARE VISIT FOLLOWING ANY HOSPITAL ADMISSION. RN/INSPECTOR PRODUCTION PLASTIC PARTS/SUB PRIOR TO MONITOR CO-MORBID CONDITIONS LISTED ON THE PLAN OF CARE AND ANY NEW CONDITIONS THAT PRESENT THEMSELVES DURING THIS EPISODE TO IDENTIFY CHANGES AND INTERVENE TO MINIMIZE COMPLICATIONS. [code = RN TO OBSERVE, ASSESS, EVALUATE, AND DEVELOP AN INDIVIDUALIZED PLAN OF CARE. AGENCY MAY ACCEPT ORDERS FROM CONSULTING PHYSICIANS. RN TO OBSERVE AND ASSESS, INSPECTOR PRODUCTION PLASTIC PARTS/SUB PRIOR TO OBSERVE FOR RISK FOR FALLS AND INSTRUCT IN FALL PREVENTION, HOME SAFETY, MEDICATION MANAGEMENT, INFECTION PREVENTION, AND NUTRITION MANAGEMENT. RN/INSPECTOR PRODUCTION PLASTIC PARTS/SUB PRIOR NURSE MAY PERFORM O2 SATURATION LEVEL ON ADMISSION AND PRN FOR RN TO ASSESS/INSPECTOR PRODUCTION PLASTIC PARTS TO OBSERVE PATIENT, WITH NOTIFICATION TO THE PHYSICIAN IF SATURATION IS 90% IN THE ABSENCE OF MORE SPECIFIC PARAMETERS FROM THE PHYSICIAN. AGENCY MAY PERFORM A RESUMPTION OF CARE VISIT FOLLOWING ANY HOSPITAL ADMISSION. RN/INSPECTOR PRODUCTION PLASTIC PARTS/SUB PRIOR TO MONITOR CO-MORBID CONDITIONS LISTED ON THE PLAN OF CARE AND ANY NEW CONDITIONS THAT PRESENT THEMSELVES DURING THIS EPISODE TO IDENTIFY CHANGES AND INTERVENE TO MINIMIZE COMPLICATIONS.] Future Scheduled Test MEDICATION MANAGEMENT; RN/INSPECTOR PRODUCTION PLASTIC PARTS/SUB PRIOR TO REVIEW MEDICATIONS FOR INTERACTIONS, EFFECTIVENESS OF DRUG THERAPY, AND SIGNS/SYMPTOMS OF ADVERSE REACTIONS. MAY INSTRUCT AND REINFORCE MEDICATION TEACHING RELATED TO THE USE OF MEDICATIONS, DOSAGE, FREQUENCY, PURPOSE, SIDE EFFECTS, AND TO REPORT COMPLICATIONS. [code = MEDICATION MANAGEMENT; RN/INSPECTOR PRODUCTION PLASTIC PARTS/SUB PRIOR TO REVIEW MEDICATIONS FOR INTERACTIONS, EFFECTIVENESS OF DRUG THERAPY, AND SIGNS/SYMPTOMS OF ADVERSE REACTIONS. MAY INSTRUCT AND REINFORCE MEDICATION TEACHING RELATED TO THE USE OF MEDICATIONS, DOSAGE, FREQUENCY, PURPOSE, SIDE EFFECTS, AND TO REPORT COMPLICATIONS.] Future Scheduled Test RISK FOR H OSPITALIZATION; RN TO ASSESS/TEACH, SUB PRIOR/INSPECTOR PRODUCTION PLASTIC PARTS TO OBSERVE/TEACH PATIENT/CAREGIVER ON RISK FOR HOSPITALIZATION/EMERGENCY ROOM VISITS, TEACH SIGNS AND SYMPTOMS THAT PUT PATIENT AT RISK, WHEN TO NOTIFY NURSE/PHYSICIAN OF COMPLICATIONS/DECLINE, AND WHEN TO CALL 911. [code = RISK FOR HOSPITALIZATION; RN TO ASSESS/TEACH, SUB PRIOR/INSPECTOR PRODUCTION PLASTIC PARTS TO OBSERVE/TEACH PATIENT/CAREGIVER ON RISK FOR HOSPITALIZATION/EMERGENCY ROOM VISITS, TEACH SIGNS AND SYMPTOMS THAT PUT PATIENT AT RISK, WHEN TO NOTIFY NURSE/PHYSICIAN OF COMPLICATIONS/DECLINE, AND WHEN TO CALL 911.] Future Scheduled Test CARDIOVASC ULAR SYSTEM; RN TO ASSESS/TEACH, INSPECTOR PRODUCTION PLASTIC PARTS/SUB PRIOR TO OBSERVE/TEACH RELATED TO ALTERED CARDIOVASCULAR STATUS TO MINIMIZE COMPLICATIONS AND REDUCE HOSPITALIZATION. [code = CARDIOVASCULAR SYSTEM; RN TO ASSESS/TEACH, INSPECTOR PRODUCTION PLASTIC PARTS/SUB PRIOR TO OBSERVE/TEACH RELATED TO ALTERED CARDIOVASCULAR STATUS TO MINIMIZE COMPLICATIONS AND REDUCE HOSPITALIZATION.] Future Scheduled Test HEART FAIL URE; RN TO ASSESS/TEACH, INSPECTOR PRODUCTION PLASTIC PARTS/SUB PRIOR TO OBSERVE/TEACH CARDIOPULMONARY SYSTEM TO IDENTIFY SIGNS [...] [code = HEART FAILURE; RN TO ASSESS/TEACH, INSPECTOR PRODUCTION PLASTIC PARTS/SUB PRIOR TO OBSERVE/TEACH CARDIOPULMONARY SYSTEM TO IDENTIFY SIGNS [...] ARRHYTHMIA MANAGEMENT; RN TO ASSESS AND TEACH, INSPECTOR PRODUCTION PLASTIC PARTS/SUB PRIOR TO OBSERVE AND TEACH WARNING SIGNS AND SYMPTOMS TO AVOID HOSPITALIZATION. [code = ARRHYTHMIA MANAGEMENT; RN TO ASSESS AND TEACH, INSPECTOR PRODUCTION PLASTIC PARTS/SUB PRIOR TO OBSERVE AND TEACH WARNING SIGNS AND SYMPTOMS TO AVOID HOSPITALIZATION.] Future Scheduled Test SKIN INTEG RITY RN TO ASSESS AND TEACH, INSPECTOR PRODUCTION PLASTIC PARTS/SUB PRIOR TO OBSERVE AND TEACH INTEGUMENTARY STATUS TO IDENTIFY CHANGES AND INTERVENE TO MINIMIZE COMPLICATIONS. PROVIDE SKILLED TEACHING OF GENERAL WOUND AND SKIN CARE AND PREVENTION RELATED TO ACTUAL ALTERED SKIN INTEGRITY [code = SKIN INTEGRITY RN TO ASSESS AND TEACH, INSPECTOR PRODUCTION PLASTIC PARTS/SUB PRIOR TO OBSERVE AND TEACH INTEGUMENTARY STATUS TO IDENTIFY CHANGES AND INTERVENE TO MINIMIZE COMPLICATIONS. PROVIDE SKILLED TEACHING OF GENERAL WOUND AND SKIN CARE AND PREVENTION RELATED TO ACTUAL ALTERED SKIN INTEGRITY] Future Scheduled Test RN/INSPECTOR PRODUCTION PLASTIC PARTS/SUB PRIOR TO PERFORM/TEACH PATIENT/CAREGIVER WOUND CARE TO BLOOD BLISTER TO RIGHT LATERAL CALF: CLEANSE WITH NORMAL SALINE, APPLY PROTECTIVE FOAM DRESSING CHANGE DRESSING WEEKLY AND PRN FOR SOILAGE OR DISPLACEMENT RN/INSPECTOR PRODUCTION PLASTIC PARTS/SUB PRIOR TO PERFORM/TEACH PATIENT/CAREGIVER WOUND CARE TO BLOOD BLISTER TO LEFT SCALP CLEANSE WITH NORMAL SALINE, MONITOR FOR CHANGES IN SIZE, COLOR OR TURGOR, REPORT TO PRIMARY CARE [code = RN/INSPECTOR PRODUCTION PLASTIC PARTS/SUB PRIOR TO PERFORM/TEACH PATIENT/CAREGIVER WOUND CARE TO BLOOD BLISTER TO RIGHT LATERAL CALF: CLEANSE WITH NORMAL SALINE, APPLY PROTECTIVE FOAM DRESSING CHANGE DRESSING WEEKLY AND PRN FOR SOILAGE OR DISPLACEMENT RN/INSPECTOR PRODUCTION PLASTIC PARTS/SUB PRIOR TO PERFORM/TEACH PATIENT/CAREGIVER WOUND CARE TO BLOOD BLISTER TO LEFT SCALP CLEANSE WITH NORMAL SALINE, MONITOR FOR CHANGES IN SIZE, COLOR OR TURGOR, REPORT TO PRIMARY CARE] Future Scheduled Test PAIN MANAG EMENT; RN TO ASSESS AND TEACH, SUB PRIOR/INSPECTOR PRODUCTION PLASTIC PARTS TO OBSERVE AND TEACH AND PROVIDE EDUCATION ON PAIN MANAGEMENT TECHNIQUES. [code = PAIN MANAGEMENT; RN TO ASSESS AND TEACH, SUB PRIOR/INSPECTOR PRODUCTION PLASTIC PARTS TO OBSERVE AND TEACH AND PROVIDE EDUCATION ON PAIN MANAGEMENT TECHNIQUES.] Future Scheduled Test FALL REDUC TION MANAGEMENT; RN TO ASSESS AND OBSERVE, INSPECTOR PRODUCTION PLASTIC PARTS/SUB PRIOR TO OBSERVE FALL RISK FACTORS AND EDUCATE PATIENT/CAREGIVER ON STRATEGIES TO MINIMIZE THE RISK OF FALLING. [code = FALL REDUCTION MANAGEMENT; RN TO ASSESS AND OBSERVE, INSPECTOR PRODUCTION PLASTIC PARTS/SUB PRIOR TO OBSERVE FALL RISK FACTORS AND EDUCATE PATIENT/CAREGIVER ON STRATEGIES TO MINIMIZE THE RISK OF FALLING.] Future Scheduled Test DIABETES M ONITORING RN/SUB PRIOR/INSPECTOR PRODUCTION PLASTIC PARTS TO MONITOR BLOOD SUGAR LOG FOR BLOOD SUGAR READINGS THAT ARE BEING CHECKED BY CAREGIVER DAILY. PATIENT THERAPEUTIC BLOOD SUGAR PARAMETERS ARE 80 - 200. REPORT BLOOD SUGARS OUT OF RANGE TO PHYSICIAN. NURSE MAY PERFORM FINGER STICK BLOOD GLUCOSE NEEDED FOR SIGNS AND SYMPTOMS OF HYPO AND HYPERGLYCEMIA. RN/SUB PRIOR/INSPECTOR PRODUCTION PLASTIC PARTS TO MONITOR ADHERENCE OF CAREGIVER PERFORMING DIABETIC FOOT CARE AND MAY PERFORM DIABETIC FOOT CARE PRN. RN/SUB PRIOR/INSPECTOR PRODUCTION PLASTIC PARTS TO MONITOR FOR ADHERENCE TO DIABETIC SELF-CARE AND MANAGEMENT INCLUDING MEDICATIONS. [code = DIABETES MONITORING RN/SUB PRIOR/INSPECTOR PRODUCTION PLASTIC PARTS TO MONITOR BLOOD SUGAR LOG FOR BLOOD SUGAR READINGS THAT ARE BEING CHECKED BY CAREGIVER DAILY. PATIENT THERAPEUTIC BLOOD SUGAR PARAMETERS ARE 80 - 200. REPORT BLOOD SUGARS OUT OF RANGE TO PHYSICIAN. NURSE MAY PERFORM FINGER STICK BLOOD GLUCOSE NEEDED FOR SIGNS AND SYMPTOMS OF HYPO AND HYPERGLYCEMIA. RN/SUB PRIOR/INSPECTOR PRODUCTION PLASTIC PARTS TO MONITOR ADHERENCE OF CAREGIVER PERFORMING DIABETIC FOOT CARE AND MAY PERFORM DIABETIC FOOT CARE PRN. RN/SUB PRIOR/INSPECTOR PRODUCTION PLASTIC PARTS TO MONITOR FOR ADHERENCE TO DIABETIC SELF-CARE AND MANAGEMENT INCLUDING MEDICATIONS.] Future Scheduled Test GENITOURIN MAICOL MANAGEMENT; RN TO ASSESS AND TEACH, INSPECTOR PRODUCTION PLASTIC PARTS/SUB PRIOR TO OBSERVE AND TEACH RELATED TO ALTERED GENITOURINARY STATUS TO MINIMIZE COMPLICATIONS AND REDUCE HOSPITALIZATION. [code = GENITOURINARY MANAGEMENT; RN TO ASSESS AND TEACH, INSPECTOR PRODUCTION PLASTIC PARTS/SUB PRIOR TO OBSERVE AND TEACH RELATED TO ALTERED GENITOURINARY STATUS TO MINIMIZE COMPLICATIONS AND REDUCE HOSPITALIZATION.] Future Scheduled Test URINARY TR ACT INFECTION MANAGEMENT; RN/SUB PRIOR/INSPECTOR PRODUCTION PLASTIC PARTS TO PROVIDE SKILLED TEACHING AND SELF- CARE MANAGEMENT RELATED TO UTI TO MINIMIZE COMPLICATIONS AND REDUCE THE RISK OF HOSPITALIZATION. [code = URINARY TRACT INFECTION MANAGEMENT; RN/SUB PRIOR/INSPECTOR PRODUCTION PLASTIC PARTS TO PROVIDE SKILLED TEACHING AND SELF- CARE MANAGEMENT RELATED TO UTI TO MINIMIZE COMPLICATIONS AND REDUCE THE RISK OF HOSPITALIZATION.] Future Scheduled Test URINARY MO LECULAR TESTING PROTOCOL UP TO 2 PRN RN/INSPECTOR PRODUCTION PLASTIC PARTS/SUB PRIOR VISITS MAY BE PERFORMED FOR S/S OF UTI. RN TO ASSESS, INSPECTOR PRODUCTION PLASTIC PARTS/SUB PRIOR TO OBSERVE INITIATION OF UTI PROTOCOL. RN/SUB PRIOR/INSPECTOR PRODUCTION PLASTIC PARTS TO INSTRUCT PATIENT AND/OR CAREGIVER ON S/S OF UTI TO REPORT TO RN/SUB PRIOR/INSPECTOR PRODUCTION PLASTIC PARTS IF NEW OR WORSENING SYMPTOMS. DRINK PLENTY OF WATER THROUGHOUT THE DAY TO MAINTAIN HYDRATION (UNLESS CONTRAINDICATED.) URINATE WHEN THE URGE IS FELT, DO NOT WAIT. WASH GENITALS DAILY. WIPE FROM FRONT TO BACK AFTER HAVING A BOWEL MOVEMENT. RN/SUB PRIOR/INSPECTOR PRODUCTION PLASTIC PARTS TO OBTAIN URINE SPECIMEN FOR MOLECULAR URINE TESTING BY RN/SUB PRIOR/INSPECTOR PRODUCTION PLASTIC PARTS TO OBTAIN URINE SPECIMEN FOR U/A WITH [...] MOLECULAR TESTING PROTOCOL UP TO 2 PRN RN/INSPECTOR PRODUCTION PLASTIC PARTS/SUB PRIOR VISITS MAY BE PERFORMED FOR S/S OF UTI. RN TO ASSESS, INSPECTOR PRODUCTION PLASTIC PARTS/SUB PRIOR TO OBSERVE INITIATION OF UTI PROTOCOL. RN/SUB PRIOR/INSPECTOR PRODUCTION PLASTIC PARTS TO INSTRUCT PATIENT AND/OR CAREGIVER ON S/S OF UTI TO REPORT TO RN/SUB PRIOR/INSPECTOR PRODUCTION PLASTIC PARTS IF NEW OR WORSENING SYMPTOMS. DRINK PLENTY OF WATER THROUGHOUT THE DAY TO MAINTAIN HYDRATION (UNLESS CONTRAINDICATED.) URINATE WHEN THE URGE IS FELT, DO NOT WAIT. WASH GENITALS DAILY. WIPE FROM FRONT TO BACK AFTER HAVING A BOWEL MOVEMENT. RN/SUB PRIOR/INSPECTOR PRODUCTION PLASTIC PARTS TO OBTAIN URINE SPECIMEN FOR MOLECULAR URINE TESTING BY RN/SUB PRIOR/INSPECTOR PRODUCTION PLASTIC PARTS TO OBTAIN URINE SPECIMEN FOR U/A WITH [...] Scheduled Test PRN VISITS ; NUMBER OF RN/INSPECTOR PRODUCTION PLASTIC PARTS/SUB PRIOR VISITS: 2 RN/INSPECTOR PRODUCTION PLASTIC PARTS/SUB PRIOR TO PERFORM: INR/URINARY MANAGEMENT FOR THE FOLLOWING REASONS: UTI, UNSTABLE INR [code = PRN VISITS; NUMBER OF RN/INSPECTOR PRODUCTION PLASTIC PARTS/SUB PRIOR VISITS: 2 RN/INSPECTOR PRODUCTION PLASTIC PARTS/SUB PRIOR TO PERFORM: INR/URINARY MANAGEMENT FOR THE FOLLOWING REASONS: UTI, UNSTABLE INR] Future Scheduled Test AGENCY MAY PERFORM A RESUMPTION OF CARE VISIT FOLLOWING ANY HOSPITAL ADMISSION. OT TO EVALUATE, OBSERVE / ASSESS, AND MONITOR, JESS TO OBSERVE AND MONITOR, PROVIDE SKILLED THERAPEUTIC INTERVENTION, ACTIVITY, EDUCATION, AND TRAINING TO ADDRESS; BATHING/SHOWERING (OT/FULL STACK NET DEVELOPER) CHAIR TRANSFERS (OT/JESS) TOILET TRANSFER (OT/FULL STACK NET DEVELOPER) BATH/SHOWER TRANSFER (OT/JESS) FLOOR RECOVERY (OT/JESS) POSTURAL CONTROL/BALANCE (OT/FULL STACK NET DEVELOPER) THERAPEUTIC EXERCISE (OT/FULL STACK NET DEVELOPER) OT TO ASSESS / JESS TO MONITOR FOR HEART FAILURE EXACERBATION AND RECORD PATIENT REPORTED WEIGHT, AND NOTIFY THE PHYSICIAN AND/OR THE RN CLINICAL TRAILER MECHANIC FOR PHYSICIAN NOTIFICATION OF HF EXACERBATION (2LB WEIGHT GAIN IN 1 DAY, 5LBS IN A WEEK OR 5 LBS OVER BASELINE; INCREASED SOB, EDEMA, NEEDING MORE PILLOWS AT NIGHT, CRACKLES IN BASIS OF THE LUNGS OR PMI SHIFT). OT/FULL STACK NET DEVELOPER TO MONITOR FOR AND REPORT EARLY SIGNS OF ANTICOAGULANT TOXICITY TO THE PHYSICIAN AND/OR THE RN CLINICAL TRAILER MECHANIC FOR PHYSICIAN NOTIFICATION AND TO PROVIDE PATIENT/CAREGIVER EDUCATION ON ANTICOAGULANT THERAPY OT/FULL STACK NET DEVELOPER TO MONITOR AND EDUCATE ON OXYGEN SATURATION DURING ADLS/IADLS, NOTIFY PHYSICIAN AND/OR THE RN CLINICAL TRAILER MECHANIC FOR PHYSICIAN NOTIFICATION AND IF O2 SATS BELOW 90% AFTER 10 MIN OF REST. OT/JESS MAY EDUCATE ON PAIN MANAGEMENT CLINICALLY INDICATED. OT / FULL STACK NET DEVELOPER TO IDENTIFY FALL RISK FACTORS; EDUCATE THE PATIENT/CAREGIVER ON WAYS TO REDUCE FALL RISK FACTORS AND ESTABLISH HOME EXERCISE PROGRAM TO MINIMIZE FALL RISK. MAY TEACH THE PATIENT FLOOR RECOVERY WHEN CLINICALLY APPROPRIATE. [code = AGENCY MAY PERFORM A RESUMPTION OF CARE VISIT FOLLOWING ANY HOSPITAL ADMISSION. OT TO EVALUATE, OBSERVE / ASSESS, AND MONITOR, FULL STACK NET DEVELOPER TO OBSERVE AND MONITOR, PROVIDE SKILLED THERAPEUTIC INTERVENTION, ACTIVITY, EDUCATION, AND TRAINING TO ADDRESS; BATHING/SHOWERING (OT/JESS) CHAIR TRANSFERS (OT/FULL STACK NET DEVELOPER) TOILET TRANSFER (OT/FULL STACK NET DEVELOPER) BATH/SHOWER TRANSFER (OT/JESS) FLOOR RECOVERY (OT/JESS) POSTURAL CONTROL/BALANCE (OT/FULL STACK NET DEVELOPER) THERAPEUTIC EXERCISE (OT/FULL STACK NET DEVELOPER) OT TO ASSESS / JESS TO MONITOR FOR HEART FAILURE EXACERBATION AND RECORD PATIENT REPORTED WEIGHT, AND NOTIFY THE PHYSICIAN AND/OR THE RN CLINICAL TRAILER MECHANIC FOR PHYSICIAN NOTIFICATION OF HF EXACERBATION (2LB WEIGHT GAIN IN 1 DAY, 5LBS IN A WEEK OR 5 LBS OVER BASELINE; INCREASED SOB, EDEMA, NEEDING MORE PILLOWS AT NIGHT, CRACKLES IN BASIS OF THE LUNGS OR PMI SHIFT). OT/JESS TO MONITOR FOR AND REPORT EARLY SIGNS OF ANTICOAGULANT TOXICITY TO THE PHYSICIAN AND/OR THE RN CLINICAL TRAILER MECHANIC FOR PHYSICIAN NOTIFICATION AND TO PROVIDE PATIENT/CAREGIVER EDUCATION ON ANTICOAGULANT THERAPY OT/JESS TO MONITOR AND EDUCATE ON OXYGEN SATURATION DURING ADLS/IADLS, NOTIFY PHYSICIAN AND/OR THE RN CLINICAL TRAILER MECHANIC FOR PHYSICIAN NOTIFICATION AND IF O2 SATS BELOW 90% AFTER 10 MIN OF REST. OT/FULL STACK NET DEVELOPER MAY EDUCATE ON PAIN MANAGEMENT CLINICALLY INDICATED. OT / FULL STACK NET DEVELOPER TO IDENTIFY FALL RISK FACTORS; EDUCATE THE PATIENT/CAREGIVER ON WAYS TO REDUCE FALL RISK FACTORS AND ESTABLISH HOME EXERCISE PROGRAM TO MINIMIZE FALL RISK. MAY TEACH THE PATIENT FLOOR RECOVERY WHEN CLINICALLY APPROPRIATE.] Future Scheduled Test AGENCY MAY PERFORM A RESUMPTION OF CARE VISIT FOLLOWING ANY HOSPITAL ADMISSION. PT TO EVALUATE, OBSERVE / ASSESS, AND MONITOR, SLEEVE FIXER TO OBSERVE AND MONITOR, PROVIDE SKILLED THERAPEUTIC INTERVENTION, ACTIVITY, EDUCATION, AND TRAINING TO ADDRESS; PT/SLEEVE FIXER TO PROVIDE GAIT TRAINING FOR IMPROVED MOBILITY AND /OR TO NORMALIZE GAIT PATTERN NEUROMUSCULAR RE-EDUCATION / BALANCE / POSTURAL CONTROL (PT) THERAPEUTIC EXERCISES AND ESTABLISHING A HOME EXERCISE PROGRAM (PT/SLEEVE FIXER) FLOOR RECOVERY (PT/SLEEVE FIXER) SIT TO/FROM STAND TRANSFERS (PT/SLEEVE FIXER) PT / SLEEVE FIXER TO MONITOR AND EDUCATE ON OXYGEN SATURATION DURING ADLS/IADLS, NOTIFY PHYSICIAN AND/OR THE RN CLINICAL TRAILER MECHANIC FOR PHYSICIAN NOTIFICATION AND IF O2 SATS BELOW PHYSICIAN ORDERED PARAMETERS AFTER 10 MIN OF REST PT / SLEEVE FIXER MAY EDUCATE ON PAIN MANAGEMENT CLINICALLY INDICATED, INCLUDING NON-PHARMACOLOGICAL PAIN REDUCTION TECHNIQUES AND USE OF CRYOTHERAPY OR HEAT UP TO 20 MIN AT A TIME FOR PAIN MANAGEMENT 3-5 TIMES PER DAY TO LE/KNEES PT/SLEEVE FIXER TO IDENTIFY FALL RISK FACTORS; EDUCATE THE PATIENT/CAREGIVER ON WAYS TO REDUCE FALL RISK FACTORS AND ESTABLISH HOME EXERCISE PROGRAM TO MINIMIZE FALL RISK. MAY TEACH THE PATIENT FLOOR RECOVERY WHEN CLINICALLY APPROPRIATE PT / SLEEVE FIXER TO EDUCATE ON HEART FAILURE SELF-MANAGEMENT [code = AGENCY MAY PERFORM A RESUMPTION OF CARE VISIT FOLLOWING ANY HOSPITAL ADMISSION. PT TO EVALUATE, OBSERVE / ASSESS, AND MONITOR, SLEEVE FIXER TO OBSERVE AND MONITOR, PROVIDE SKILLED THERAPEUTIC INTERVENTION, ACTIVITY, EDUCATION, AND TRAINING TO ADDRESS; PT/SLEEVE FIXER TO PROVIDE GAIT TRAINING FOR IMPROVED MOBILITY AND /OR TO NORMALIZE GAIT PATTERN NEUROMUSCULAR RE-EDUCATION / BALANCE / POSTURAL CONTROL (PT) THERAPEUTIC EXERCISES AND ESTABLISHING A HOME EXERCISE PROGRAM (PT/SLEEVE FIXER) FLOOR RECOVERY (PT/SLEEVE FIXER) SIT TO/FROM STAND TRANSFERS (PT/SLEEVE FIXER) PT / SLEEVE FIXER TO MONITOR AND EDUCATE ON OXYGEN SATURATION DURING ADLS/IADLS, NOTIFY PHYSICIAN AND/OR THE RN CLINICAL TRAILER MECHANIC FOR PHYSICIAN NOTIFICATION AND IF O2 SATS BELOW PHYSICIAN ORDERED PARAMETERS AFTER 10 MIN OF REST PT / SLEEVE FIXER MAY EDUCATE ON PAIN MANAGEMENT CLINICALLY INDICATED, INCLUDING NON-PHARMACOLOGICAL PAIN REDUCTION TECHNIQUES AND USE OF CRYOTHERAPY OR HEAT UP TO 20 MIN AT A TIME FOR PAIN MANAGEMENT 3-5 TIMES PER DAY TO LE/KNEES PT/SLEEVE FIXER TO IDENTIFY FALL RISK FACTORS; EDUCATE THE PATIENT/CAREGIVER ON WAYS TO REDUCE FALL RISK FACTORS AND ESTABLISH HOME EXERCISE PROGRAM TO MINIMIZE FALL RISK. MAY TEACH THE PATIENT FLOOR RECOVERY WHEN CLINICALLY APPROPRIATE PT / SLEEVE FIXER TO EDUCATE ON HEART FAILURE SELF-MANAGEMENT] Goal [...] End Date/Time Encounter Type Admission Type Attending [facility] Facility Care Department Encounter ID Discharge Date Discharge Status Discharge Condition Discharge Reason Percent Goals Met 2025-05-24 00:00:00 2025-07-22 00:00:00 Outpatient [facility]EL[facility]ART[facility] [id number]
== END 2025-06-06 07:20 | disposition home or self-care (01) ==
LOC: HO.MMNH2L 07:19
PROVIDERS: Visit Provider Physician Assistant Medical
DX: M76.10 Psoas tendinitis, unspecified hip (principal); Z13.1 Encounter for screening for diabetes mellitus
CPT/HCPCS: 36415; 80053; 83036; 85025